=== PATIENT | female | born 1940 | race Two or more races ===

== ENCOUNTER 2019-04-23 08:05 | Emergency (ER) | payer OTHER ==
[~2019-04-23] VITALS: Ht 154.9 cm; Wt 79.4 kg
[2019-04-23 08:35] LABS: Urine WBC None Seen /hpf (0 - 5)
[2019-04-23 08:37] LABS: Basophils # (auto) 0.1 uL; Eosinophils # (auto) 0.1 uL; Hemoglobin 12.7 g/dL (12.2-16.2); Monocytes # (auto) 0.5 uL; Neutrophils # (auto) 4.3 uL; Nucleated Red Blood Cells % 0.1 %
[2019-04-23 08:38] LABS: Basophils % (auto) 1.2 % (0.0-2.0); Eosinophils % (auto) 1.6 % (0.0-7.0); Hematocrit 37.4 % (36.0-46.0); Lymphocytes # (auto) 1.4 uL; Lymphocytes % (auto) 21.6 % (10.0-50.0); Mean Corpuscular Hemoglobin 34.4 pg (28.0-32.0); Mean Corpuscular Hgb Conc. 34.1 g/dL (32.0-36.0); Mean Corpuscular Volume 100.9 fL (80.0-100.0); Monocytes % (auto) 7.9 % (0.0-12.0); Neutrophils % (auto) 67.7 % (37.0-80.0); Platelet Count (auto) 195 10^3/uL (140-450); Red Blood Cells 3.71 10^6/uL (4.0-5.20); Red Cell Distribution Width 14.9 % (11.8-14.3); White Blood Cell 6.3 10^3/uL (4.4-10.8)
[2019-04-23 08:49] LABS: Urine Bacteria NONE SEEN /hpf (None Seen); Urine Blood Negative /uL (Negative); Urine Specific Gravity 1.004 (1.001-1.035)
[2019-04-23 08:52] LABS: Albumin 3.4 g/dL (3.4-5.0); BUN/Creatinine Ratio 16.2; Calcium 8.2 mg/dL (8.5-10.1)
[2019-04-23 08:55] LABS: Bilirubin, Total 0.2 mg/dL (0.2-1.0); Total Protein 7.6 g/dL (6.4-8.2)
[2019-04-23 09:04] LABS: INR < 0.93 (0.9-1.15); Partial Thromboplastin Time 34.8 sec (23.64-32.05)
[2019-04-23 09:55] VITALS: BP 166/84
== END 2019-04-23 09:58 | disposition home or self-care (01) ==
LOC: ER 08:05
DX: R04.0 Epistaxis (principal); Z88.6 Allergy status to analgesic agent
CPT/HCPCS: 36415; 80053; 81001; 85025; 85610; 85730

== ENCOUNTER 2022-06-15 11:59 | Emergency (ER) | payer OTHER ==
[~2022-06-15] VITALS: Ht 152.4 cm; Wt 80.0 kg
[2022-06-15 13:21] VITALS: BP 145/79
[2022-06-15] MEDS ORDERED: PRED10TA PO (14:36)
[2022-06-15] MEDS ORDERED: LORA10CA7 PO (14:36)
== END 2022-06-15 14:53 | disposition home or self-care (01) ==
LOC: ER 11:59
DX: R21 Rash and other nonspecific skin eruption (principal); L29.9 Pruritus, unspecified; Z79.899 Other long term (current) drug therapy; Z88.5 Allergy status to narcotic agent

== ENCOUNTER → 2023-09-17 | Outpatient (CLI) | payer OTHER ==
[~2023-09-17] MED LIST: LORA10CA PO; PRED10TA PO
[2023-09-17 11:45] LABS: Basophils # (auto) 0.1 10 ^3/uL (0-0.2); Eosinophils # (auto) 0.4 10 ^3/uL (0-0.8); Monocytes # (auto) 0.8 10 ^3/uL (0-1.3); Neutrophils # (auto) 3.7 10 ^3/uL (1.6-8.6)
[2023-09-17 11:46] LABS: Basophils % (auto) 0.9 % (0.0-2.0); Eosinophils % (auto) 4.4 % (0.0-7.0); Hematocrit 38.5 % (36.0-46.0); Hemoglobin 12.7 g/dL (12.2-16.2); Lymphocytes # (auto) 3.8 10 ^3/uL (0.4-5.4); Mean Corpuscular Hemoglobin 34.2 pg (28.0-32.0); Mean Corpuscular Volume 103.5 fL (80.0-100.0); Neutrophils % (auto) 42.7 % (37.0-80.0); Red Blood Cells 3.72 10^6/uL (4.0-5.20); Red Cell Distribution Width 15.5 % (11.8-14.3); White Blood Cell 8.7 10^3/uL (4.4-10.8)
[2023-09-17 12:27] LABS: Alanine Aminotransferase 13 U/L (7-40); Albumin 4.1 g/dL (3.2-4.8); Alkaline Phosphatase 98 U/L (46-116); Anion Gap 7 (5-15); Aspartate Aminotransferase 23 U/L (13-40); BUN/Creatinine Ratio 13.3 (10.0-20.0); Blood Urea Nitrogen 10 mg/dL (9-23); Calcium 9.1 mg/dL (8.5-10.1); Carbon Dioxide 25 mmol/L (20-30); Chloride 107 mmol/L (98-107); Glucose 127 mg/dL (74-106); Potassium 4.3 mmol/L (3.5-5.1); Sodium 139 mmol/L (136-145)
[2023-09-17 12:28] LABS: Bilirubin, Total 0.3 mg/dL (0.2-1.0); Total Protein 7.3 g/dL (5.7-8.2)
[2023-09-17 12:32] LABS: Erythrocyte Sedimentation Rate 49 mm/hr (0-20)
[2023-09-17 12:36] LABS: CRP High Sensitivity 1.05 mg/dL (<1.0)
== END | disposition home or self-care (01) ==
LOC: LAB 11:31
PROVIDERS: ATTEND Internal Medicine Rheumatology
DX: M06.9 Rheumatoid arthritis, unspecified (principal)
CPT/HCPCS: 36415; 80053; 85025; 85652; 86141

== ENCOUNTER → 2024-02-29 | Outpatient (CLI) | payer OTHER ==
[2024-02-29 12:23] LABS: Eosinophils # (auto) 0.3 10 ^3/uL (0-0.8); Hemoglobin 12.9 g/dL (12.2-16.2); Lymphocytes # (auto) 2.6 10 ^3/uL (0.4-5.4); Lymphocytes % (auto) 28.7 % (10.0-50.0); Monocytes # (auto) 0.9 10 ^3/uL (0-1.3); Neutrophils # (auto) 5.2 10 ^3/uL (1.6-8.6)
[2024-02-29 12:24] LABS: Basophils # (auto) 0 10 ^3/uL (0-0.2); Basophils % (auto) 0.4 % (0.0-2.0); Hematocrit 37.5 % (36.0-46.0); Mean Corpuscular Hgb Conc. 34.5 g/dL (32.0-36.0); Mean Corpuscular Volume 101.3 fL (80.0-100.0); Monocytes % (auto) 9.9 % (0.0-12.0); Red Cell Distribution Width 15.3 % (11.8-14.3)
[2024-02-29 12:54] LABS: Alanine Aminotransferase 20 U/L (7-40); Albumin 4.1 g/dL (3.2-4.8); Alkaline Phosphatase 90 U/L (46-116); Anion Gap 6 (5-15); Aspartate Aminotransferase 25 U/L (13-40); BUN/Creatinine Ratio 13.2 (10.0-20.0); Blood Urea Nitrogen 9 mg/dL (9-23); Calcium 9.5 mg/dL (8.7-10.4); Carbon Dioxide 25 mmol/L (20-30); Chloride 106 mmol/L (98-107); Glucose 92 mg/dL (74-106); Potassium 4.3 mmol/L (3.5-5.1); Sodium 137 mmol/L (136-145)
[2024-02-29 12:55] LABS: Bilirubin, Total 0.3 mg/dL (0.2-1.0); Total Protein 7.5 g/dL (5.7-8.2)
== END | disposition home or self-care (01) ==
LOC: LAB 12:08
PROVIDERS: ATTEND Internal Medicine Rheumatology
DX: M05.79 Rheumatoid arthritis with rheumatoid factor of multiple sites without organ or systems involvement (principal)
CPT/HCPCS: 36415; 80053; 85025

== ENCOUNTER 2024-06-03 10:16 | Emergency (ER) | payer OTHER ==
[~2024-06-03] VITALS: Ht 152.4 cm; Wt 81.4 kg
[2024-06-03 11:33] VITALS: BP 142/66; PULSE 82; RESP 18; TEMP 97.9; O2SAT 94
[2024-06-03 11:36] LABS: Basophils # (auto) 0.1 10 ^3/uL (0-0.2); Eosinophils # (auto) 0.1 10 ^3/uL (0-0.8); Monocytes # (auto) 0.6 10 ^3/uL (0-1.3); Neutrophils # (auto) 5.3 10 ^3/uL (1.6-8.6)
[2024-06-03 11:37] LABS: Basophils % (auto) 1.1 % (0.0-2.0); Eosinophils % (auto) 1.6 % (0.0-7.0); Hematocrit 37.6 % (36.0-46.0); Hemoglobin 13.2 g/dL (12.2-16.2); Lymphocytes # (auto) 2.2 10 ^3/uL (0.4-5.4); Lymphocytes % (auto) 26.6 % (10.0-50.0); Mean Corpuscular Hemoglobin 34.8 pg (28.0-32.0); Mean Corpuscular Hgb Conc. 35.2 g/dL (32.0-36.0); Mean Corpuscular Volume 99.1 fL (80.0-100.0); Monocytes % (auto) 7.3 % (0.0-12.0); Neutrophils % (auto) 63.4 % (37.0-80.0); Nucleated Red Blood Cells % 0.1 %; Red Blood Cells 3.79 10^6/uL (4.0-5.20); Red Cell Distribution Width 14.6 % (11.8-14.3); White Blood Cell 8.4 10^3/uL (4.4-10.8)
[2024-06-03] MEDS: FAMOTIDINE 20 MG TAB PO ONE (11:43)
[2024-06-03 11:44] LABS: Urine Bacteria None Seen /hpf (None Seen); Urine WBC None Seen /hpf (0 - 5)
[2024-06-03] MEDS: PANTOPRAZOLE 40 MG/10 ML VIAL INJ IV ONE (11:44)
[2024-06-03] MEDS: MAALOX PLUS or MAALOX 30 ML PO ONE (11:44)
[2024-06-03] MEDS: LIDOCAINE VISCOUS 2% 15ML UD PO ONE (11:44)
[2024-06-03 11:47] VITALS: PULSE 81
[2024-06-03 11:51] LABS: INR 1.04 (0.9-1.15); Partial Thromboplastin Time 35.7 SEC (24.5-34.5)
[2024-06-03 11:52] LABS: Urine Blood Negative /uL (Negative); Urine Clarity Clear (Clear); Urine Protein, UAD Negative (Negative); Urine Specific Gravity 1.004 (1.001-1.035); Urine Urobilinogen Normal (Negative); Urine pH 6.5 (5.0-9.0)
[2024-06-03 11:54] LABS: Alanine Aminotransferase 28 U/L (7-40); Albumin 4.1 g/dL (3.2-4.8); Alkaline Phosphatase 93 U/L (46-116); Anion Gap 11 (5-15); Aspartate Aminotransferase 35 U/L (13-40); BUN/Creatinine Ratio 14.7 (10.0-20.0); Blood Urea Nitrogen 10 mg/dL (9-23); Calcium 9.9 mg/dL (8.7-10.4); Carbon Dioxide 23 mmol/L (20-30); Chloride 102 mmol/L (98-107); Glucose 84 mg/dL (74-106); Lipase 43 U/L (12-53); Sodium 136 mmol/L (136-145)
[2024-06-03 11:55] LABS: Bilirubin, Total 0.5 mg/dL (0.2-1.0); Total Protein 7.5 g/dL (5.7-8.2)
[2024-06-03 12:00] LABS: Urine Color Light-Yellow (Yellow)
[2024-06-03] MEDS ORDERED: CLAR1TAB21 PO (12:25)
[2024-06-03] MEDS ORDERED: FAMO20TA10 PO (12:25)
[2024-06-03] MEDS ORDERED: LIDO2SOL26 MT (12:25)
[2024-06-03] MEDS ORDERED: AMOX500T86 PO (12:25)
[2024-06-03] MEDS ORDERED: MAA30LQ GT (12:25)
== END 2024-06-03 13:04 | disposition home or self-care (01) ==
LOC: ER 10:16
DX: K29.70 Gastritis, unspecified, without bleeding (principal); K80.20 Calculus of gallbladder without cholecystitis without obstruction; Z88.5 Allergy status to narcotic agent; Z79.899 Other long term (current) drug therapy; Z79.84 Long term (current) use of oral hypoglycemic drugs
CPT/HCPCS: 36415; 71046; 74176; 80053; 81001; 83605; 83690; 85025; 85610; 85730; 96374; 99285; J2470

== ENCOUNTER → 2024-06-27 | Outpatient (CLI) | payer OTHER ==
[~2024-06-27] MED LIST changes: +AMOX500T86 PO; +CLAR1TAB21 PO; +FAMO20TA10 PO; +LIDO2SOL26 MT; +MAA30LQ GT
[2024-06-27 10:43] LABS: Basophils # (auto) 0.1 10 ^3/uL (0-0.2); Basophils % (auto) 0.8 % (0.0-2.0); Eosinophils # (auto) 0.4 10 ^3/uL (0-0.8); Eosinophils % (auto) 4.4 % (0.0-7.0); Hematocrit 39.6 % (36.0-46.0); Hemoglobin 13.5 g/dL (12.2-16.2); Lymphocytes # (auto) 2.2 10 ^3/uL (0.4-5.4); Lymphocytes % (auto) 25.7 % (10.0-50.0); Mean Corpuscular Hemoglobin 34.6 pg (28.0-32.0); Mean Corpuscular Volume 101.7 fL (80.0-100.0); Monocytes # (auto) 0.9 10 ^3/uL (0-1.3); Monocytes % (auto) 10.4 % (0.0-12.0); Neutrophils % (auto) 58.7 % (37.0-80.0); Nucleated Red Blood Cells % 0.1 %; Platelet Count (auto) 199 10^3/uL (140-450); Red Blood Cells 3.89 10^6/uL (4.0-5.20); Red Cell Distribution Width 14.8 % (11.8-14.3); White Blood Cell 8.5 10^3/uL (4.4-10.8)
[2024-06-27 11:10] LABS: Alanine Aminotransferase 17 U/L (7-40); Albumin 3.9 g/dL (3.2-4.8); Alkaline Phosphatase 102 U/L (46-116); Anion Gap 2 (5-15); Aspartate Aminotransferase 24 U/L (13-40); BUN/Creatinine Ratio 11.3 (10.0-20.0); Bilirubin, Total 0.5 mg/dL (0.2-1.0); Blood Urea Nitrogen 8 mg/dL (9-23); Calcium 9.7 mg/dL (8.7-10.4); Carbon Dioxide 29 mmol/L (20-30); Chloride 106 mmol/L (98-107); Glucose 95 mg/dL (74-106); Potassium 4.3 mmol/L (3.5-5.1); Sodium 137 mmol/L (136-145); Total Protein 7.4 g/dL (5.7-8.2)
[2024-06-27 11:18] LABS: CRP High Sensitivity 1.62 mg/dL (<1.0)
[2024-06-27 12:06] LABS: Erythrocyte Sedimentation Rate 76 mm/hr (0-20)
== END | disposition home or self-care (01) ==
LOC: LAB 10:22
PROVIDERS: ATTEND Internal Medicine Rheumatology
DX: M05.79 Rheumatoid arthritis with rheumatoid factor of multiple sites without organ or systems involvement (principal)
CPT/HCPCS: 36415; 80053; 85025; 85652; 86141

== ENCOUNTER → 2024-08-01 | Outpatient (CLI) | payer OTHER ==
[2024-08-01 11:21] LABS: Basophils # (auto) 0.1 10 ^3/uL (0-0.2); Basophils % (auto) 0.8 % (0.0-2.0); Eosinophils # (auto) 0.4 10 ^3/uL (0-0.8); Eosinophils % (auto) 4.5 % (0.0-7.0); Hematocrit 38.5 % (36.0-46.0); Hemoglobin 13.4 g/dL (12.2-16.2); Lymphocytes # (auto) 2.6 10 ^3/uL (0.4-5.4); Lymphocytes % (auto) 29.4 % (10.0-50.0); Mean Corpuscular Hgb Conc. 34.8 g/dL (32.0-36.0); Mean Corpuscular Volume 100.5 fL (80.0-100.0); Monocytes # (auto) 0.9 10 ^3/uL (0-1.3); Monocytes % (auto) 9.8 % (0.0-12.0); Neutrophils # (auto) 4.9 10 ^3/uL (1.6-8.6); Neutrophils % (auto) 55.5 % (37.0-80.0); Nucleated Red Blood Cells % 0.1 %; Platelet Count (auto) 253 10^3/uL (140-450); Red Blood Cells 3.83 10^6/uL (4.0-5.20); Red Cell Distribution Width 14.4 % (11.8-14.3); White Blood Cell 8.8 10^3/uL (4.4-10.8)
[2024-08-01 11:36] LABS: Alanine Aminotransferase 13 U/L (7-40); Alkaline Phosphatase 101 U/L (46-116); Anion Gap 8 (5-15); Aspartate Aminotransferase 19 U/L (13-40); BUN/Creatinine Ratio 14.7 (10.0-20.0); Blood Urea Nitrogen 10 mg/dL (9-23); Calcium 9.5 mg/dL (8.7-10.4); Carbon Dioxide 23 mmol/L (20-30); Chloride 106 mmol/L (98-107); Glucose 99 mg/dL (74-106); Potassium 4.2 mmol/L (3.5-5.1); Sodium 137 mmol/L (136-145)
[2024-08-01 11:37] LABS: Albumin 4.2 g/dL (3.2-4.8); Bilirubin, Total 0.4 mg/dL (0.2-1.0); Total Protein 7.6 g/dL (5.7-8.2)
[2024-08-01 11:45] LABS: CRP High Sensitivity 1.66 mg/dL (<1.0)
[2024-08-01 11:50] LABS: Erythrocyte Sedimentation Rate 63 mm/hr (0-20)
[2024-08-02 08:06] LABS: Rheumatoid Arthritis Factor 287.5 IU/mL (<14.0)
[2024-08-03 11:07] LABS: CCP IgG/IgA Antibody >250 units (0-19)
== END | disposition home or self-care (01) ==
LOC: LAB 10:37
PROVIDERS: ATTEND Internal Medicine Rheumatology
DX: M05.79 Rheumatoid arthritis with rheumatoid factor of multiple sites without organ or systems involvement (principal)
CPT/HCPCS: 36415; 80053; 85025; 85652; 86141; 86200; 86431

== ENCOUNTER 2024-10-13 15:47 | Inpatient (IN) | payer OTHER ==
[~2024-10-13] VITALS: Ht 152.4 cm; Wt 90.0 kg
--- NOTE | 2024-10-13 16:34 | ED.PDOC ---
History of Present Illness(SKN HPI Comments A 83 YEAR OLD FEMALE PRESENTS TO THE ED WITH COMPLAINT OF RASH. PATIENT STATES SHE HAS BEEN EXPERIENCING A GENERALIZED BODY RASH WITH THE WORST PART BEING HER BILATERAL THIGHS. PT C/O BILATERAL THIGHS RASH PAIN WITH BURNING SENSATION. PATIENT IS CONCERNED SHE MAY BE HAVING AN ALLERGIC REACTION OR SKIN INFECTION BUT IS NOT SURE. PATIENT NOTES SHE GOT A CORTISONE INJECTION FRO HER RA 3 DAYS AGO, BUT IS NOT SURE IF THIS HAD ANYTHING TO DO WITH HER CURRENT SYMPTOMS. PATIENT DENIES FEVER, CHILLS, SHORTNESS OF BREATH, CHEST PAIN, ABDOMINAL PAIN, NAUSEA, VOMITING, HEADACHE, OR OTHER COMPLAINTS. NO OTHER SYMPTOMS OR MODIFYING FACTORS AT THIS TIME. PATIENT IS ALERT, ORIENTED X 4, AND HAS STEADY GAIT. Chief Complaint: Rash Time Seen by MD: 15:53 Primary Care Provider: BECKA History of Present Illness: Nurses Notes, Medications, Allergies Allergies: Coded Allergies: Codeine (Verified Allergy, Unknown, 04/23/19) Home Meds Reported Medications Methotrexate (Methotrexate) 2.5 Mg Tab, 1.5 MG PO, MG 10/14/24 Information Source: Patient Mode of Arrival: Ambulatory Severity: Moderate Timing: Days Duration: Since onset, Days Prehospital treatment: None Location: Generalized Mechanism: Spontaneous Onset Developed: Pruritus, Rash Occurence: Indoors Object: None Condition of Object: None Retained Foreign Body: No Wound Type: None Immunization Status of Animal: NA Tetanus: Unknown History of: None Associated Signs and Symptoms: Redness, Pain Past Medical History PAST MEDICAL HISTORY: Arthritis Past Medical History (Other): RA Surgical History: Denies all surgeries [employer] 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: 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 [employer] 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 Hx Family History Family History: Reviewed,noncontributory to illness Social History Smoker: Non-Smoker Alcohol: Denies ETOH Use Drugs: Denies Drug Use Lives In: Home Constitutional: denies: chills, diaphoresis, fatigue, fever, malaise, sweats, weakness, others EENTM: denies: blurred vision, double vision, ear bleeding, ear discharge, ear drainage, ear pain, ear ringing, eye pain, eye redness, hearing loss, mouth pain, mouth swelling, nasal discharge, nose bleeding, nose congestion, nose pain, photophobia, tearing, throat pain, throat swelling, voice changes, others Respiratory: denies: cough, hemoptysis, orthopnea, SOB at rest, shortness of breath, SOB with excertion, stridor, wheezing, others Cardiovascular: denies: chest pain, dizzy spells, diaphoresis, Dyspnea on exertion, edema, irregular heart beat, left arm pain, lightheadedness, palpitations, PND, syncope, others Gastrointestinal: denies: abdomen distended, abdominal pain, blood streaked bowels, constipated, diarrhea, dysphagia, difficulty swallowing, hematemesis, melena, nausea, poor appetite, poor fluid intake, rectal bleeding, rectal pain, vomiting, others Genitourinary: denies: abnormal vagina bleeding, burning, dyspareunia, dysuria, flank pain, frequency, hematuria, incontinence, pain, , vagina discharge, urgency, others Neurological: denies: dizziness, fainting, headache, left sided numbness, left sided weakness, numbness, paresthesia, pre-existing deficit, right sided numbness, right sided weakness, seizure, speech problems, tingling, tremors, weakness, others Musculoskeletal: denies: back pain, gout, joint pain, joint swelling, muscle pain, muscle stiffness, neck pain, others Integumetry: reports: rash; denies: bruises, change in color, change in hair/nails, dryness, laceration, lesions, lumps, wounds, others Allergic/Immunocompromised: denies: Difficulty Healing, Frequent Infections, Hives, Itching, others Hematologic/Lymphatic: denies: anemia, blood clots, easy bleeding, easy bruising, swollen glands, others Endocrine: denies: excessive hunger, excessive sweating, excessive thirst, excessive urination, flushing, intolerance to cold, intolerance to heat, unexplained weight gain, unexplained weight loss, others Psychiatric: denies: anxiety, bipolar disorder, depression, hopeless, panic disorder, schizophrenia, sleepless, suicidal, others All Other Systems: Reviewed and Negative Physical Exam General Appearance: No Apparent Distress, Normal HEENT: Normal ENT Inspection, PERRL/EOMI, Pharynx Normal, TMs Normal Neck: Full Range of Motion, Non-Tender, Normal, Normal Inspection Respiratory: Chest Non-Tender, Lungs Clear, No Accessory Muscle Use, No Respiratory Distress, Normal Breath Sounds Cardiovascular: No Edema, No JVD, No Murmur, No Gallop, Normal Peripheral Pulses, Regular Rate/Rhythm Breast Exam: Deferred Gastrointestinal: No Organomegaly, Non Tender, No Pulsatile Mass, Normal Bowel Sounds, Soft Genitalia: Deferred Pelvic: Deferred Rectal: Deferred Extremities: No calf tenderness, Normal capillary refill, Normal range of motion, No pedal edema, Tender (WITH LARGE PATCH SKIN RASH ON BILATERAL THIGHS, NO OPEN WOUND SEEN, NO DVT SIGNS. ) Musculoskeletal : Apperance: Normal Neurologic: Alert, diamond mounter II-XII nml as Tested, No Motor Deficits, Normal Affect, Normal Mood, No Sensory Deficits Cerebellar Function: Normal Reflexes: Normal Skin: Dry, Rash (ERYTHEMA SKIN RASH WITH HIVES, PAPULAR AND MACULAR SKIN RASH ON BACK, BUTTOCKS AND ARMS, NO OPEN WOUND SEEN. ), Warm, Other (LARGE ERYTH EMATOUS PATCHY SKIN RASH WITH MILD SWELLING OF BILATERAL ANTERIOR AND INNER THIGHS, MILD POSTERIOR THIGHS. ) Peripheral Pulses: 2+ carotid (R), 2+ carotid (L), 2+ dorsalis pedis (R), 2+ dorsalis pedis (L) Lymphatic: No Adenopathy Was a procedure done? Was a procedure done?: No Differential Diagnosis (INTG) Differential Diagnosis: N/A Differential Diagnosis: Atopic dermatitis, Cellulitis, Contact Dermatitis, Erysipelas, Impetigo, Pityriasis rosea, Scabies, Tinea, Urticaria Differential Diagnosis: N/A Abscess: N/A Differential Diagnosis: N/A X-Ray, Labs, Meds, VS Vital Signs Date Time Temp Pulse Resp B/P (MAP) Pulse Ox O2 Delivery O2 Flow Rate FiO2 10/13/24 16:20 98.1 111 16 150/80 (103) 96 98.1 10/13/24 16:20 111 16 96 Room Air 10/13/24 16:01 98.1 11 16 150/80 (103) 96 Lab Test 10/13/24 16:54 Range/Units White Blood Count 13.2 H 4.4-10.8 10^3/uL Red Blood Count 4.06 4.0-5.20 10^6/uL Hemoglobin 13.6 12.2-16.2 g/dL Hematocrit 40.8 36.0-46.0 % Mean Corpuscular Volume 100.6 H 80.0-100.0 fL Mean Corpuscular Hemoglobin 33.6 H 28.0-32.0 pg Mean Corpuscular Hemoglobin Concent 33.4 32.0-36.0 g/dL Red Cell Distribution Width 15.4 H 11.8-14.3 % Platelet Count 278 140-450 10^3/uL Mean Platelet Volume 8.8 6.9-10.8 fL Neutrophils (%) (Auto) 67.9 37.0-80.0 % Lymphocytes (%) (Auto) 19.1 10.0-50.0 % Monocytes (%) (Auto) 12.0 0.0-12.0 % Eosinophils (%) (Auto) 0.6 0.0-7.0 % Basophils (%) (Auto) 0.4 0.0-2.0 % Neutrophils # (Auto) 9.0 H 1.6-8.6 10 ^3/uL Lymphocytes # (Auto) 2.5 0.4-5.4 10 ^3/uL Monocytes # (Auto) 1.6 H 0-1.3 10 ^3/uL Eosinophils # (Auto) 0.1 0-0.8 10 ^3/uL Basophils # (Auto) 0.1 0-0.2 10 ^3/uL Nucleated Red Blood Cells 0.1 % Sodium Level 133 L 136-145 mmol/L Potassium Level 4.3 3.5-5.1 mmol/L Chloride Level 102 98-107 mmol/L Carbon Dioxide Level 21 20-31 mmol/L Anion Gap 10 5-15 Blood Urea Nitrogen 24 H 9-23 mg/dL Creatinine 1.07 H 0.550-1.02 mg/dL Glomerular Filtration Rate Calc 52 >90 mL/min BUN/Creatinine Ratio 22.4 H 10.0-20.0 Serum Glucose 121 H 74-106 mg/dL Lactic Acid Level 2.0 0.4-2.0 mmol/L Calcium Level 9.4 8.7-10.4 mg/dL Current Medications Medications (Trade) Dose Ordered Sig/Teresa Route Start Time Stop Time Status Last Admin Sodium Chloride 500 ml @ 500 mls/hr Q1H ONCE IV 10/13/24 18:00 10/13/24 18:59 DC 10/13/24 18:05 Sodium Chloride 1,000 ml @ 125 mls/hr Q8H ONCE IV 10/13/24 18:00 10/14/24 01:59 DC 10/13/24 18:50 X-Ray, Labs, Meds, VS Comment EXTERNAL NOTES: NONE LABS ORDERED: CBC, BMP, LACTIC ACID W/ REFLEX, AND BLOOD CULTURE REVIEWED AND INTERPRETED RESULTS: IMAGING ORDERED: NONE INDEPENDENT HISTORIANS: NONE TREATMENTS ORDERED: BENADRYL 25MG IV, ROCEPHIN 1G IV, PEPCID 20MG IV PATIENT'S CASE AND RESULTS HAVE BEEN DISCUSSED WITH THE ED ATTENDING PHYSICIAN AND THEY AGREE WITH MY PLAN OF CARE. UPON MY PHYSICAL EXAMINATION, THE PATIENT HAD A PAPULAR AND MACULAR SKIN RASH NOTED TO HER LOWER BACK, BUTTOCKS, AND ANTERIOR BILATERAL THIGHS CONSISTENT WITH AN ALLERGIC REACTION AND POSSIBLE SOFT TISSUE INFECTION. MY DIFFERENTIALS INCLUDE, ALLERGIC REACTION, ERYSIPELAS, CELLULITIS, CONTACT DERMATITIS, ATOPIC DERMATITIS. DUE TO THE PATIENT'S SEVERITY OF HER ALLERGIC REACTION AND SUSPECTED SOFT TISSUE INFECTION, I HAVE DETERMINED THE PATIENT SHOULD BE ADMITTED FOR FURTHER TREATMENT AND EVALUATION. THE ON-CALL HOSPITALIST WILL BE CONTACTED FOR ADMISSION OF THIS PATIENT. Time of 1ST Reevaluation: 17:54 Reevaluation 1ST: Improved Patient Education/Counseling: Diagnosis, Treatment Family Education/Counseling: Diagnosis, Treatment Departure 1 Departure Time of Disposition: 18:00 Impression: Primary Impression: Severe allergic reaction Qualified Codes: T78.40XA - Allergy, unspecified, initial encounter Additional Impression: Suspected soft tissue infection Disposition: ADMITTED INPATIENT Admit to: Med Surg Condition: Serious Critical Care Note Critical Care Time?: No Stability Stability form required: No Unstable for transfer: Requires medication, ED Physician Assesment, Possible rapid decline I personally scribed for OLVIN GARIBAY ([email or web address]) on 10/13/24 at 16:34. Electronically submitted by Silver Quiroz ([email or web address]). I personally scribed for OLVIN GARIBAY ([email or web address]) on 10/13/24 at 17:18. Electronically submitted by Silver Quiroz ([email or web address]). OLVIN GARIBAY Oct 13, 2024 16:34
[2024-10-13] MEDS ORDERED: methylPREDNISolone SOD SUCC 125 MG/2 ML VL IV ONE (16:45)
[2024-10-13] MEDS: cefTRIAXone 1GM/50ML D5W 50 ML IV ONE (16:45)
[2024-10-13] MEDS: FAMOTIDINE (10MG/ML) 2ML VL IV ONE (16:45)
[2024-10-13] MEDS: diphenhdrAMINE HCL 50 MG/1 ML VL IV ONE (16:45)
[2024-10-13 17:41] LABS: Basophils # (auto) 0.1 10 ^3/uL (0-0.2); Basophils % (auto) 0.4 % (0.0-2.0); Eosinophils # (auto) 0.1 10 ^3/uL (0-0.8); Eosinophils % (auto) 0.6 % (0.0-7.0); Hematocrit 40.8 % (36.0-46.0); Hemoglobin 13.6 g/dL (12.2-16.2); Lymphocytes # (auto) 2.5 10 ^3/uL (0.4-5.4); Lymphocytes % (auto) 19.1 % (10.0-50.0); Mean Corpuscular Hemoglobin 33.6 pg (28.0-32.0); Mean Corpuscular Hgb Conc. 33.4 g/dL (32.0-36.0); Mean Corpuscular Volume 100.6 fL (80.0-100.0); Monocytes # (auto) 1.6 10 ^3/uL (0-1.3); Neutrophils % (auto) 67.9 % (37.0-80.0); Nucleated Red Blood Cells % 0.1 %; Platelet Count (auto) 278 10^3/uL (140-450); Red Blood Cells 4.06 10^6/uL (4.0-5.20); Red Cell Distribution Width 15.4 % (11.8-14.3); White Blood Cell 13.2 10^3/uL (4.4-10.8)
[2024-10-13 17:46] LABS: Chloride 102 mmol/L (98-107); Potassium 4.3 mmol/L (3.5-5.1)
[2024-10-13 17:47] LABS: Anion Gap 10 (5-15); Carbon Dioxide 21 mmol/L (20-31)
[2024-10-13 17:48] LABS: Calcium 9.4 mg/dL (8.7-10.4)
[2024-10-13 17:52] LABS: BUN/Creatinine Ratio 22.4 (10.0-20.0)
[2024-10-13 17:53] LABS: Blood Urea Nitrogen 24 mg/dL (9-23); Glucose 121 mg/dL (74-106); Sodium 133 mmol/L (136-145)
[2024-10-13] MEDS: SODIUM CHLORIDE 0.9% 500 ML IV ONE (18:05)
[2024-10-13] MEDS: SODIUM CHLORIDE 0.9% 1,000 ML IV ONE (18:50)
[2024-10-13] MEDS ORDERED: MORPHINE SULFATE INJ 2 MG/ml SYRG IV PRN ×2 (22:00)
[2024-10-13] MEDS ORDERED: ONDANSETRON HCL 4 MG/2 ML VIAL IV PRN (22:00)
[2024-10-13] MEDS ORDERED: ACETAMINOPHEN 325 MG TAB PO PRN (22:00)
[2024-10-13] MEDS ORDERED: NITROGLYCERIN 0.4 MG SL TAB SL PRN (22:00)
[2024-10-13] MEDS: SODIUM CHLOR 0.9% PF (SALINE LOCK) 10ML VIAL/SYR IV SCH (22:00)
[2024-10-13] MEDS ORDERED: DOCUSATE SOD 100 MG CAP PO PRN (22:00)
[2024-10-13 22:53] LABS: Albumin 3.7 g/dL (3.2-4.8); Alkaline Phosphatase 96 U/L (46-116); Anion Gap 9 (5-15); Aspartate Aminotransferase 36 U/L (13-40); BUN/Creatinine Ratio 24.4 (10.0-20.0); Blood Urea Nitrogen 21 mg/dL (9-23); Carbon Dioxide 22 mmol/L (20-31); Chloride 106 mmol/L (98-107); Magnesium 2.3 mg/dL (1.6-2.6); Potassium 4.2 mmol/L (3.5-5.1); Sodium 137 mmol/L (136-145)
[2024-10-13 22:54] LABS: Bilirubin, Total 0.6 mg/dL (0.2-1.0); Total Protein 6.8 g/dL (5.7-8.2)
[2024-10-13 22:55] LABS: Alanine Aminotransferase 62 U/L (7-40); Glucose 108 mg/dL (74-106)
--- NOTE | 2024-10-13 23:01 | DVHHPRES ---
History of Present Illness Resident Creating Document: MARISOL JARAMILLO RESIDENT History of Present Illness Patient is 83 years old female with past medical history of rheumatoid arthritis on methotrexate and Humira not taking regularly because with the insurance issue came with a complaint of rash from trunk to the bilateral legs. Patient reported that she started noting rash 3 days before on her lower trunk and in the thigh especially at the beginning. As per patient rashes were scattered initially then the almost together. Patient described rash as itchy, painful. Have rashes on the high anterior aspect and also on the medial aspect, on the leg especially on the back of the leg in the calf muscles, on the lower buttock, and partly in the trunk and left upper arm and some scattered lesion all over the body. Patient with history of rheumatoid arthritis on methotrexate and Humira. As per patient as her insurance was not covering while she did not take her medication lately. She denied taking any new medications or new food or any exposure to allergens, denied hiking or sick contact. Initial lab workup revealed leukocytosis with WBC 13.2, MCV 100.6, lactic acid 1.2, C-reactive protein 7.5, TSH 1.87, ALT elevated 62, serum creatinine/serum magnesium/albumin/bilirubin/ALT/alkaline phosphatase with a normal limit. CXR - no acute cardiopulmonary disease noted. Past Medical History Rheumatoid arthritis Past Surgical History Bilateral knee surgery, Family History Noncontributory Past Social History Denies smoking/alcoholism/drug abuse, lives alone in her home Review of Systems Review of Systems Allergy- codeine Patient was seen today at the bedside. Cardiovascular- deny acute chest pain or shortness of breath or cough or palpitation Respiratory- denies cough or short of breath or wheezing Gastrointestinal- denies any rectal bleeding, nausea or vomiting Musculoskeletal-denies acute joint swelling or tenderness or redness Neurological- denies acute dysarthria, dysphagia, change in vision Psychiatry- denies depression or SI or HI Allergies: Coded Allergies: Codeine (Verified Allergy, Unknown, 04/23/19) Medications Current Medications Medications Dose Ordered Sig/Teresa Route Start Time Stop Time Status Last Admin Dose Admin Sodium Chloride 10 ml Q8HR IV 10/13/24 22:00 Ondansetron HCl 4 mg Q4HP PRN IV 10/13/24 22:00 Docusate Sodium 100 mg BIDPRN PRN PO 10/13/24 22:00 Acetaminophen 650 mg Q6HP PRN PO 10/13/24 22:00 Morphine Sulfate 2 mg Q4HPRN PRN IV 10/13/24 22:00 UNV Nitroglycerin 0.4 mg Q5MINP PRN SL 10/13/24 22:00 Morphine Sulfate 2 mg Q30M PRN IV 10/13/24 22:00 UNV Exam Vital Signs Vital Signs Date Time Temp Pulse Resp B/P (MAP) Pulse Ox O2 Delivery O2 Flow Rate FiO2 10/13/24 16:20 98.1 111 16 150/80 (103) 96 98.1 10/13/24 16:20 Room Air Exam General examination- awake, alert, oriented, HEENT- PEERLA, no acute nasal discharge Cardiovascular- S1-S2 audible, rate and rhythm regular, no murmur Respiratory- CTAB, no wheeze or rhonchi Gastrointestinal-nontender, bowel sound+. Nondistended Musculoskeletal-no acute joint swelling or tenderness or redness# Lower extremity- maculopapular rash on the anterior and medial thigh, in the leg especially back of the leg, on the left upper arm, scattered on the lower buttock on the back, scattered lesion in the trunk of the body. Neurological- cranial nerves intact, no acute dysarthria or dysphagia Psychiatry- denies depression or SI or HI Skin- maculopapular rash on the anterior and medial thigh, in the leg especially back of the leg, on the left upper arm, scattered on the lower buttock on the back, scattered lesion in the trunk of the body. Labs/Xrays Labs Test 10/13/24 22:20 10/13/24 16:54 Range/Units Sodium Level 137 136-145 mmol/L Potassium Level 4.2 3.5-5.1 mmol/L Chloride Level 106 98-107 mmol/L Carbon Dioxide Level 22 20-31 mmol/L Anion Gap 9 5-15 Blood Urea Nitrogen 21 9-23 mg/dL Creatinine 0.86 0.550-1.02 mg/dL Glomerular Filtration Rate Calc 67 >90 mL/min BUN/Creatinine Ratio 24.4 H 10.0-20.0 Serum Glucose 108 H 74-106 mg/dL Lactic Acid Level 1.2 0.4-2.0 mmol/L Calcium Level 9.0 8.7-10.4 mg/dL Magnesium Level 2.3 1.6-2.6 mg/dL Total Bilirubin 0.6 0.2-1.0 mg/dL Aspartate Amino Transferase (AST) 36 13-40 U/L Alanine Aminotransferase (ALT) 62 H 7-40 U/L Alkaline Phosphatase 96 46-116 U/L Total Protein 6.8 5.7-8.2 g/dL Albumin 3.7 3.2-4.8 g/dL White Blood Count 13.2 H 4.4-10.8 10^3/uL Red Blood Count 4.06 4.0-5.20 10^6/uL Hemoglobin 13.6 12.2-16.2 g/dL Hematocrit 40.8 36.0-46.0 % Mean Corpuscular Volume 100.6 H 80.0-100.0 fL Mean Corpuscular Hemoglobin 33.6 H 28.0-32.0 pg Mean Corpuscular Hemoglobin Concent 33.4 32.0-36.0 g/dL Red Cell Distribution Width 15.4 H 11.8-14.3 % Platelet Count 278 140-450 10^3/uL Mean Platelet Volume 8.8 6.9-10.8 fL Neutrophils (%) (Auto) 67.9 37.0-80.0 % Lymphocytes (%) (Auto) 19.1 10.0-50.0 % Monocytes (%) (Auto) 12.0 0.0-12.0 % Eosinophils (%) (Auto) 0.6 0.0-7.0 % Basophils (%) (Auto) 0.4 0.0-2.0 % Neutrophils # (Auto) 9.0 H 1.6-8.6 10 ^3/uL Lymphocytes # (Auto) 2.5 0.4-5.4 10 ^3/uL Monocytes # (Auto) 1.6 H 0-1.3 10 ^3/uL Eosinophils # (Auto) 0.1 0-0.8 10 ^3/uL Basophils # (Auto) 0.1 0-0.2 10 ^3/uL Nucleated Red Blood Cells 0.1 % Assessment/Plan Assessment/Plan # maculopapular rash under evaluation -continue methylprednisolone 40 mg IV b.i.d. -continue Benadryl as prescribed -continue IV fluid as prescribed # leukocytosis maybe reactive to the rash -monitor CBC # rheumatoid arthritis -continue monitoring Goals of care/advance care planning; FULL CODE; discussed with the patient >15 minutes PUD prophylaxis: Famotidine DVT prophylaxis: Lovenox Plan discussed with Dr. Kennedy, nursing staff, patient Total time spent on patient evaluation, chart review, assessment and plan, discussion discussion >30 minutes Plan discussed with: Patient Plan discussed with: Patient, Other (RN) My Orders Orders - MARISOL JARAMILLO Procedure Category Date Status Time Admit ADMIT 10/13/24 Transmitted 21:53 Code Status CODE 10/13/24 Transmitted 21:53 Sodium Chloride Lock PHA 10/13/24 In Process (Saline Lock Ns) 22:00 Ondansetron Hcl PHA 10/13/24 In Process (Zofran) 22:00 Docusate Sodium PHA 10/13/24 In Process Capsule (Colace 22:00 Complete Blood Count LAB 10/14/24 Verified 04:00 Comprehensive LAB 10/14/24 Verified Metabolic Panel 04:00 Acetaminophen Tablet PHA 10/13/24 In Process (Tylenol Tablet) 22:00 Morphine Sulfate PHA 10/13/24 Pending Injection 22:00 Nitroglycerin PHA 10/13/24 In Process Sublingual (Ntrostat 22:00 Morphine Sulfate PHA 10/13/24 Pending Injection 22:00 Oxygen By Nasal RT 10/13/24 Transmitted Cannula 21:53 Stat Ekg For Chest ANDREW 10/13/24 In Process Pain 21:53 Notify Md Of Changes ANDREW 10/13/24 In Process From Base 21:53 Population Health Manager For ANDREW 10/13/24 In Process 24 Hours 21:53 Emergency Dysrhythmia ANDREW 10/13/24 In Process Protocol 21:53 Rhythm Strips Once ANDREW 10/13/24 In Process Every Shift 21:53 Ashlee; Direct LAB 10/13/24 In Process 21:58 Thyroid Stimulating LAB 10/13/24 In Process Hormone 22:00 Chest Xray 1 View XY 10/13/24 Logged 22:01 C-Reactive Protein LAB 10/13/24 In Process 22:23 Erythrocyte LAB 10/13/24 Logged Sedimentation Rate 22:23 Date of Service: Oct 13, 2024 Billing Provider: NEO KENNEDY MD Common Visit Codes: [id number] INP/OBS CARE (HIGH) Secondary Visit Codes: [id number] CARE PLAN 30 MINUTES MARISOL JARAMILLO Oct 13, 2024 23:01 NEO KENNEDY MD Oct 14, 2024 19:48
[2024-10-13] MEDS ORDERED: diphenhdrAMINE HCL 12.5 MG/5 ML UD GT PRN (23:15)
--- NOTE | 2024-10-13 23:31 | DVH ---
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 No pneumonia. Pleura: No effusion. No pneumothorax. Cardiomediastinal contours: Unremarkable Bones: Unremarkable IMPRESSION: 1. No acute disease.
[2024-10-14] VITALS (9 sets, daily range): BP systolic 112–156; BP diastolic 55–66; PULSE 60–102; RESP 16–20; TEMP 97.6–99.1; O2SAT 92–96
[2024-10-14] MEDS: SODIUM CHLORIDE 0.9% 1,000 ML IV SCH (01:15)
[2024-10-14] MEDS ORDERED: METH2.5T PO (02:19)
[2024-10-14] MEDS: diphenhdrAMINE HCL 12.5 MG/5 ML UD GT SCH (05:16)
[2024-10-14 08:19] LABS: Basophils # (auto) 0 10 ^3/uL (0-0.2); Basophils % (auto) 0.4 % (0.0-2.0); Eosinophils # (auto) 0.2 10 ^3/uL (0-0.8); Hematocrit 32.8 % (36.0-46.0); Hemoglobin 11.2 g/dL (12.2-16.2); Lymphocytes # (auto) 1.7 10 ^3/uL (0.4-5.4); Lymphocytes % (auto) 21.3 % (10.0-50.0); Mean Corpuscular Hemoglobin 34.5 pg (28.0-32.0); Mean Corpuscular Hgb Conc. 34.3 g/dL (32.0-36.0); Mean Corpuscular Volume 100.7 fL (80.0-100.0); Monocytes # (auto) 1.1 10 ^3/uL (0-1.3); Monocytes % (auto) 13.9 % (0.0-12.0); Neutrophils % (auto) 61.4 % (37.0-80.0); Nucleated Red Blood Cells % 0.1 %; Platelet Count (auto) 227 10^3/uL (140-450); Red Blood Cells 3.26 10^6/uL (4.0-5.20); Red Cell Distribution Width 15.3 % (11.8-14.3); White Blood Cell 8.1 10^3/uL (4.4-10.8)
[2024-10-14 08:31] LABS: Alkaline Phosphatase 85 U/L (46-116); Anion Gap 8 (5-15); Aspartate Aminotransferase 31 U/L (13-40); BUN/Creatinine Ratio 23.9 (10.0-20.0); Blood Urea Nitrogen 16 mg/dL (9-23); Carbon Dioxide 23 mmol/L (20-31); Glucose 87 mg/dL (74-106); Potassium 4.3 mmol/L (3.5-5.1); Sodium 138 mmol/L (136-145)
[2024-10-14 08:32] LABS: Alanine Aminotransferase 51 U/L (7-40); Albumin 3.3 g/dL (3.2-4.8); Bilirubin, Direct 0.2 mg/dL (<0.3); Bilirubin, Total 0.5 mg/dL (0.2-1.0); Calcium 8.5 mg/dL (8.7-10.4); Chloride 107 mmol/L (98-107); Total Protein 6.1 g/dL (5.7-8.2)
[2024-10-14 09:49] LABS: Erythrocyte Sedimentation Rate 53 mm/hr (0-20)
[2024-10-14] MEDS ORDERED: methylPREDNISolone SOD SUCC 40 MG/ML VL IV SCH (10:00)
[2024-10-14] MEDS ORDERED: diphenhdrAMINE-ZINC ACETATE 1 APPLIC APPL TOP PRN (13:00)
--- NOTE | 2024-10-14 15:24 | DVHPNRES ---
Progress Note Date Seen: Oct 14, 2024 Resident Creating Document: ARYPALOMOJAVIERFLAVIA RESIDENT Medical Necessity Reason Pt with a Central, PICC or Fol: No Subjective Review of Systems Patient is a 83-year-old female with a past medical history are described below came to the ED with a chief complaint of rash on bilateral lower extremity since the past 4 days. Patient reported that she developed maculopapular rash about 4 days ago which exaggerated in 24 hours to develop into large reddish purple patches on the anterp-medial thighs, lateral calves, lower back and the buttocks. Patient reports that the lesions were intensely itchy and initially was slightly swollen with the right leg feeling tired at the knee with difficulty bending. Patient went to the urgent care where she was reportedly given a short of cortisone and was prescribed triamcinolone ointment which did not help the patient much. Five patient denied fever, chills, new joint pain, shortness of breath. Patient denied use of new linen or clothes. Patient denied recent travel, bug bites, any new medications. At Admission Patient's blood pressure was stable and she was slightly tachycardic. Chest x-ray showed no acute cardiopulmonary disease. Patient was stable on room air Past medical history: Rheumatoid arthritis Past surgical history: Bilateral knee replacement surgery 15 and 5 years ago Social history: Denies smoking, alcohol, drug use lives at home Home medication: Methotrexate 2.5 mg 6 tablets weekly Review of systems Seen and examined at bedside. A/O x4. Patient reports itching on the bilateral thighs anteriorly and lateral calves. Denies pain, fever, chills. The rash is nonblanching, reddish purple large patches over the anterior medial thighs and lateral calves. Small patch seen on the left forearm in the cubital fossa. The lesions are warm to touch, nontender but sore, peripheral pulses felt. Objective vital signs Vital Sign Date Time Temp Pulse Resp B/P (MAP) Pulse Ox O2 Delivery O2 Flow Rate FiO2 10/14/24 13:00 97.7 80 17 136/57 (83) 96 97.7 10/14/24 00:22 Room Air* 0 21 Total Intake and Output 10/13/24 10/13/24 10/14/24 15:00 23:00 07:00 Intake Total 125 ml Balance 125 ml medications Current Medications Medications Dose Ordered Sig/Teresa Route Start Time Stop Time Status Last Admin Dose Admin Sodium Chloride 10 ml Q8HR IV 10/13/24 22:00 10/14/24 05:16 10 ML Ondansetron HCl 4 mg Q4HP PRN IV 10/13/24 22:00 Docusate Sodium 100 mg BIDPRN PRN PO 10/13/24 22:00 Acetaminophen 650 mg Q6HP PRN PO 10/13/24 22:00 Morphine Sulfate 2 mg Q4HPRN PRN IV 10/13/24 22:00 Nitroglycerin 0.4 mg Q5MINP PRN SL 10/13/24 22:00 Morphine Sulfate 2 mg Q30M PRN IV 10/13/24 22:00 Methylprednisolone Sodium Succinate 40 mg BID IV 10/14/24 10:00 Sodium Chloride 1,000 ml @ 100 mls/hr Q10H IV 10/14/24 01:15 10/14/24 10:33 100 MLS/HR Diphenhydramine HCl 25 mg Q6HP PRN IV 10/14/24 10:30 Zinc Acetate/ Diphenhydramine 1 applic Q6HP PRN TOP 10/14/24 13:00 Examination Physical Examination Gen - no pallor, no icterus, no cyanosis, no clubbing, no LAD, no edema . Skin - Patients skin is warm and dry. The rash is nonblanching, reddish purple large patches over the anterior medial thighs and lateral calves. Small patch seen on the left forearm in the cubital fossa. The lesions are warm to touch, nontender but sore, peripheral pulses felt. HEENT - normocephalic, atraumatic, moist mucous membranes. Neck - full ROM, no LAD, no JVD Pulmonary - B/L vesicular breath sounds. no crackles , no wheezing, no stridor. cardiovascular - normal S1,S2 heard. no murmurs heard. peripheral pulses normal radial 2+, pedal 2+. capillary refill normal <2 secs. GI - soft abdomen without tenderness to palpation . no hepatospleenomegaly. Bowel sounds normoactive Neurological - Patient is A/O X 3 . Bilateral upper extremity strength 5/5, bilateral lower extremity strength 5/5, no facial droop, normal speech, no tremor, no sensory deficiets. laboratory and microbiology Laboratory Tests 10/14/24 07:34 Test 10/14/24 07:34 Range/Units Serum Glucose 87 74-106 mg/dL Problem List/Assessment/Plan Problem List/Assessment/Plan Assessment and plan # ?Medication induced Rash # ?Vascultitis # SIRS positive on admission - patient had elevated - prelinary blood culture at 24 hrs negative - elevated ESR, CRP - ROSALIE ordered - ANCA panel ordered - urinalysis pending - patient given Solu-Medrol 40 mg IV b.i.d. - Benadryl cream for itching - Benadryl 25 mg q.6 p.r.n. IV for severe itching # H/o rheumatoid arthritis at [facility] methotrexate 2.5mg 6 tab weekly on mondays # Macrocytic hyperchromic anemia - Vitmain B12 - folate pending Goals of care discussed with the patient for over 27 minutes. Full code Plan discussed with Dr. Lopez Plan discussed with: Patient My Orders My Orders Orders - SIERRA HUDDLESTON RESIDENT Procedure Category Date Status Time Urinalysis LAB 10/14/24 Logged 12:52 Complement C3 & C4 LAB 10/14/24 In Process 12:54 Anca Panel LAB 10/14/24 In Process 12:54 Diphenhdramine-Zinc PHA 10/14/24 In Process Cream (Benadryl Crea 13:00 Date of Service: Oct 14, 2024 Billing Provider: EASTON CHACKO MD Common Visit Codes: [id number] INP/OBS CARE(HIGH) SIERRA HUDDLESTON RESIDENT Oct 14, 2024 15:24 EASTON CHACKO MD Oct 16, 2024 23:11
[2024-10-14] MEDS: methylPREDNISolone SOD SUCC 40 MG/ML VL IV SCH (18:29)
[2024-10-14] MEDS: diphenhdrAMINE HCL 50 MG/1 ML VL IV PRN (18:30)
[2024-10-15] VITALS (7 sets, daily range): BP systolic 113–143; BP diastolic 48–68; PULSE 18–91; RESP 14–97; TEMP 97.8–98.9; O2SAT 95–97
[2024-10-15 08:30] LABS: Basophils # (auto) 0 10 ^3/uL (0-0.2); Basophils % (auto) 0.2 % (0.0-2.0); Eosinophils # (auto) 0 10 ^3/uL (0-0.8); Monocytes # (auto) 0.2 10 ^3/uL (0-1.3); Neutrophils # (auto) 7.7 10 ^3/uL (1.6-8.6)
[2024-10-15 08:32] LABS: Eosinophils % (auto) 0.1 % (0.0-7.0); Hematocrit 36.1 % (36.0-46.0); Hemoglobin 12.6 g/dL (12.2-16.2); Lymphocytes # (auto) 1.3 10 ^3/uL (0.4-5.4); Lymphocytes % (auto) 14.2 % (10.0-50.0); Mean Corpuscular Hemoglobin 34.8 pg (28.0-32.0); Mean Corpuscular Hgb Conc. 34.8 g/dL (32.0-36.0); Monocytes % (auto) 2.2 % (0.0-12.0); Neutrophils % (auto) 83.3 % (37.0-80.0); Nucleated Red Blood Cells % 0.1 %; Platelet Count (auto) 224 10^3/uL (140-450); Red Blood Cells 3.61 10^6/uL (4.0-5.20); Red Cell Distribution Width 15.3 % (11.8-14.3); White Blood Cell 9.3 10^3/uL (4.4-10.8)
[2024-10-15 08:43] LABS: Anion Gap 9 (5-15); Carbon Dioxide 22 mmol/L (20-31); Chloride 107 mmol/L (98-107); Sodium 138 mmol/L (136-145)
[2024-10-15 08:44] LABS: Calcium 9.2 mg/dL (8.7-10.4)
[2024-10-15 08:49] LABS: BUN/Creatinine Ratio 14.3 (10.0-20.0); Blood Urea Nitrogen 11 mg/dL (9-23)
[2024-10-15 08:55] LABS: Glucose 212 mg/dL (74-106)
--- NOTE | 2024-10-15 23:07 | DVHPNRES ---
Progress Note Date Seen: Oct 15, 2024 Resident Creating Document: SIERRA HUDDLESTON RESIDENT Medical Necessity Reason Pt with a Central, PICC or Fol: No Subjective Review of Systems Patient is a 83-year-old female with a past medical history are described below came to the ED with a chief complaint of rash on bilateral lower extremity since the past 4 days. Patient reported that she developed maculopapular rash about 4 days ago which exaggerated in 24 hours to develop into large reddish purple patches on the anterp-medial thighs, lateral calves, lower back and the buttocks. Patient reports that the lesions were intensely itchy and initially was slightly swollen with the right leg feeling tired at the knee with difficulty bending. Patient went to the urgent care where she was reportedly given a short of cortisone and was prescribed triamcinolone ointment which did not help the patient much. Five patient denied fever, chills, new joint pain, shortness of breath. Patient denied use of new linen or clothes. Patient denied recent travel, bug bites, any new medications. At Admission Patient's blood pressure was stable and she was slightly tachycardic. Chest x-ray showed no acute cardiopulmonary disease. Patient was stable on room air Past medical history: Rheumatoid arthritis Past surgical history: Bilateral knee replacement surgery 15 and 5 years ago Social history: Denies smoking, alcohol, drug use lives at home Home medication: Methotrexate 2.5 mg 6 tablets weekly Review of systems Seen and examined at bedside. A/O x4. Patient reports itching on the bilateral thighs has improved. Denies pain, fever, chills. rash is nonblanching, reddish purple large patches over the anterior medial thighs and lateral calves- has improved since yesterday and the patient has less itching. Objective vital signs Vital Sign Date Time Temp Pulse Resp B/P (MAP) Pulse Ox O2 Delivery O2 Flow Rate FiO2 10/15/24 20:00 Room Air* 0 21 10/15/24 16:52 98.1 91 22 130/57 (81) 95 98.1 Total Intake and Output 10/14/24 10/14/24 10/15/24 15:00 23:00 07:00 Intake Total 1400 ml 850 ml Output Total 800 ml Balance 1400 ml 50 ml medications Current Medications Medications Dose Ordered Sig/Teresa Route Start Time Stop Time Status Last Admin Dose Admin Sodium Chloride 10 ml Q8HR IV 10/13/24 22:00 10/15/24 22:16 10 ML Ondansetron HCl 4 mg Q4HP PRN IV 10/13/24 22:00 Docusate Sodium 100 mg BIDPRN PRN PO 10/13/24 22:00 Acetaminophen 650 mg Q6HP PRN PO 10/13/24 22:00 Morphine Sulfate 2 mg Q4HPRN PRN IV 10/13/24 22:00 Nitroglycerin 0.4 mg Q5MINP PRN SL 10/13/24 22:00 Morphine Sulfate 2 mg Q30M PRN IV 10/13/24 22:00 Methylprednisolone Sodium Succinate 40 mg BID IV 10/14/24 10:00 10/15/24 22:15 40 MG Diphenhydramine HCl 25 mg Q6HP PRN IV 10/14/24 10:30 10/15/24 22:15 25 MG Zinc Acetate/ Diphenhydramine 1 applic Q6HP PRN TOP 10/14/24 13:00 Examination Physical Examination Gen - no pallor, no icterus, no cyanosis, no clubbing, no LAD, no edema . Skin - Patients skin is warm and dry. The rash is nonblanching, reddish purple large patches over the anterior medial thighs and lateral calves. Small patch seen on the left forearm in the cubital fossa. The lesions are warm to touch, nontender but sore, peripheral pulses felt. HEENT - normocephalic, atraumatic, moist mucous membranes. Neck - full ROM, no LAD, no JVD Pulmonary - B/L vesicular breath sounds. no crackles , no wheezing, no stridor. cardiovascular - normal S1,S2 heard. no murmurs heard. peripheral pulses normal radial 2+, pedal 2+. capillary refill normal <2 secs. GI - soft abdomen without tenderness to palpation . no hepatospleenomegaly. Bowel sounds normoactive Neurological - Patient is A/O X 3 . Bilateral upper extremity strength 5/5, bilateral lower extremity strength 5/5, no facial droop, normal speech, no tremor, no sensory deficiets. laboratory and microbiology Laboratory Tests 10/15/24 08:02 Test 10/15/24 08:02 Range/Units Serum Glucose 212 H 74-106 mg/dL Microbiology Date/Time Source Procedure Growth Status 10/13/24 16:54 Blood Blood Culture - Preliminary NO GROWTH AFTER 48 HOURS OF INCUBATION. Resulted Labs and/or images reviewed: Labs reviewed by me, Image(s) reviewed by me Problem List/Assessment/Plan Problem List/Assessment/Plan Assessment and plan # ?Medication induced Rash # ?Vascultitis # SIRS positive on admission - patient had elevated - prelinary blood culture at 24 hrs negative - elevated ESR, CRP - ROSALIE negative - ANCA panel ordered - urinalysis pending - patient given Solu-Medrol 40 mg IV b.i.d. - Benadryl cream for itching - Benadryl 25 mg q.6 p.r.n. IV for severe itching # H/o rheumatoid arthritis at home takes methotrexate 2.5mg 6 tab weekly on mondays # Macrocytic hyperchromic anemia - Vitmain B12 - folate pending Goals of care discussed with the patient for 20 minutes. Full code Plan discussed with Dr. Pugh Plan discussed with: Patient, Other (friend) My Orders My Orders Orders - SIER[facility] HUDDLEST[facility] RESIDENT Procedure Category Date Status Time Communication Order ORDERS 10/15/24 Transmitted 12:36 Addendum Addendum Addendum I was physically present for the penn portions of the service provided to patient by THE RESIDENT. I have reviewed the documentation, discussed the case with resident and agree with the resident's documentation except as noted. Also the patient's clinical case was discussed with the patient's nurse. This medical document was created using an electronic medical record system with computerized dictation system. Although this document has been carefully reviewed, there might still be some phonetic and typographical errors. These areas are purely typographical due to imperfections of the software programs, and do not reflect any compromise in the patient's medical care. Late signature. Date of Service: Oct 15, 2024 Billing Provider: ROGELIO PUGH MD Common Visit Codes: [id number] INP/OBS CARE(HIGH) Secondary Visit Codes: [id number] CARE PLAN 30 MINUTES (20 minutes) SIER[facility] HUDDLEST[facility] RESIDENT Oct 15, 2024 23:07 ROGELIO PUGH MD Oct 17, 2024 08:00
[2024-10-16 01:00] VITALS: BP 102/48; PULSE 61; RESP 18; TEMP 97.8; O2SAT 95
[2024-10-16 05:00] VITALS: BP 104/47; PULSE 57; RESP 17; TEMP 98.5; O2SAT 95
[2024-10-16 07:36] LABS: Chloride 106 mmol/L (98-107); Potassium 4.1 mmol/L (3.5-5.1); Sodium 137 mmol/L (136-145)
[2024-10-16 07:37] LABS: Anion Gap 8 (5-15); Carbon Dioxide 23 mmol/L (20-31)
[2024-10-16 07:38] LABS: Basophils # (auto) 0 10 ^3/uL (0-0.2); Basophils % (auto) 0.1 % (0.0-2.0); Eosinophils # (auto) 0 10 ^3/uL (0-0.8); Eosinophils % (auto) 0.1 % (0.0-7.0); Hematocrit 32.7 % (36.0-46.0); Lymphocytes # (auto) 1.5 10 ^3/uL (0.4-5.4); Lymphocytes % (auto) 8.5 % (10.0-50.0); Mean Corpuscular Hemoglobin 34.2 pg (28.0-32.0); Mean Corpuscular Hgb Conc. 33.6 g/dL (32.0-36.0); Mean Corpuscular Volume 101.6 fL (80.0-100.0); Monocytes # (auto) 1.1 10 ^3/uL (0-1.3); Monocytes % (auto) 6.1 % (0.0-12.0); Neutrophils # (auto) 15.4 10 ^3/uL (1.6-8.6); Neutrophils % (auto) 85.2 % (37.0-80.0); Platelet Count (auto) 220 10^3/uL (140-450); Red Blood Cells 3.22 10^6/uL (4.0-5.20); Red Cell Distribution Width 15.1 % (11.8-14.3); White Blood Cell 18.1 10^3/uL (4.4-10.8)
[2024-10-16 07:42] LABS: BUN/Creatinine Ratio 17.4 (10.0-20.0); Blood Urea Nitrogen 12 mg/dL (9-23)
[2024-10-16 07:44] LABS: Glucose 167 mg/dL (74-106)
[2024-10-16] MEDS ORDERED: DIPH2CRE EX (11:30)
[2024-10-16] MEDS ORDERED: CETI10CA PO (11:30)
[2024-10-16] MEDS ORDERED: METH4PAK PO (11:30)
[2024-10-16 14:31] VITALS: TEMP 36.9
--- NOTE | 2024-10-16 16:49 | DVHDSRES ---
Discharge Summary Date of Admission Resident Creating Document: RICHELLE JIN RESIDENT Oct 13, 2024 at 21:53 Date of Discharge: Oct 16, 2024 Admitting Diagnosis Rash Labs/Diagnostic Data: Laboratory Results Test 10/16/24 06:55 10/14/24 18:59 10/14/24 07:34 10/13/24 22:20 White Blood Count 18.1 10^3/uL (4.4-10.8) Red Blood Count 3.22 10^6/uL (4.0-5.20) Hemoglobin 11.0 g/dL (12.2-16.2) Hematocrit 32.7 % (36.0-46.0) Mean Corpuscular Volume 101.6 fL (80.0-100.0) Mean Corpuscular Hemoglobin 34.2 pg (28.0-32.0) Mean Corpuscular Hemoglobin Concent 33.6 g/dL (32.0-36.0) Red Cell Distribution Width 15.1 % (11.8-14.3) Platelet Count 220 10^3/uL (140-450) Mean Platelet Volume 8.8 fL (6.9-10.8) Neutrophils (%) (Auto) 85.2 % (37.0-80.0) Lymphocytes (%) (Auto) 8.5 % (10.0-50.0) Monocytes (%) (Auto) 6.1 % (0.0-12.0) Eosinophils (%) (Auto) 0.1 % (0.0-7.0) Basophils (%) (Auto) 0.1 % (0.0-2.0) Neutrophils # (Auto) 15.4 10 ^3/uL (1.6-8.6) Lymphocytes # (Auto) 1.5 10 ^3/uL (0.4-5.4) Monocytes # (Auto) 1.1 10 ^3/uL (0-1.3) Eosinophils # (Auto) 0 10 ^3/uL (0-0.8) Basophils # (Auto) 0 10 ^3/uL (0-0.2) Nucleated Red Blood Cells 0.0 % Sodium Level 137 mmol/L (136-145) Potassium Level 4.1 mmol/L (3.5-5.1) Chloride Level 106 mmol/L (98-107) Carbon Dioxide Level 23 mmol/L (20-31) Anion Gap 8 (5-15) Blood Urea Nitrogen 12 mg/dL (9-23) Creatinine 0.69 mg/dL (0.550-1.02) Glomerular Filtration Rate Calc 87 mL/min (>90) BUN/Creatinine Ratio 17.4 (10.0-20.0) Serum Glucose 167 mg/dL (74-106) Calcium Level 9.0 mg/dL (8.7-10.4) Erythrocyte Sedimentation Rate 53 mm/hr (0-20) Total Bilirubin 0.5 mg/dL (0.2-1.0) Direct Bilirubin 0.2 mg/dL (<0.3) Aspartate Amino Transferase (AST) 31 U/L (13-40) Alanine Aminotransferase (ALT) 51 U/L (7-40) Alkaline Phosphatase 85 U/L (46-116) Total Protein 6.1 g/dL (5.7-8.2) Albumin 3.3 g/dL (3.2-4.8) Lactic Acid Level 1.2 mmol/L (0.4-2.0) Magnesium Level 2.3 mg/dL (1.6-2.6) C-Reactive Protein High Sensitivity 7.50 mg/dL (<1.0) Thyroid Stimulating Hormone (TSH) 1.87 uIU/mL (0.55-4.78) Anti-Nuclear Antibody Screen Negative (Negative) Other Laboratory Tests 10/16/24 06:55 Brief Hx & Hospital Course: Patient is an 83-year-old female with a past medical history are described below came to the ED with a chief complaint of rash on bilateral lower extremity since the past 4 days. Past medical history: Rheumatoid arthritis Past surgical history: Bilateral knee replacement surgery 15 and 5 years ago Social history: Denies smoking, alcohol, drug use lives at home Home medication: Methotrexate 2.5 mg 6 tablets weekly Patient reported that she developed maculopapular rash about 4 days ago which exaggerated in 24 hours to develop into large reddish purple patches on the anterp-medial thighs, lateral calves, lower back and the buttocks. Patient reports that the lesions were intensely itchy and initially was slightly swollen with the right leg feeling tired at the knee with difficulty bending. Patient went to the urgent care where she was reportedly given a short of cortisone and was prescribed triamcinolone ointment which did not help the patient much. Five patient denied fever, chills, new joint pain, shortness of breath. Patient denied use of new linen or clothes. Patient denied recent travel, bug bites, any new medications. At Admission Patient's blood pressure was stable and she was slightly tachycardic. Chest x-ray showed no acute cardiopulmonary disease. Patient was stable on room air Seen and examined at bedside. A/O x4. Patient reports itching on the bilateral thighs anteriorly and lateral calves. Denies pain, fever, chills. The rash is nonblanching, reddish purple large patches over the anterior medial thighs and lateral calves. Small patch seen on the left forearm in the cubital fossa. The lesions are warm to touch, nontender but sore, peripheral pulses felt. Throughout the patient's hospitalization, her rash improved significantly, we gave glucocorticoids, antihistaminics movement on IV. She stated feeling better than on admission. We will order workup to rule out vasculitis, or other autoimmune diseases. Patient currently denies any chest pain, shortness of breath, lightheadedness, dizziness, vomiting, abdominal pain. She is currently tolerating diet, ambulatory. Physical examination on the day of discharge as below: Gen - no pallor, no icterus, no cyanosis, no clubbing, no LAD, no edema . Skin - Patients skin is warm and dry. The rash is nonblanching, reddish purple large patches over the anterior medial thighs and lateral calves. Small patch seen on the left forearm in the cubital fossa. The lesions are warm to touch, nontender but sore, peripheral pulses felt. HEENT - normocephalic, atraumatic, moist mucous membranes. Neck - full ROM, no LAD, no JVD Pulmonary - B/L vesicular breath sounds. no crackles , no wheezing, no stridor. cardiovascular - normal S1,S2 heard. no murmurs heard. peripheral pulses normal radial 2+, pedal 2+. capillary refill normal <2 secs. GI - soft abdomen without tenderness to palpation . no hepatosplenomegaly. Bowel sounds normoactive Neurological - Patient is A/O X 3 . Bilateral upper extremity strength 5/5, bilateral lower extremity strength 5/5, no facial droop, normal speech, no tremor, no sensory deficits. Discharge plan: Continue home medications as prescribed. Follow with PCP within one week, follow up in this clinic Continue Medrol Shar Continue Benadryl ointment Continue Zyrtec 10 mg p.o. q.d. Patient verbalized understanding agree with this plan, we spent over 35 minutes explaining the plan. Plan discussed with Dr. Pugh Operations or Procedures [place] [id number] Ph: [phone] DIAGNOSTIC IMAGING Diagnostic Imaging Report : [id number] Signed PATIENT: BREANA REESE ACCT: [id number] UNIT: [id number] : 1940 LOC: OVERFLOW ROOM / BED: 1020-ER / A AGE / SEX: 83 / F ADM STATUS: ADM IN SERVICE 00 ORDERING PHYSICIAN: MARISOL JARAMILLO PROCEDURE(s): CXR1 - CHEST XRAY 1 VIEW REASON: pna>? 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 No pneumonia. Pleura: No effusion. No pneumothorax. Cardiomediastinal contours: Unremarkable Bones: Unremarkable IMPRESSION: 1. No acute disease. ATED BY: NATALIA AUGUSTE MD DICTATED DATE/TIME: 10/13/242328 SIGNED BY: NATALIA AUGUSTE MD SIGNED DATE/TIME: 10/13/242328 CC: Condition at Discharge: Stable Final Diagnosis/Problems List # ?Medication induced Rash in thighs; mostly medial aspect, possible allergic reaction # possible Vascultitis # SIRS; can not rule out sepsis # H/o rheumatoid arthritis # Macrocytic hyperchromic anemia Discharge Disposition: Home Discharge Instruct/Medications Diet: Regular Activity: No Restrictions, As Tolerated Follow Up/Referral: [facility] with Dr. frye Medications: continue home meds as prescribed Discharge Statement: "Patient was advised to return to the ER or call 911 if any headaches, dizziness, shortness of breath, chest pain, abdominal pain, bleeding, fevers, or worsening of medical condition. Patient was counseled about treatment plan, medications, possible side effects, patientverbalized understanding. All questions were answered to the best of my ability. This discharge took greater then 30 minutes in planning, reviewing documentation, counseling the patient, and discussing with other team members." ASSESSMENT ASSESSMENT Assessment drug reaction Addendum Addendum Addendum I was physically present for the penn portions of the service provided to patient by THE RESIDENT. I have reviewed the documentation, discussed the case with resident and agree with the resident's documentation except as noted. Also the patient's clinical case was discussed with the patient's nurse. This medical document was created using an electronic medical record system with computerized dictation system. Although this document has been carefully reviewed, there might still be some phonetic and typographical errors. These areas are purely typographical due to imperfections of the software programs, and do not reflect any compromise in the patient's medical care. Late signature. Date of Service: Oct 16, 2024 Billing Provider: ROGELIO PUGH MD Common Visit Codes: 06597-JPB/OBS DISCH DAY >30min RICHELLE JIN RESIDENT Oct 16, 2024 16:49 ROGELIO PUGH MD Oct 17, 2024 08:16
[2024-10-17 08:06] LABS: Complement C3 134 mg/dL (82-167)
[2024-10-17 12:19] LABS: Folate (Folic Acid) 4.82 ng/mL (>5.38)
[2024-10-18 19:06] LABS: Antimyeloperoxidase (MPO) Ab <0.2 units (0.0-0.9); Antiproteinase 3 (PR-3) Ab <0.2 units (0.0-0.9)
[2024-10-18 22:07] LABS: Cytoplasmic (C-ANCA) <1:20 titer (Neg:<1:20); Perinuclear (P-ANCA) <1:20 titer (Neg:<1:20)
== END 2024-10-16 15:05 | disposition home or self-care (01) | DRG 813 ==
LOC: ER 15:47 → OVERFLOW 21:53 → WEST WING 23:51
PROVIDERS: ADMIT Student in an Organized Health Care Education/Training Program; ATTEND Emergency Medicine
DX: D69.0 Allergic purpura (principal); R65.10 Systemic inflammatory response syndrome (SIRS) of non-infectious origin without acute organ dysfunction; I77.6 Arteritis, unspecified; M06.9 Rheumatoid arthritis, unspecified; T78.49XA Other allergy, initial encounter; X58.XXXA Exposure to other specified factors, initial encounter; D64.9 Anemia, unspecified; Z88.5 Allergy status to narcotic agent; Z79.899 Other long term (current) drug therapy; Y92.89 Other specified places as the place of occurrence of the external cause
CPT/HCPCS: 36415; 71045; 80048; 80053; 82248; 82607; 82746; 82785; 83520; 83605; 83735; 84443; 85025; 85652; 86038; 86141; 86160; 86256; 87040; G0378; J3490

== ENCOUNTER 2025-02-02 06:33 | Emergency (ER) | payer OTHER ==
[~2025-02-02] VITALS: Ht 152.4 cm; Wt 78.3 kg
[~2025-02-02 06:33] MED LIST changes: -AMOX500T86 PO; +CETI10CA PO; -CLAR1TAB21 PO; +DIPH2CRE EX; -FAMO20TA10 PO; -LIDO2SOL26 MT; -LORA10CA PO; -MAA30LQ GT; +METH2.5T PO; +METH4PAK PO; -PRED10TA PO
--- NOTE | 2025-02-02 07:39 | ED.PDOC ---
History of Present Illness HPI Comments 84 y/o F, with PMHX of rheumatoid arthritis presents to the ED for CC of shortness of breath. Patient states, she has been experiencing symptoms of weakness, fatigue, decreased strength with associated shortness of breath and body-aches since 0100 today (02/02/25). Patient reports, she has experienced similar symptoms in the past with R.A flare-ups; endorses this episode to be worse. Patient comments, on recently being diagnosed with diabetes by her PCP and not being prescribed any medications. Patient relays, new onset symptoms of frequency and excessive thirst x1week. Patient currently takes Methotrexate for her R.A, denies any other medications. Patient denies fever, chills, nasal congestion, nausea, vomiting, or diarrhea. No other symptoms or modifying factors present at this time. Chief Complaint: Shortness of Breath Time Seen by MD: 07:20 Primary Care Provider: BECKA Atkins Notes: Nurses Notes, Medications, Allergies Allergies: Coded Allergies: Codeine (Verified Allergy, Unknown, 04/23/19) Home Meds Active Scripts Diphenhydramine-Zinc Acetate (DIPHENHYDRAMINE HCL/ZINC) 1 Cre Cre, 1 CRE EX Q6HP PRN for 7 Days, #1 CRE Prov:RICHELLE JIN RESIDENT 10/16/24 Cetirizine Hcl (Zyrtec Allergy) 10 Mg Cap, 10 MG PO DAILY for 7 Days, #7 CAP Prov:RICHELLE JIN RESIDENT 10/16/24 Methylprednisolone (Medrol Dosepak) 4 Mg Shar, 4 MG PO UD, #21 TAB UAD Prov:RICHELLE JIN RESIDENT 10/16/24 Reported Medications Methotrexate (Methotrexate) 2.5 Mg Tab, 1.5 MG PO, MG 10/14/24 Information Source: Patient Mode of Arrival: Ambulatory Severity: Moderate Timing: Hours Duration: Since onset Prehospital treatment: None Past Medical History PAST MEDICAL HISTORY: Arthritis Surgical History: Denies all surgeries 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 Family History Family History: Reviewed,noncontributory to illness Social History Smoker: Non-Smoker Alcohol: Denies ETOH Use Drugs: Denies Drug Use Lives In: Home Constitutional: reports: fatigue, weakness; denies: chills, diaphoresis, fever, malaise, sweats, others EENTM: denies: blurred vision, double vision, ear bleeding, ear discharge, ear drainage, ear pain, ear ringing, eye pain, eye redness, hearing loss, mouth pain, mouth swelling, nasal discharge, nose bleeding, nose congestion, nose pain, photophobia, tearing, throat pain, throat swelling, voice changes, others Respiratory: denies: cough, hemoptysis, orthopnea, SOB at rest, shortness of breath, SOB with excertion, stridor, wheezing, others Cardiovascular: reports: others (chest tightness); denies: chest pain, dizzy spells, diaphoresis, Dyspnea on exertion, edema, irregular heart beat, left arm pain, lightheadedness, palpitations, PND, syncope Gastrointestinal: denies: abdomen distended, abdominal pain, blood streaked bowels, constipated, diarrhea, dysphagia, difficulty swallowing, hematemesis, melena, nausea, poor appetite, poor fluid intake, rectal bleeding, rectal pain, vomiting, others Genitourinary: reports: frequency; denies: abnormal vagina bleeding, burning, dyspareunia, dysuria, flank pain, hematuria, incontinence, pain, , vagina discharge, urgency, others Neurological: denies: dizziness, fainting, headache, left sided numbness, left sided weakness, numbness, paresthesia, pre-existing deficit, right sided numbness, right sided weakness, seizure, speech problems, tingling, tremors, weakness, others Musculoskeletal: denies: back pain, gout, joint pain, joint swelling, muscle pain, muscle stiffness, neck pain, others Integumetry: denies: bruises, change in color, change in hair/nails, dryness, laceration, lesions, lumps, rash, wounds, others Hematologic/Lymphatic: denies: anemia, blood clots, easy bleeding, easy bruising, swollen glands, others Endocrine: reports: excessive thirst; denies: excessive hunger, excessive sweating, excessive urination, flushing, intolerance to cold, intolerance to heat, unexplained weight gain, unexplained weight loss, others Psychiatric: denies: anxiety, bipolar disorder, depression, hopeless, panic disorder, schizophrenia, sleepless, suicidal, others All Other Systems: Reviewed and Negative Physical Exam General Appearance: No Apparent Distress, Normal HEENT: Normal ENT Inspection, Pharynx Normal Neck: Full Range of Motion, Non-Tender, Normal, Normal Inspection Respiratory: Chest Non-Tender, Lungs Clear, No Accessory Muscle Use, No Respiratory Distress, Normal Breath Sounds Cardiovascular: No Edema, No Murmur, No Gallop, Normal Peripheral Pulses, Regular Rate/Rhythm Breast Exam: Deferred Gastrointestinal: No Organomegaly, Non Tender, No Pulsatile Mass, Normal Bowel Sounds, Soft Genitalia: Deferred Pelvic: Deferred Rectal: Deferred Extremities: Normal capillary refill, Normal inspection, Non-tender, No pedal edema Musculoskeletal : Apperance: Normal Neurologic: Alert, No Motor Deficits, Normal Affect, Normal Mood, No Sensory Deficits Cerebellar Function: Normal Reflexes: NOT DONE Skin: Dry, Normal Color, Warm Lymphatic: No Adenopathy Was a procedure done? Was a procedure done?: No EKG EKG : Pulse Rate (adult): 113 [place]: Normal Cardiac Rhythm: ST Block: None Hypertrophy: None ST: Normal Differential Dx Considerations may include: Uncontrolled diabetes, Hyperglycemia, Rheumatoid Arthritis Flare-up, COVID, INFLUENZA X-Ray, Labs, Meds, VS Vital Signs Date Time Temp Pulse Resp B/P (MAP) Pulse Ox O2 Delivery O2 Flow Rate FiO2 02/02/25 10:15 98.2 101 17 125/66 (85) 95 98.2 02/02/25 08:33 97.6 105 16 141/75 (97) 96 97.6 02/02/25 08:22 84 20 95 Room Air* 0 21 02/02/25 07:50 94 02/02/25 07:39 113 02/02/25 06:45 113 02/02/25 06:40 97.8 113 13 126/64 (84) 96 97.8 Lab Test 02/02/25 10:21 02/02/25 08:30 02/02/25 08:24 02/02/25 07:46 Range/Units Troponin I High Sensitivity 7 15 </=34 ng/L Influenza Type A Antigen Negative Negative Influenza Type B Antigen Negative Negative SARS-CoV-2 Antigen (Rapid) Negative NEGATIVE Urine Color Light-yellow Yellow Urine Clarity Clear Clear Urine pH 6.5 5.0-9.0 Urine Specific [place] 1.007 1.001-1.035 Urine Protein Negative Negative Urine Ketones Negative Negative Urine Blood Negative Negative /uL Urine Nitrite Negative Negative Urine Bilirubin Negative Negative Urine Urobilinogen Normal Negative mg/dL Urine Leukocyte Esterase Negative Negative /uL Urine RBC <1 0 - 4 /hpf Urine Microscopic WBC < 1 0-5 /HPF Urine Squamous Epithelial Cells Few <5 /hpf Urine Bacteria None seen None Seen /hpf Urine Glucose Normal Normal mg/dL Test 02/02/25 07:22 Range/Units White Blood Count 9.3 4.4-10.8 10^3/uL Red Blood Count 3.93 L 4.0-5.20 10^6/uL Hemoglobin 13.6 12.2-16.2 g/dL Hematocrit 39.0 36.0-46.0 % Mean Corpuscular Volume 99.3 80.0-100.0 fL Mean Corpuscular Hemoglobin 34.6 H 28.0-32.0 pg Mean Corpuscular Hemoglobin Concent 34.8 32.0-36.0 g/dL Red Cell Distribution Width 16.4 H 11.8-14.3 % Platelet Count 253 140-450 10^3/uL Mean Platelet Volume 8.0 6.9-10.8 fL Neutrophils (%) (Auto) 74.9 37.0-80.0 % Lymphocytes (%) (Auto) 15.6 10.0-50.0 % Monocytes (%) (Auto) 6.0 0.0-12.0 % Eosinophils (%) (Auto) 2.8 0.0-7.0 % Basophils (%) (Auto) 0.7 0.0-2.0 % Neutrophils # (Auto) 7.0 1.6-8.6 10 ^3/uL Lymphocytes # (Auto) 1.5 0.4-5.4 10 ^3/uL Monocytes # (Auto) 0.6 0-1.3 10 ^3/uL Eosinophils # (Auto) 0.3 0-0.8 10 ^3/uL Basophils # (Auto) 0.1 0-0.2 10 ^3/uL Nucleated Red Blood Cells 0.1 % Erythrocyte Sedimentation Rate 68 H 0-20 mm/hr Prothrombin Time 11.5 9.3-11.8 sec Prothrombin Time INR 1.09 0.9-1.15 Activated Partial Thromboplast Time 31.2 24.5-34.5 SEC D-Dimer, Quantitative 4.15 H 0.0-0.49 mg/L FEU Sodium Level 133 L 136-145 mmol/L Potassium Level 4.2 3.5-5.1 mmol/L Chloride Level 101 98-107 mmol/L Carbon Dioxide Level 21 20-31 mmol/L Anion Gap 11 5-15 Blood Urea Nitrogen 7 L 9-23 mg/dL Creatinine 0.59 0.550-1.02 mg/dL Glomerular Filtration Rate Calc 89 >90 mL/min BUN/Creatinine Ratio 11.9 10.0-20.0 Serum Glucose 121 H 74-106 mg/dL Calcium Level 9.4 8.7-10.4 mg/dL Magnesium Level 1.9 1.6-2.6 mg/dL Total Bilirubin 0.6 0.2-1.0 mg/dL Aspartate Amino Transferase (AST) 123 H 13-40 U/L Alanine Aminotransferase (ALT) 102 H 7-40 U/L Alkaline Phosphatase 90 46-116 U/L Troponin I High Sensitivity 6 </=34 ng/L B-Type Natriuretic Peptide 9.57 0-100 pg/mL Total Protein 7.2 5.7-8.2 g/dL Albumin 4.0 3.2-4.8 g/dL [place] [id number] Ph: [phone] DIAGNOSTIC IMAGING Diagnostic Imaging Report : [id number] Signed PATIENT: BREANA REESE ACCT: [id number] UNIT: [id number] : 1940 LOC: ER ROOM / BED: / AGE / SEX: 84 / F ADM STATUS: REG ER SERVICE [id number] ORDERING PHYSICIAN: ANITA FARLEY MD PROCEDURE(s): CXRP - CHEST PORTABLE REASON: sob ORDER NUMBER(s): [id number], ACCESSION NUMBER(s): [id number] EXAM: XY CHEST PORTABLE Indication: sob Technique: Single frontal view of the chest was obtained Comparison: XY CHEST XRAY 1 VIEW on DOS: 10/13/24, XY CHEST PORTABLE on DOS: 01/30/24 FINDINGS: Lines and Tubes: None Lungs: No focal consolidation. Pleura: No effusion. No pneumothorax. Cardiomediastinal contours: Unremarkable Bones: No acute osseous abnormality. IMPRESSION: No acute cardiopulmonary disease. ATED BY: ABBIE SAMUEL MD DICTATED DATE/TIME: 02/02/25809 SIGNED BY: ABBIE SAMUEL MD SIGNED DATE/TIME: 02/02/25809 CC: X-Ray, Labs, Meds, VS Comment This 54-year-old female presents to the emergency room secondary to generalized body aches. She was history of rheumatoid arthritis and was recently taken off her Humira. She was no focal complaints such as headache, vision changes, chest pain, shortness breath, nausea, vomiting or diarrhea. Denies any palliative or provocative factor. Denies modifying factors. She was pain is moderate and generalized. Workup here has benign. She was given Solu-Medrol 125 mg IM x1 prior to discharge. She was given a 5 day course of prednisone 20 mg p.o.. Follow up with Rheumatology next 1 2 days return to the ER for any new/worse/worsening symptoms. Time of 1ST Reevaluation: 07:50 Reevaluation 1ST: Unchanged Time of 2ND Reevaluation: 12:17 Patient Education/Counseling: Diagnosis, Treatment Family Education/Counseling: No Family Present Departure 1 Departure Time of Disposition: 12:18 Impression: Primary Impression: Generalized body aches Additional Impression: Rheumatoid arthritis flare Disposition: 01 HOME / SELF CARE / HOMELESS Condition: Stable Critical Care Note Critical Care Time?: No Stability Stability form required: No Heart Score Heart Score: Heart Score Response (Comments) Value History N/A 0 EKG N/A 0 Age N/A 0 Risk Factors N/A 0 Troponin N/A 0 Total 0 I personally scribed for ANITA FARLEY MD ([email or web address]) on 02/02/25 at 07:39. Electronically submitted by Ruby Garzon ([email or web address]). I personally scribed for ANITA FARLEY MD ([email or web address]) on 02/02/25 at 07:46. Electronically submitted by Ruby Garzon ([email or web address]). I personally scribed for ANITA FARLEY MD ([email or web address]) on 02/02/25 at 08:37. Electronically submitted by Ruby Garzon ([email or web address]). ANITA FARLEY MD Feb 02, 2025 07:39
[2025-02-02 07:47] LABS: Basophils # (auto) 0.1 10 ^3/uL (0-0.2); Basophils % (auto) 0.7 % (0.0-2.0); Eosinophils # (auto) 0.3 10 ^3/uL (0-0.8); Eosinophils % (auto) 2.8 % (0.0-7.0); Hemoglobin 13.6 g/dL (12.2-16.2); Lymphocytes # (auto) 1.5 10 ^3/uL (0.4-5.4); Lymphocytes % (auto) 15.6 % (10.0-50.0); Mean Corpuscular Hemoglobin 34.6 pg (28.0-32.0); Mean Corpuscular Hgb Conc. 34.8 g/dL (32.0-36.0); Mean Corpuscular Volume 99.3 fL (80.0-100.0); Monocytes # (auto) 0.6 10 ^3/uL (0-1.3); Neutrophils % (auto) 74.9 % (37.0-80.0); Nucleated Red Blood Cells % 0.1 %; Platelet Count (auto) 253 10^3/uL (140-450); Red Blood Cells 3.93 10^6/uL (4.0-5.20); Red Cell Distribution Width 16.4 % (11.8-14.3); White Blood Cell 9.3 10^3/uL (4.4-10.8)
[2025-02-02 07:58] LABS: INR 1.09 (0.9-1.15); Partial Thromboplastin Time 31.2 SEC (24.5-34.5); Prothrombin Time 11.5 sec (9.3-11.8)
[2025-02-02 08:00] LABS: Alkaline Phosphatase 90 U/L (46-116); Anion Gap 11 (5-15); BUN/Creatinine Ratio 11.9 (10.0-20.0); Calcium 9.4 mg/dL (8.7-10.4); Carbon Dioxide 21 mmol/L (20-31); Chloride 101 mmol/L (98-107); Magnesium 1.9 mg/dL (1.6-2.6); Potassium 4.2 mmol/L (3.5-5.1); Total Protein 7.2 g/dL (5.7-8.2)
[2025-02-02 08:01] LABS: Bilirubin, Total 0.6 mg/dL (0.2-1.0)
[2025-02-02 08:05] LABS: Alanine Aminotransferase 102 U/L (7-40); Aspartate Aminotransferase 123 U/L (13-40); Blood Urea Nitrogen 7 mg/dL (9-23); Glucose 121 mg/dL (74-106); Sodium 133 mmol/L (136-145)
--- NOTE | 2025-02-02 08:12 | DVH ---
EXAM: XY CHEST PORTABLE Indication: sob Technique: Single frontal view of the chest was obtained Comparison: XY CHEST XRAY 1 VIEW on DOS: 10/13/24, XY CHEST PORTABLE on DOS: 01/30/24 FINDINGS: Lines and Tubes: None Lungs: No focal consolidation. Pleura: No effusion. No pneumothorax. Cardiomediastinal contours: Unremarkable Bones: No acute osseous abnormality. IMPRESSION: No acute cardiopulmonary disease.
[2025-02-02 08:22] VITALS: PULSE 84; RESP 20; O2SAT 95
[2025-02-02 08:36] LABS: Urine Bacteria None Seen /hpf (None Seen)
[2025-02-02 08:51] LABS: Erythrocyte Sedimentation Rate 68 mm/hr (0-20)
[2025-02-02 09:15] LABS: Urine Blood Negative /uL (Negative); Urine Clarity Clear (Clear); Urine Color Light-Yellow (Yellow); Urine Protein, UAD Negative (Negative); Urine Specific Gravity 1.007 (1.001-1.035); Urine Squamous Epithelial Cell FEW /hpf (<5); Urine Urobilinogen Normal (Negative); Urine WBC < 1 /HPF (0-5); Urine pH 6.5 (5.0-9.0)
[2025-02-02 11:25] LABS: Rapid Influenza A Negative (Negative); Rapid Influenza B Negative (Negative)
[2025-02-02 11:26] LABS: COVID19 ANTIGEN SOFIA FIA NEGATIVE (NEGATIVE)
[2025-02-02] MEDS ORDERED: PRED1PAK9 PO (12:23)
[2025-02-02 12:45] VITALS: BP 141/88; PULSE 100; RESP 16; TEMP 97.7; O2SAT 95
[2025-02-02] MEDS: methylPREDNISolone SOD SUCC 125 MG/2 ML VL IM ONE (12:55)
--- NOTE | 2025-02-03 07:09 | ECG ---
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
--- NOTE | 2025-02-06 12:05 | ECG ---
[facility] Test Date: 2025-02-02 Test Time: 06:45:51 Pat Name: BREANA REESE Department: ER Room: Gender: F On Call Pharmacy Technician: BEAR : 1940 Requested By: ANITA FARLEY Order Number: [id number] Reading MD: Measurements Intervals [place] Rate: 113 P: -4 [place]: 129 QRS: -6 QRSD: 82 T: -8 QT: 332 QTc: 456 Interpretive Statements Sinus tachycardia Low voltage, precordial leads Left ventricular hypertrophy Anterior Q waves, possibly due to LVH Borderline T abnormalities, inferior leads Please click the below link to view image of tracing.
== END 2025-02-02 13:04 | disposition home or self-care (01) ==
LOC: ER 06:44
DX: M06.9 Rheumatoid arthritis, unspecified (principal); M79.10 Myalgia, unspecified site; R06.02 Shortness of breath; Z20.822 Contact with and (suspected) exposure to COVID-19; Z79.899 Other long term (current) drug therapy; Z88.5 Allergy status to narcotic agent
CPT/HCPCS: 36415; 71045; 80053; 81001; 83735; 83880; 84484; 85025; 85379; 85610; 85652; 85730; 87426; 87804; 93005; 96372; 99285; J2919

== ENCOUNTER 2025-06-03 07:28 | Inpatient (IN) | payer OTHER ==
[~2025-06-03] VITALS: Ht 152.4 cm; Wt 87.9 kg
[~2025-06-03 07:28] MED LIST changes: +PRED1PAK9 PO
--- NOTE | 2025-06-03 07:40 | ED.PDOC ---
HPI Comments This is a 84 year old female presenting to the ED with chief complaint of chest pain. Patient reports that she has been experiencing chest pain across her chest along with associated dizziness and rashes to her bilateral arms and chest since yesterday evening. Patient relays that she had an FL about 2 months ago. Patient denies any SOB, N/V, abdominal pain, numbness, weakness, or tingling. Chief Complaint: Chest Pain Time Seen by MD: 07:31 Primary Care Provider: BECKA Atkins Notes: Nurses Notes, Medications, Allergies Allergies: Coded Allergies: Codeine (Verified Allergy, Unknown, 04/23/19) Home Meds Active Scripts Prednisone (Prednisone) 10 Mg Shar, 20 MG PO BID for 5 Days, #20 TAB Prov:ANITA FARLEY MD 02/02/25 Diphenhydramine-Zinc Acetate (DIPHENHYDRAMINE HCL/ZINC) 1 Cre Cre, 1 CRE EX Q6HP PRN for 7 Days, #1 CRE Prov:RICHELLE JIN 10/16/24 Cetirizine Hcl (Zyrtec Allergy) 10 Mg Cap, 10 MG PO DAILY for 7 Days, #7 CAP Prov:RICHELLE JIN 10/16/24 Methylprednisolone (Medrol Dosepak) 4 Mg Shar, 4 MG PO UD, #21 TAB UAD Prov:RICHELLE JIN 10/16/24 Reported Medications Methotrexate (Methotrexate) 2.5 Mg Tab, 1.5 MG PO, MG 10/14/24 Information Source: Patient Mode of Arrival: Ambulatory Severity: Moderate Timing: Hours Duration: Since onset Prehospital treatment: None Location: Substernal Radiation: No Radiation Quality: Sharp Onset: At Rest Cardiac Risk Factors: HTN, Diabetes PE Risk Factors: None History of: FL Associated Signs and Symptoms: Chest Rash Past Medical History PAST MEDICAL HISTORY: Arthritis, DM, HTN, FL Past Medical History (Other): RA Surgical History: Denies all surgeries 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 Family History Family History: Reviewed,noncontributory to illness Social History Smoker: Non-Smoker Alcohol: Denies ETOH Use Drugs: Denies Drug Use Lives In: Home Constitutional: denies: chills, diaphoresis, fatigue, fever, malaise, sweats, weakness, others EENTM: denies: blurred vision, double vision, ear bleeding, ear discharge, ear drainage, ear pain, ear ringing, eye pain, eye redness, hearing loss, mouth pain, mouth swelling, nasal discharge, nose bleeding, nose congestion, nose pain, photophobia, tearing, throat pain, throat swelling, voice changes, others Respiratory: denies: cough, hemoptysis, orthopnea, SOB at rest, shortness of breath, SOB with excertion, stridor, wheezing, others Cardiovascular: reports: chest pain; denies: dizzy spells, diaphoresis, Dyspnea on exertion, edema, irregular heart beat, left arm pain, lightheadedness, palp itations, PND, syncope, others Gastrointestinal: denies: abdomen distended, abdominal pain, blood streaked bowels, constipated, diarrhea, dysphagia, difficulty swallowing, hematemesis, melena, nausea, poor appetite, poor fluid intake, rectal bleeding, rectal pain, vomiting, others Genitourinary: denies: abnormal vagina bleeding, burning, dyspareunia, dysuria, flank pain, frequency, hematuria, incontinence, pain, , vagina discharge, urgency, others Neurological: reports: dizziness; denies: fainting, headache, left sided numbness, left sided weakness, numbness, paresthesia, pre-existing deficit, right sided numbness, right sided weakness, seizure, speech problems, tingling, tremors, weakness, others Musculoskeletal: denies: back pain, gout, joint pain, joint swelling, muscle pain, muscle stiffness, neck pain, others Integumetry: reports: rash; denies: bruises, change in color, change in hair/nails, dryness, laceration, lesions, lumps, wounds, others Allergic/Immunocompromised: denies: Difficulty Healing, Frequent Infections, Hives, Itching, others Hematologic/Lymphatic: denies: anemia, blood clots, easy bleeding, easy bruising, swollen glands, others Endocrine: denies: excessive hunger, excessive sweating, excessive thirst, excessive urination, flushing, intolerance to cold, intolerance to heat, unexplained weight gain, unexplained weight loss, others Psychiatric: denies: anxiety, bipolar disorder, depression, hopeless, panic disorder, schizophrenia, sleepless, suicidal, others All Other Systems: Reviewed and Negative Physical Exam General Appearance: Moderate Distress, Normal HEENT: Normal ENT Inspection, Pharynx Normal, TMs Normal Neck: Full Range of Motion, Non-Tender, Normal, Normal Inspection Respiratory: Chest Non-Tender, Lungs Clear, No Accessory Muscle Use, No Respiratory Distress, Normal Breath Sounds Cardiovascular: No Edema, No JVD, No Murmur, No Gallop, Normal Peripheral Pulses, Regular Rate/Rhythm Breast Exam: Deferred Gastrointestinal: No Organomegaly, Non Tender, No Pulsatile Mass, Normal Bowel Sounds, Soft Genitalia: Deferred Pelvic: Deferred Rectal: Deferred Extremities: No calf tenderness, Normal capillary refill, Normal inspection, Normal range of motion, Non-tender, No pedal edema Musculoskeletal : Apperance: Normal Neurologic: Alert, professional services specialist II-XII nml as Tested, No Motor Deficits, Normal Affect, Normal Mood, No Sensory Deficits Cerebellar Function: NOT DONE Reflexes: NOT DONE Skin: Dry, Normal Color, Warm Peripheral Pulses: 3+ Radial (R), 3+ Radial (L) Lymphatic: No Adenopathy EKG EKG : Pulse Rate (adult): 95 [place]: Normal Cardiac Rhythm: NSR Block: None Hypertrophy: None ST: Normal Was a procedure done? Was a procedure done?: No CP Differential Dx Differential Diagnosis: A-fib, A-Flutter, Angina, Anxiety / Panic Attack, Atrial Dysrhythmia, Electrolyte Disorder X-Ray, Labs, Meds, VS Vital Signs Date Time Temp Pulse Resp B/P (MAP) Pulse Ox O2 Delivery O2 Flow Rate FiO2 06/03/25 07:44 98.7 102 18 138/76 (96) 97 98.7 06/03/25 07:40 95 06/03/25 07:33 95 Lab Test 06/03/25 07:40 Range/Units White Blood Count Pending Red Blood Count Pending Hemoglobin Pending Hematocrit Pending Mean Corpuscular Volume Pending Mean Corpuscular Hemoglobin Pending Mean Corpuscular Hemoglobin Concent Pending Red Cell Distribution Width Pending Platelet Count Pending Mean Platelet Volume Pending Neutrophils (%) (Auto) Pending Lymphocytes (%) (Auto) Pending Monocytes (%) (Auto) Pending Basophils (%) (Auto) Pending Neutrophils # (Auto) Pending Lymphocytes # (Auto) Pending Monocytes # (Auto) Pending Sodium Level Pending Potassium Level Pending Chloride Level Pending Carbon Dioxide Level Pending Anion Gap Pending Blood Urea Nitrogen Pending Creatinine Pending Glomerular Filtration Rate Calc Pending BUN/Creatinine Ratio Pending Serum Glucose Pending Calcium Level Pending Troponin I High Sensitivity Pending Current Medications Medications (Trade) Dose Ordered Sig/Teresa Route Start Time Stop Time Status Last Admin Sodium Chloride 1,000 ml @ 1,000 mls/hr Q1H ONCE IV 06/03/25 07:45 06/03/25 08:44 06/03/25 08:20 Methylprednisolone Sodium Succinate (Solu Medrol) 125 mg ONCE ONCE IV 06/03/25 07:45 06/03/25 07:46 DC 06/03/25 08:20 Famotidine (Pepcid Injection) 20 mg ONCE ONCE IV 06/03/25 07:45 06/03/25 07:46 DC 06/03/25 08:20 Chest XR: FINDINGS: Lines and tubes: None Cardiomediastinal silhouette: normal Pulmonary vasculature: normal Lung expansion: normal Lung airspace: normal Lung interstitium: normal Pleura: Similar left subpleural nodularity/reticulation as seen on prior CT chest. Pneumothorax: no Bones: Unremarkable Other: no IMPRESSION: No acute intrathoracic abnormality. Similar left subpleural nodularity/reticulation as seen on prior CT chest. Patient alert. Came in because of chest pain. Vitals stable. Answering questions. EKG reviewed does not show any acute changes. Saturation pristine on room air. Chest x-ray reviewed does not show any acute changes. Has rash on bilateral arms. Establish intravenous access. Was given steroid. Was given Pepcid. Reviewed her history. Explained to the patient. Continue monitoring. Images Reviewed?: Images reviewed and evaluated by me Time of 1ST Reevaluation: 08:31 Reevaluation 1ST: Unchanged Patient Education/Counseling: Diagnosis, Treatment Family Education/Counseling: No Family Present SEPSIS Sepsis Screen Physician Orders Troponin-I Hs (06/03/25 07:30) Troponin-I Hs (06/03/25 08:30) Troponin-I Hs (06/03/25 10:30) Electrocardigram (06/03/25 07:30) Electrocardigram (06/03/25 08:30) Electrocardigram (06/03/25 10:30) Complete Blood Count (06/03/25 07:40) Chest Portable (06/03/25 07:40) Urinalysis (06/03/25 07:40) Basic Metabolic Panel (06/03/25 07:40) Sodium Chloride 0.9% (06/03/25 07:45) Vital Signs Date Time Temp Pulse Resp B/P (MAP) Pulse Ox O2 Delivery O2 Flow Rate FiO2 06/03/25 07:44 98.7 102 18 138/76 (96) 97 98.7 06/03/25 07:40 95 06/03/25 07:33 95 Laboratory Tests Test 06/03/25 07:40 White Blood Count Pending Medications Medications Dose Ordered Sig/Teresa Route Start Time Stop Time Status Last Admin Dose Admin Famotidine 20 mg ONCE ONCE IV 06/03/25 07:45 06/03/25 07:46 DC 06/03/25 08:20 Methylprednisolone Sodium Succinate 125 mg ONCE ONCE IV 06/03/25 07:45 06/03/25 07:46 DC 06/03/25 08:20 Sodium Chloride 1,000 ml @ 1,000 mls/hr Q1H ONCE IV 06/03/25 07:45 06/03/25 08:44 06/03/25 08:20 Departure 1 Departure Time of Disposition: 08:22 Impression: Primary Impression: Chest pain of unknown etiology Additional Impression: Cellulitis Qualified Codes: L03.119 - Cellulitis of unspecified part of limb Disposition: ADMITTED INPATIENT Admit to: Med Surg Condition: Guarded Critical Care Note Critical Care Time?: No Stability Stability form required: No Heart Score Heart Score: Heart Score Response (Comments) Value History Highly Suspicious 2 EKG Normal 0 Age >65 2 Risk Factors >3 or Hx ASHD 2 Troponin Normal limit 0 Total 6 I personally scribed for JENNIFER MACDONALD MD ([email or web address]) on 06/03/25 at 07:40. Electronically submitted by Brian Draper ([email or web address]). I personally scribed for JENNIFER MACDONALD MD ([email or web address]) on 06/03/25 at 08:08. Electronically submitted by Brian Draper ([email or web address]). JENNIFER MACDONALD MD Jun 03, 2025 07:40
--- NOTE | 2025-06-03 08:07 | DVH ---
XY CHEST PORTABLE, HISTORY: sob COMPARISON: XY CHEST PORTABLE on DOS: 02/02/25, XY CHEST XRAY 1 VIEW on DOS: 10/13/24, XY CHEST PORTABL E on DOS: 01/30/24 XY CHEST PORTABLE on DOS: 02/02/25, XY CHEST XRAY 1 VIEW on DOS: 10/13/24, XY CHEST PORTABLE on DOS: TECHNICAL DATA: 1 view of the chest was obtained. FINDINGS: Lines and tubes: None Cardiomediastinal silhouette: normal Pulmonary vasculature: normal Lung expansion: normal Lung airspace: normal Lung interstitium: normal Pleura: Similar left subpleural nodularity/reticulation as seen on prior CT chest. Pneumothorax: no Bones: Unremarkable Other: no IMPRESSION: No acute intrathoracic abnormality. Similar left subpleural nodularity/reticulation as seen on prior CT chest.
[2025-06-03] MEDS: methylPREDNISolone SOD SUCC 125 MG/2 ML VL IV ONE (08:20)
[2025-06-03] MEDS: SODIUM CHLORIDE 0.9% 1,000 ML IV ONE (08:20)
[2025-06-03] MEDS: FAMOTIDINE (10MG/ML) 2ML VL IV ONE (08:20)
[2025-06-03 08:26] VITALS: RESP 16; O2SAT 98
[2025-06-03 08:35] LABS: Nucleated Red Blood Cells % 0.0 %
[2025-06-03 08:37] LABS: Hematocrit 40.7 % (36.0-46.0); Hemoglobin 14.1 g/dL (12.2-16.2); Mean Corpuscular Hemoglobin 35.6 pg (28.0-32.0); Mean Corpuscular Volume 103.1 fL (80.0-100.0)
[2025-06-03] MEDS: cefTRIAXone 1GM/50ML D5W 50 ML IV ONE (08:37)
[2025-06-03 08:45] LABS: Chloride 103 mmol/L (98-107); Potassium 4.1 mmol/L (3.5-5.1); Sodium 137 mmol/L (136-145)
[2025-06-03 08:46] LABS: Anion Gap 13 (5-15); Carbon Dioxide 21 mmol/L (20-31)
[2025-06-03 08:47] LABS: Calcium 9.5 mg/dL (8.7-10.4)
[2025-06-03 08:52] LABS: BUN/Creatinine Ratio 14.5 (10.0-20.0); Blood Urea Nitrogen 11 mg/dL (9-23)
[2025-06-03 09:03] LABS: Glucose 132 mg/dL (74-106)
[2025-06-03] MEDS: CLINDAMYCIN 300MG IV 50 ML IV ONE (09:13)
[2025-06-03] MEDS ORDERED: ONDANSETRON HCL 4 MG/2 ML VIAL IV PRN (10:45)
[2025-06-03] MEDS ORDERED: NITROGLYCERIN 0.4 MG SL TAB SL PRN ×2 (10:45)
[2025-06-03] MEDS ORDERED: DEXTROSE (50%) 50ML SYRG IV PRN (10:45)
--- NOTE | 2025-06-03 11:08 | DVHHP2 ---
History of Present Illness Reason for Visit: chest pain History of Present Illness 84-year-old female with past medical history of diabetes mellitus, hypertension, osteoarthritis, and rheumatoid arthritis, and surgical history of appendectomy, presents with acute chest pain that began last night. The pain is described as stabbing and sharp, located across the midline and radiating to the epigastric area, and is worsened when sitting. She denies similar symptoms to her prior myocardial infarction. She reports mild shortness of breath but denies cough, fever, or leg swelling. 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 Quezada, about a month ago and underwent a Lexiscan stress test on April 25, which was unremarkable, as well as a carotid ultrasound on April 17, 2025, also reportedly unremarkable. In addition to the chest pain, she reports a rash or swelling of her upper arms, abdomen, and inner thighs, raising concern for an allergic reaction, for which she received solumedrol in the ED with some symptomatic relief. Given her cardiac history and atypical presentation, she will be admitted for further workup of chest pain and possible allergic reaction. Past Medical History See HPI above Past Surgical History See HPI above Family History Reviewed, non-contributory to the management of this case. Past Social History The patient lives at home, denies smoking, alcohol or illicit drugs abuse. Review of Systems Constitutional: No: Fever, Chills, Sweats, Weakness, Malaise, Other Eyes: No: Pain, Vision change, Conjunctivae inflammation, Eyelid inflammation, Other, Redness ENT: No: Ear pain, Ear discharge, Nose pain, Nose discharge, Nose congestion, Mouth pain, Mouth swelling, Throat pain, Throat swelling, Other Respiratory: No: Cough, Dry, Shortness of breath, SOB with excertion, Wheezing, Hemoptysis, Pleuritic Pain, Sputum, Wheezing, Other Cardiovascular: Chest Pain; No: Palpitations, Orthopnea, Paroxysmal Noc. Dyspnea, Edema, Lt Headedness, Other Gastrointestinal: No: Nausea, Vomiting, Abdominal Pain, Diarrhea, Constipation, Melena, Hematochezia, Other Genitourinary: No Dysuria, No Frequency, No Incontinence, No Hematuria, No Retention, No Other Musculoskeletal: No: other, neck pain, shoulder pain, arm pain, back pain, hand pain, leg pain, foot pain Skin: No: Rash, Lesions, Jaundice, Bruising, Other Neurological: No: Weakness, Numbness, Incoordination, Change in speech, Confusion, Seizures, Other Allergies: Coded Allergies: Codeine (Verified Allergy, Unknown, 04/23/19) Medications Current Medications Medications Dose Ordered Sig/Teresa Route Start Time Stop Time Status Last Admin Dose Admin Methotrexate 1.5 mg DAILY PO 06/04/25 10:00 UNV Aspirin 81 mg DAILY PO 06/04/25 10:00 UNV Docusate Sodium 100 mg DAILY PO 06/04/25 10:00 UNV Nitroglycerin 0.4 mg Q5MINP PRN SL 06/03/25 10:45 UNV Ondansetron HCl 4 mg Q4HP PRN IV 06/03/25 10:45 UNV Nitroglycerin 0.4 mg Q5MINP PRN SL 06/03/25 10:45 UNV Diagnostic Test (Pha) 1 strip ACHS 06/03/25 11:30 UNV Insulin Human Regular ACHS SC 06/03/25 11:30 UNV Dextrose 50 ml UD PRN IV 06/03/25 10:45 UNV Diphenhydramine HCl 25 mg Q6HP PRN IV 06/03/25 10:45 UNV Prednisone 60 mg DAILY PO 06/04/25 10:00 UNV Pantoprazole Sodium 40 mg DAILY IV 06/04/25 10:00 UNV Exam Vital Signs Vital Signs Date Time Temp Pulse Resp B/P (MAP) Pulse Ox O2 Delivery O2 Flow Rate FiO2 06/03/25 08:26 16 98 Room Air* 0 21 06/03/25 08:25 98.7 100 139/89 (106) 98.7 General Appearance: Alert, Oriented X3, Cooperative, No acute distress HEENT: Atraumatic, PERRLA, EOMI, Mucous membr. moist/pink Respiratory: Clear to auscultation, Normal air movement Cardiovascular: Regular rate, Normal S1, Normal S2, No murmurs Abdominal: Normal bowel sounds, Soft, No tenderness, No hepatospenomegaly, No masses Extremities: No clubbing, No cyanosis, No edema, Normal pulses, No tenderness/swelling Skin: No rashes, No breakdown, No significant lesion Neuro: Normal gait, Normal speech, Strength at 5/5 X4 ext, Normal tone, Sensation intact Psych/Mental Status: Mental status NL, Mood NL Labs/Xrays Chest x-ray unremarkable I reviewed labs, imaging CT scan abdomen pelvis, EKG and all diagnostic studies on this patient from ED records and the medical chart Labs Test 06/03/25 11:03 06/03/25 07:40 Range/Units White Blood Count 8.1 4.4-10.8 10^3/uL Red Blood Count 3.95 L 4.0-5.20 10^6/uL Hemoglobin 14.1 12.2-16.2 g/dL Hematocrit 40.7 36.0-46.0 % Mean Corpuscular Volume 103.1 H 80.0-100.0 fL Mean Corpuscular Hemoglobin 35.6 H 28.0-32.0 pg Mean Corpuscular Hemoglobin Concent 34.6 32.0-36.0 g/dL Red Cell Distribution Width 17.9 H 11.8-14.3 % Platelet Count 228 140-450 10^3/uL Mean Platelet Volume 9.2 6.9-10.8 fL Neutrophils (%) (Auto) 71.1 37.0-80.0 % Lymphocytes (%) (Auto) 21.4 10.0-50.0 % Monocytes (%) (Auto) 7.0 0.0-12.0 % Eosinophils (%) (Auto) 0.4 0.0-7.0 % Basophils (%) (Auto) 0.1 0.0-2.0 % Neutrophils # (Auto) 5.8 1.6-8.6 10 ^3/uL Lymphocytes # (Auto) 1.7 0.4-5.4 10 ^3/uL Monocytes # (Auto) 0.6 0-1.3 10 ^3/uL Eosinophils # (Auto) 0 0-0.8 10 ^3/uL Basophils # (Auto) 0 0-0.2 10 ^3/uL Nucleated Red Blood Cells 0.0 % Sodium Level 137 136-145 mmol/L Potassium Level 4.1 3.5-5.1 mmol/L Chloride Level 103 98-107 mmol/L Carbon Dioxide Level 21 20-31 mmol/L Anion Gap 13 5-15 Blood Urea Nitrogen 11 9-23 mg/dL Creatinine 0.76 0.550-1.02 mg/dL Glomerular Filtration Rate Calc 78 >90 mL/min BUN/Creatinine Ratio 14.5 10.0-20.0 Serum Glucose 132 H 74-106 mg/dL Calcium Level 9.5 8.7-10.4 mg/dL Magnesium Level 1.8 1.6-2.6 mg/dL SEPSIS Sepsis Screen Date sepsis recognized/suspect: Jun 03, 2025 Time Sepsis recognized/suspect: 729 Recent Procedure: No On Antibiotic Therapy: No Respiratory Rate >20: No Heart Rate >90: Yes Temp<36 C (96.8 F) or >38.3 C: No SBP <90 or MAP <65 mmHG: No New Acute Mental Status Change: No Is the patient on CPAP, BIPAP,: No Physician Orders Troponin-I Hs (06/03/25 10:30) Electrocardigram (06/03/25 07:30) Electrocardigram (06/03/25 08:30) Electrocardigram (06/03/25 10:30) Chest Portable (06/03/25 07:40) Urinalysis (06/03/25 07:40) Methotrexate (Methotrexate) (06/04/25 10:00) Admit (06/03/25 10:43) Code Status (06/03/25 10:43) Vital Signs .PER UNIT PROTOCOL (06/03/25 10:43) Recreation Teacher (06/03/25 10:43) May Elevate Hob ____ Degrees (06/03/25 10:43) Cardiac Diet-2gna,Lofat,Lochol (06/03/25 Lunch) Aspirin Tablet (06/04/25 10:00) Docusate Sodium Capsule (Colace Capsule) (06/04/25 10:00) Pulse Oximeter Check (06/03/25 10:43) Echo 2d Mode Cardiac Dop (06/03/25 10:43) Nitroglycerin Sublingual (Ntrostat Subli (06/03/25 10:45) Ondansetron Hcl (Zofran) (06/03/25 10:45) Atorvastatin (Lipitor) (06/03/25 10:45) Cardiac Rehabilitation - Outpa (06/03/25 ) Nitroglycerin Sublingual (Ntrostat Subli (06/03/25 10:45) Stat Ekg For Chest Pain (06/03/25 10:43) Notify Md Of Changes From Base (06/03/25 10:43) Senior Radiation Therapist For 24 Hours (06/03/25 10:43) Emergency Dysrhythmia Protocol (06/03/25 10:43) Rhythm Strips Once Every Shift (06/03/25 10:43) Oxygen By Nasal Cannula (06/03/25 10:43) Troponin-I Hs (06/03/25 13:43) Glucose Blood (Accu-Chek Comfort Curve T (06/03/25 11:30) Insulin R (Human) (Insulin R) (06/03/25 11:30) Dextrose 50% Syringe (06/03/25 10:45) Diphenhdramine Injection (Benadryl Injec (06/03/25 10:45) Prednisone Tablet (06/04/25 10:00) Pantoprazole (Protonix) (06/03/25 10:45) Pantoprazole (Protonix) (06/04/25 10:00) * Cardiology Consult (06/03/25 10:43) Vital Signs Date Time Temp Pulse Resp B/P (MAP) Pulse Ox O2 Delivery O2 Flow Rate FiO2 06/03/25 08:26 16 98 Room Air* 0 21 06/03/25 08:25 98.7 100 20 139/89 (106) 96 98.7 06/03/25 08:25 100 20 96 Room Air 06/03/25 07:44 98.7 102 18 138/76 (96) 97 98.7 06/03/25 07:40 95 06/03/25 07:33 95 Laboratory Tests Test 06/03/25 07:40 White Blood Count 8.1 10^3/uL (4.4-10.8) Medications Medications Dose Ordered Sig/Teresa Route Start Time Stop Time Status Last Admin Dose Admin Ceftriaxone Sodium 50 ml @ 100 mls/hr ONCE ONCE IV 06/03/25 08:30 06/03/25 08:59 DC 06/03/25 08:37 100 MLS/HR Clindamycin Phosphate 50 ml @ 50 mls/hr ONCE ONCE IV 06/03/25 08:30 06/03/25 09:29 DC 06/03/25 09:13 50 MLS/HR Famotidine 20 mg ONCE ONCE IV 06/03/25 07:45 06/03/25 07:46 DC 06/03/25 08:20 20 MG Methylprednisolone Sodium Succinate 125 mg ONCE ONCE IV 06/03/25 07:45 06/03/25 07:46 DC 06/03/25 08:20 125 MG Sodium Chloride 1,000 ml @ 1,000 mls/hr Q1H ONCE IV 06/03/25 07:45 06/03/25 08:44 DC 06/03/25 08:20 1,000 MLS/HR Assessment/Plan Assessment/Plan 84 yr old female with Chest pain with history of MN admit for cardiac workup and evaluation of possible allergic reaction. acute Chest pain r/o acs History of myocardial infarction Atypical, stabbing, midline radiating to epigastric region Not consistent with prior MN per patient Troponins 3, EKG serial monitoring, chest X-ray Continue telemetry monitoring Cardiology consult (Dr. butler) due to history of MN and recent stress testing Consider echocardiogram if new findings Lexiscan stress test on 04/25/2025 reportedly normal Continue to monitor for ischemic changes Resume home cardiac medications as appropriate acute allergic reaction Patient reports rash in arms, stomach, inner thighs Received Solu-Medrol in ED with improvement Monitor for progression of rash/swelling ordered prednisone and bendaryl prn for now can consider topical treatment if rash develops Evaluate for any new medications, exposures, or recent food intake chronic problems Diabetes mellitus type 2 Monitor blood glucose during admission/sliding scale insulin Hypertension Monitor vitals and manage as needed Continue home antihypertensives Rheumatoid arthritis Osteoarthritis History of myocardial infarction FEN / PPx Fluids: IV hl; otherwise PO encouraged Electrolytes: Monitor BMP daily Nutrition: Diabetic diet DVT Prophylaxis: SCDs or lovenox GI Prophylaxis: PPI if using steroids Disposition Admit to medicine for evaluation of chest pain and possible allergic reaction. Cardiology consult for monitoring given history of MN. Continue telemetry, cardiac enzymes, supportive care, and monitor for recurrence or progression of allergic symptoms. Plan discussed with: Patient My Orders Orders - ARNAV ERWIN DNP Procedure Category Date Status Time Methotrexate PHA 06/04/25 Logged (Methotrexate) 10:00 Admit ADMIT 06/03/25 Transmitted 10:43 Code Status CODE 06/03/25 Transmitted 10:43 Vital Signs ANDREW 06/03/25 In Process 10:43 Recreation Teacher ANDREW 06/03/25 In Process 10:43 May Elevate Hob ____ ANDREW 06/03/25 In Process Degrees 10:43 Cardiac DIET 06/03/25 Transmitted Diet-2gna,Lofat,Lochol Lunch Aspirin Tablet PHA 06/04/25 Logged 10:00 Docusate Sodium PHA 06/04/25 Logged Capsule (Colace 10:00 Pulse Oximeter Check RT 06/03/25 Logged 10:43 Echo 2d Mode Cardiac US 06/03/25 Logged DOP 10:43 Nitroglycerin PHA 06/03/25 Logged Sublingual (Ntrostat 10:45 Ondansetron Hcl PHA 06/03/25 Logged (Zofran) 10:45 Atorvastatin (Lipitor) PHA 06/03/25 Logged 10:45 Cardiac ANDREW 06/03/25 In Process Rehabilitation - Outpa Nitroglycerin PHA 06/03/25 Logged Sublingual (Ntrostat 10:45 Stat Ekg For Chest ANDREW 06/03/25 In Process Pain 10:43 Notify Md Of Changes ANDREW 06/03/25 In Process From Base 10:43 Senior Radiation Therapist For [facility] 06/03/25 In Process 24 Hours 10:43 Emergency Dysrhythmia ANDREW 06/03/25 In Process Protocol 10:43 Rhythm Strips Once [facility] 06/03/25 In Process Every Shift 10:43 Oxygen By Nasal RT 06/03/25 Transmitted Cannula 10:43 Troponin-I Hs LAB 06/03/25 Logged 13:43 Glucose Blood PHA 06/03/25 Logged (Accu-Chek Comfort 11:30 Insulin R (Human) PHA 06/03/25 Logged (Insulin R) 11:30 Dextrose 50% Syringe PHA 06/03/25 Logged 10:45 Diphenhdramine PHA 06/03/25 Logged Injection (Benadryl 10:45 Prednisone Tablet PHA 06/04/25 Logged 10:00 Pantoprazole PHA 06/03/25 Logged (Protonix) 10:45 Pantoprazole PHA 06/04/25 Logged (Protonix) 10:00 * Cardiology Consult CONS 06/03/25 Transmitted 10:43 Date of Service: Jun 03, 2025 Billing Provider: ARNAV ERWIN DNP Common Visit Codes: 92752-[id number] INP/OBS CARE (HIGH) ARNAV ERWIN DNP Jun 03, 2025 11:08
[2025-06-03] MEDS: METHOTREXATE 2.5 MG TAB PO SCH (11:19)
[2025-06-03] MEDS: PANTOPRAZOLE 40 MG/10 ML VIAL INJ IV ONE (11:38)
[2025-06-03] MEDS: ATORVASTATIN 20 MG TAB PO ONE (11:38)
[2025-06-03] MEDS: ACCU-CHEK COMFORT CURVE STRIP VI SCH (11:51)
[2025-06-03] MEDS: InsuLIN REG 1unit/0.01ml Soln (100units/ml) SC SCH (11:51)
[2025-06-03 13:07] VITALS: BP 127/67; PULSE 78; RESP 17; TEMP 97.1; O2SAT 98
[2025-06-03] MEDS ORDERED: FAMO20TA10 PO (16:15)
[2025-06-03] MEDS ORDERED: ATOR10TA52 PO (16:15)
[2025-06-03] MEDS ORDERED: METH2.5T PO (16:15)
[2025-06-03] MEDS ORDERED: FOLITAB22 PO (16:15)
[2025-06-03] MEDS ORDERED: CHOL20007 OR (16:15)
[2025-06-03 17:00] VITALS: BP 110/58; PULSE 76; RESP 17; TEMP 97.8; O2SAT 95
[2025-06-03 20:00] VITALS: PULSE 96
[2025-06-03 21:00] VITALS: BP 110/59; PULSE 79; RESP 16; TEMP 97.3; O2SAT 95
[2025-06-04] VITALS (8 sets, daily range): BP systolic 96–119; BP diastolic 51–76; PULSE 54–71; RESP 12–18; TEMP 97.3–97.8; O2SAT 94–97
[2025-06-04] MEDS: diphenhdrAMINE HCL 50 MG/1 ML VL IV PRN (01:20)
[2025-06-04 01:37] LABS: Urine Protein, UAD Negative (Negative)
--- NOTE | 2025-06-04 08:47 | DVHSR ---
APPROVED REPORT EXAM: Two-dimensional and M-mode echocardiogram with Doppler and color Doppler. Blood Pressure: 139/89 mmHg INDICATION Chest Pain RISK FACTORS Height: 5'0", Weight: 161 DIMENSIONS LVDd4.2 (3.8-5.7cm)LA (2D)3.0 (1.9-4.0cm)Aortic Root2.6 (2.0-3.7cm) LVDs3.0 (2.5-4.0cm)LA (MM) (1.9-4.0cm)Aortic Cusp Exc1.6 (1.5-2.0cm) EF (%) 60.0 (55-70%)Rt. Atrium2.9 (1.9-4.0cm)Asc. Aorta cm IVSd1.0 (0.7-1.1cm)RV (D) (1.8-2.4cm) PWd0.9 (0.7-1.1cm) Mitral Valve MitralMitral Stenosis E wave0.83m/sMV Mean GR.mmHg A wave1.15m/sMV Peak GR.mmHg E/A ratio0.72D MVAcm2 DECEL [id number] 1/2 Timems Aortic Valve Aortic ValveAortic Stenosis V11.33m/Kemi Mean GR.6mmHg V21.65m/Kemi Peak GR.11mmHg LVOT Diameter1.8 (1.8-2.4cm)Doppler AVA2.05cm2 Pulmonic Valve V20.92m/s Tricuspid Valve TR Velocity2.64m/s [id number] Conclusion Left ventricle: Left ventricle is normal sized with normal systolic function. LVEF was around 65%. Diastolic function was considered normal for age. There was no wall motion abnormality. Right ventricle was normal sized with normal systolic function. Both atria were normal sized. Aortic valve was trileaflet. There was no aortic insufficiency/stenosis. There was trace mitral/tri cuspid regurgitation. There was no pulmonary valve insufficiency. Right ventricular systolic pressure was assessed at 31 mm Hg which is considered normal. There was n o pericardial effusion.
[2025-06-04] MEDS: DOCUSATE SOD 100 MG CAP PO SCH (09:19)
[2025-06-04] MEDS: PANTOPRAZOLE 40 MG/10 ML VIAL INJ IV SCH (09:19)
[2025-06-04] MEDS: predniSONE 20 MG TAB PO SCH (09:19)
--- NOTE | 2025-06-04 09:32 | DVHINCON2 ---
Date of service: Jun 04, 2025 History of Present Illness HPI Patient is a 84-year-old female who presented to the hospital with dizziness/generalized weakness rash to bilateral arms and atypical chest pains. Cardiology was involved for cardiac aspects of care. Patient has recently started to come to our office as outpatient. She actually had nuclear stress test in April 18, 2025 which revealed normal perfusion. The echocardiogram of April 2025 also revealed preserved left ventricular systolic function and no specific valvular disease. She is known to have rheumatoid arthritis and is on methotrexate. Follows with energy systems engineer as outside. She also has a history of abdominal tumor/cancer around 40 years ago for which received surgery and also chemotherapy for a while. Denies loss of consciousness. Denies palpitations. Home Meds Active Scripts Prednisone (Prednisone) 10 Mg Shar, 20 MG PO BID for 5 Days, #20 TAB Prov:ANITA FARLEY MD 02/02/25 Diphenhydramine-Zinc Acetate (DIPHENHYDRAMINE HCL/ZINC) 1 Cre Cre, 1 CRE EX Q6HP PRN for 7 Days, #1 CRE Prov:RICHELLE JIN RESIDENT 10/16/24 Cetirizine Hcl (Zyrtec Allergy) 10 Mg Cap, 10 MG PO DAILY for 7 Days, #7 CAP Prov:RICHELLE JIN RESIDENT 10/16/24 Methylprednisolone (Medrol Dosepak) 4 Mg Shar, 4 MG PO UD, #21 TAB UAD Prov:RICHELLE JIN RESIDENT 10/16/24 Reported Medications Folic Wdqr-Eklsdibfeu-Tqrsgosi (Folbic) Tab, 1 TAB PO DAILY, #90 TAB 1 Refill 06/03/25 Famotidine (PEPCID TABLET) 20 Mg Tb, 1 TAB PO BID, #60 TAB 5 Refills 06/03/25 Atorvastatin Calcium (ATORVASTATIN CALCIUM) 10 Mg Tab, 1 TAB PO DAILY, #30 TAB 5 Refills 06/03/25 Methotrexate (Methotrexate) 2.5 Mg Tab, 6 TAB PO QWEEKLY, #24 TAB 1 Refill 06/03/25 Cholecalciferol (VITAMIN D3) 2,000 Unit Tab, 5000 UNIT OR DAILY, TAB 06/03/25 Methotrexate (Methotrexate) 2.5 Mg Tab, 1.5 MG PO, MG 10/14/24 Past Medical History Others Past medical history includes prediabetes, rheumatoid arthritis (previously on Humira and now days on methotrexate), hyperlipidemia, old history of abdominal tumor/malignancy for which had cancer and chemotherapy over 40 years ago, hypertension, DJD, old history of knee replacement/hysterectomy/oophorectomy/appendectomy. Patient Family History: Diabetes mellitus G8 MOTHER G8 BROTHER G8 BROTHER FH: glaucoma G8 MOTHER FH: stomach cancer G8 SISTER Smoker: No Hx (Negative) Alocohol: None Drugs: None Review of Systems Constitutional: Weakness Ears, Nose, & Throat: No symptom reported Pulmonary/Respiratory: Dyspnea Cardiovascular: Chest Pain All Other Systems Fourteen point review of system was performed. Relevant findings as per above and as per HPI. Otherwise negative. H&P Exam Vital Signs Vital Signs Date Time Temp Pulse Resp B/P (MAP) Pulse Ox O2 Delivery O2 Flow Rate FiO2 06/04/25 05:00 97.3 65 12 96/51 (66) 97 97.3 06/03/25 20:00 Room Air* 0 21 General Appeara: Well developed Head Exam: Normal inspection Eye Exam: bilateral eye PERRL Mouth: Normal Inspection Pulmonary/Respiratory: Lungs clear Cardiovascular/Chest: Regular rate Peripheral Pulses: 2+ carotid (R), 2+ carotid (L), 2+ femoral (R), 2+ femoral (L), 2+ dorsalis pedis (R), 2+ dorsalis pedis (L), 2+ Radial (R), 2+ Radial (L) Abdominal Exam: Normal bowel sounds, Soft, No hepatospenomegaly Neuro/Mental St: Alert, Oriented Appearance: Appropriate appearance Eye contact/ Speech: Cooperative Labs/Xrays Labs Test 06/04/25 06:06 06/04/25 01:27 06/03/25 14:00 06/03/25 07:40 Range/Units POC Glucose 154 H 70-106 mg/dl Urine Color Light-yellow Yellow Urine Clarity Clear Clear Urine pH 6.5 5.0-9.0 Urine Specific [place] 1.012 1.001-1.035 Urine Protein Negative Negative Urine Ketones Negative Negative Urine Blood Negative Negative /uL Urine Nitrite Negative Negative Urine Bilirubin Negative Negative Urine Urobilinogen 2 H Negative mg/dL Urine Leukocyte Esterase Negative Negative /uL Urine RBC 1 0 - 4 /hpf Urine Microscopic WBC 1 0-5 /HPF Urine Squamous Epithelial Cells Few <5 /hpf Urine Bacteria None seen None Seen /hpf Urine Glucose Normal Normal mg/dL Troponin I High Sensitivity 5 </=34 ng/L White Blood Count 8.1 4.4-10.8 10^3/uL Red Blood Count 3.95 L 4.0-5.20 10^6/uL Hemoglobin 14.1 12.2-16.2 g/dL Hematocrit 40.7 36.0-46.0 % Mean Corpuscular Volume 103.1 H 80.0-100.0 fL Mean Corpuscular Hemoglobin 35.6 H 28.0-32.0 pg Mean Corpuscular Hemoglobin Concent 34.6 32.0-36.0 g/dL Red Cell Distribution Width 17.9 H 11.8-14.3 % Platelet Count 228 140-450 10^3/uL Mean Platelet Volume 9.2 6.9-10.8 fL Neutrophils (%) (Auto) 71.1 37.0-80.0 % Lymphocytes (%) (Auto) 21.4 10.0-50.0 % Monocytes (%) (Auto) 7.0 0.0-12.0 % Eosinophils (%) (Auto) 0.4 0.0-7.0 % Basophils (%) (Auto) 0.1 0.0-2.0 % Neutrophils # (Auto) 5.8 1.6-8.6 10 ^3/uL Lymphocytes # (Auto) 1.7 0.4-5.4 10 ^3/uL Monocytes # (Auto) 0.6 0-1.3 10 ^3/uL Eosinophils # (Auto) 0 0-0.8 10 ^3/uL Basophils # (Auto) 0 0-0.2 10 ^3/uL Nucleated Red Blood Cells 0.0 % Sodium Level 137 136-145 mmol/L Potassium Level 4.1 3.5-5.1 mmol/L Chloride Level 103 98-107 mmol/L Carbon Dioxide Level 21 20-31 mmol/L Anion Gap 13 5-15 Blood Urea Nitrogen 11 9-23 mg/dL Creatinine 0.76 0.550-1.02 mg/dL Glomerular Filtration Rate Calc 78 >90 mL/min BUN/Creatinine Ratio 14.5 10.0-20.0 Serum Glucose 132 H 74-106 mg/dL Calcium Level 9.5 8.7-10.4 mg/dL Magnesium Level 1.8 1.6-2.6 mg/dL Assessment/Plan Plan Patient is a 84-year-old female who presented to the hospital with dizziness/generalized weakness rash to bilateral arms and atypical chest pains. Cardiology was involved for cardiac aspects of care. Patient has recently started to come to our office as outpatient. She actually had nuclear stress test in April 18, 2025 which revealed normal perfusion. The echocardiogram of April 2025 also revealed preserved left ventricular systolic function and no specific valvular disease. She is known to have rheumatoid arthritis and is on methotrexate. Follows with energy systems engineer as outside. She also has a history of abdominal tumor/cancer around 40 years ago for which received surgery and also chemotherapy for a while. Denies loss of consciousness. Denies palpitations. Not in acute distress. No JVD. Mucosa is pink and wet. No goiter. No carotid bruit. Lungs are clear to auscultation. Not using accessory muscles of breathing. Cardiac: Regular, no thrill/gallop. Abdomen is soft. Bowel sound is positive. There is no hepatomegaly. There is no abdominal mass. Extremities do not reveal edema. Dorsalis pedis is 2+ bilateral. There was no gross lateralized neurologic deficit. Past medical history includes prediabetes, rheumatoid arthritis (previously on Humira and now days on methotrexate), hyperlipidemia, old history of abdominal tumor/malignancy for which had cancer and chemotherapy over 40 years ago, hypertension, DJD, old history of knee replacement/hysterectomy/oophorectomy/appendectomy. Nuclear stress test of April 18, 2025 revealed normal perfusion and ejection fraction of 76% Echocardiogram of April 20, 2025 (performed in the office) revealed preserved left ventricular systolic function and no specific valvular disease. Creatinine: 0.76 Potassium: 4.1 Troponin (high sensitive): 5 - 6 - 5 - 5 Chest x-ray revealed: IMPRESSION: No acute intrathoracic abnormality. EKG revealed sinus rhythm with no ST-T changes Tele reveals sinus rhythm Echocardiogram revealed: Left ventricle: Left ventricle is normal sized with normal systolic function. LVEF was around 65%. Diastolic function was considered normal for age. There was no wall motion abnormality. Right ventricle was normal sized with normal systolic function. Both atria were normal sized. Aortic valve was trileaflet. There was no aortic insufficiency/stenosis. There was trace mitral/tricuspid regurgitation. There was no pulmonary valve insufficiency. Right ventricular systolic pressure was assessed at 31 mm Hg which is considered normal. There was no pericardial effusion. Patient is a 84-year-old female who presented with dizziness/generalized weakness and atypical chest pains. She feels that she had some rash to bilateral arms also. Serial high sensitive troponin has been negative. EKG has been nonrevealing. Echocardiogram reveals good systolic function. Diastolic function was normal and there was no wall motion abnormalities. Recent nuclear stress test (May 03) was also normal. Acute coronary syndrome is less likely I am not considered at this point. Patient does have history of rheumatoid arthritis. Usually follows with energy systems engineer Atypical chest discomfort Dizziness Prediabetes Rheumatoid arthritis History of abdominal malignancy, status post surgery/chemotherapy Hypertension Hyperlipidemia Cardiac suggestion for management: Managed on telemetry Follow-up electrolytes and kidney function tests and correct abnormalities. Keep potassium above 4 and magnesium above 2 Consider carotid sono Consider brain imaging Consider Neurology evaluation Consider checking for thyroid function tests and also liver function tests Long-term monitor can be arranged as outpatient Further evaluation and management depends on the above and clinical course Thank you for consultation A total of 75 minutes was spent reviewing the patient record, examining the patient, making a diagnostic and therapeutic plan, discussing this plan with medical personnel, following up on diagnostic studies and following the patient for clinical stability excluding any and all procedures. At least 50% of this time was spent in direct, [id number] contact. Thank you for allowing me to participate in this patient's care. Further recommendations will depend on patient's clinical course. Please do not hesitate to contact me if you have any questions or concerns. This medical document was created using electronic medical record system with [employer] computerized dictation system. Although this document has been carefully reviewed, there may still be some phonetic and typographical errors. These areas are purely typographical due to the imperfection of the software programs, and do not reflect any compromise in the patient's medical care. Plan discussed with: Patient, Other (nurse) GINNA CASTRO MD Jun 04, 2025 09:32
[2025-06-04 12:24] LABS: Alanine Aminotransferase 26 U/L (7-40); Albumin 3.4 g/dL (3.2-4.8); Alkaline Phosphatase 85 U/L (46-116); Anion Gap 10 (5-15); BUN/Creatinine Ratio 20.9 (10.0-20.0); Blood Urea Nitrogen 14 mg/dL (9-23); Calcium 9.2 mg/dL (8.7-10.4); Carbon Dioxide 22 mmol/L (20-31); Chloride 105 mmol/L (98-107); Potassium 4.1 mmol/L (3.5-5.1); Sodium 137 mmol/L (136-145); Total Protein 6.2 g/dL (5.7-8.2)
[2025-06-04 12:25] LABS: Bilirubin, Total 0.3 mg/dL (0.2-1.0)
[2025-06-04 12:26] LABS: Glucose 107 mg/dL (74-106)
--- NOTE | 2025-06-04 23:41 | DVHPN2 ---
Subjective The patient is seen and examined at bedside. Still complain of chest pain. Reviewed: Care Plan, H&P, Labs, Medications, Previous Orders, Radiology Changes from previous H/P or p: No Changes Eyes: No Pain, No Vision change, No Conjunctivae inflammation, No Eyelid inflammation, No Other, No Redness ENT: No Ear pain, No Ear discharge, No Nose pain, No Nose discharge, No Nose congestion, No Mouth pain, No Mouth swelling, No Throat pain, No Throat swelling, No Other Cardiovascular: Chest Pain; No Palpitations, No Orthopnea, No Paroxysmal Noc. Dyspnea, No Edema, No Lt Headedness, No Other Respiratory: No Cough, No Dry, No Shortness of breath, No SOB with excertion, No Wheezing, No Hemoptysis, No Pleuritic Pain, No Sputum, No Other Gastrointestinal: No Nausea, No Vomiting, No Abdominal Pain, No Diarrhea, No Constipation, No Melena, No Hematochezia, No Other Genitourinary: No Dysuria, No Frequency, No Incontinence, No Hematuria, No Retention, No Other Musculoskeletal: No other, No neck pain, No shoulder pain, No arm pain, No back pain, No hand pain, No leg pain, No foot pain Skin: No Rash, No Lesions, No Jaundice, No Bruising, No Other Objective Vitals Vital Signs Date Time Temp Pulse Resp B/P (MAP) Pulse Ox O2 Delivery O2 Flow Rate FiO2 06/04/25 21:00 97.6 71 17 118/75 (89) 95 97.6 06/04/25 20:00 Room Air* 0 21 Intake/Output Intake and Output 06/04/25 07:00 Intake Total 1350 ml Balance 1350 ml Intake Oral 1350 ml # Voids 3 # Bowel Movements 1 General Appearance: Alert, Cooperative HEENT: Atraumatic, PERRLA, EOMI, Mucous membr. moist/pink Neck: Supple Lungs: Clear to auscultation, Normal air movement Cardiovascular: Regular rate, Normal S1, Normal S2, No murmurs, Gallops, Rubs Abdomen: Normal bowel sounds, Soft, No tenderness Neuro: Cranial nerves 3-12 NL Medications Current Medications Medications Dose Ordered Sig/Teresa Route Start Time Stop Time Status Last Admin Dose Admin Methotrexate 1.5 mg DAILY PO 06/03/25 11:19 Hold Aspirin 81 mg DAILY PO 06/03/25 11:12 06/04/25 09:19 81 MG Docusate Sodium 100 mg DAILY PO 06/04/25 10:00 Nitroglycerin 0.4 mg Q5MINP PRN SL 06/03/25 10:45 Ondansetron HCl 4 mg Q4HP PRN IV 06/03/25 10:45 Diagnostic Test (Pha) 1 strip ACHS 06/03/25 11:30 06/04/25 21:45 1 STRIP Insulin Human Regular ACHS SC 06/03/25 11:30 06/04/25 21:51 4 UNITS Dextrose 50 ml UD PRN IV 06/03/25 10:45 Diphenhydramine HCl 25 mg Q6HP PRN IV 06/03/25 10:45 06/04/25 01:20 25 MG Prednisone 60 mg DAILY PO 06/04/25 10:00 06/04/25 09:19 60 MG Pantoprazole Sodium 40 mg DAILY IV 06/04/25 10:00 06/04/25 09:19 40 MG Laboratory Results Laboratory Tests 06/03/25 07:40 06/04/25 11:50 Chemistry Test 06/04/25 11:50 Albumin 3.4 g/dL (3.2-4.8) Calcium Level 9.2 mg/dL (8.7-10.4) Total Protein 6.2 g/dL (5.7-8.2) LFT Test 06/04/25 11:50 Alanine Aminotransferase (ALT) 26 U/L (7-40) Alkaline Phosphatase 85 U/L (46-116) Aspartate Amino Transferase (AST) 27 U/L (13-40) Total Bilirubin 0.3 mg/dL (0.2-1.0) HgA1c, TSH Test 06/04/25 11:50 Thyroid Stimulating Hormone (TSH) 0.80 uIU/mL (0.55-4.78) Urinalysis Test 06/04/25 01:27 Urine Color Light-yellow (Yellow) Urine Clarity Clear (Clear) Urine pH 6.5 (5.0-9.0) Urine Specific [place] 1.012 (1.001-1.035) Urine Protein Negative (Negative) Urine Ketones Negative (Negative) Urine Blood Negative /uL (Negative) Urine Nitrite Negative (Negative) Urine Bilirubin Negative (Negative) Urine Urobilinogen 2 mg/dL (Negative) H Urine Leukocyte Esterase Negative /uL (Negative) Urine RBC 1 /hpf (0 - 4) Urine Microscopic WBC 1 /HPF (0-5) Urine Squamous Epithelial Cells Few /hpf (<5) Urine Bacteria None seen /hpf (None Seen) Urine Glucose Normal mg/dL (Normal) Labs and/or images reviewed: Labs reviewed by me Assessment/Plan Assessment/Plan acute Chest pain r/o acs History of myocardial infarction Atypical, stabbing, midline radiating to epigastric region Not consistent with prior OR per patient Troponins 3, EKG serial monitoring, chest X-ray Continue telemetry monitoring Cardiology consult (Dr. butler) due to history of OR and recent stress testing Consider echocardiogram if new findings Lexiscan stress test on 04/25/2025 reportedly normal Continue to monitor for ischemic changes Resume home cardiac medications as appropriate acute allergic reaction Patient reports rash in arms, stomach, inner thighs Received Solu-Medrol in ED with improvement Monitor for progression of rash/swelling ordered prednisone and bendaryl prn for now can consider topical treatment if rash develops Evaluate for any new medications, exposures, or recent food intake chronic problems Diabetes mellitus type 2 Monitor blood glucose during admission/sliding scale insulin Hypertension Monitor vitals and manage as needed Continue home antihypertensives Rheumatoid arthritis Osteoarthritis History of myocardial infarction Continuing current management. Waiting for Cardiology to see the patient. This medical document was created using an electronic medical record system with [employer] computerized dictation system. Although this document has been carefully reviewed, there may still be some phonetic and typographical errors. These areas are purely typographical due to imperfections of the software programs, and do not reflect any compromise in the patient's medical care. Plan discussed with: Patient Date of Service: Jun 04, 2025 Billing Provider: MICHAEL DILLARD MD Common Visit Codes: [id number] INP/OBS CARE(HIGH) MICHAEL DILLARD MD Jun 04, 2025 23:41
[2025-06-05] VITALS (9 sets, daily range): BP systolic 106–135; BP diastolic 59–81; PULSE 47–66; RESP 12–18; TEMP 97.4–98.7; O2SAT 95–98
--- NOTE | 2025-06-05 08:31 | DVHPN2 ---
Progress Note - Dictate Date Seen: Jun 05, 2025 Medical Necessity Reason Pt with a Central, PICC or Fol: No vital signs Vital Sign Date Time Temp Pulse Resp B/P (MAP) Pulse Ox O2 Delivery O2 Flow Rate FiO2 06/05/25 05:00 97.4 55 12 135/81 (99) 98 97.4 06/04/25 20:00 Room Air* 0 21 Total Intake and Output 06/04/25 06/04/25 06/05/25 15:00 23:00 07:00 Intake Total 800 ml 1300 ml Balance 800 ml 1300 ml medications Current Medications Medications Dose Ordered Sig/Teresa Route Start Time Stop Time Status Last Admin Dose Admin Methotrexate 1.5 mg DAILY PO 06/03/25 11:19 Hold Aspirin 81 mg DAILY PO 06/03/25 11:12 06/04/25 09:19 81 MG Docusate Sodium 100 mg DAILY PO 06/04/25 10:00 Nitroglycerin 0.4 mg Q5MINP PRN SL 06/03/25 10:45 Ondansetron HCl 4 mg Q4HP PRN IV 06/03/25 10:45 Diagnostic Test (Pha) 1 strip ACHS 06/03/25 11:30 06/05/25 05:12 1 STRIP Insulin Human Regular ACHS SC 06/03/25 11:30 06/05/25 05:20 2 UNITS Dextrose 50 ml UD PRN IV 06/03/25 10:45 Diphenhydramine HCl 25 mg Q6HP PRN IV 06/03/25 10:45 06/04/25 01:20 25 MG Prednisone 60 mg DAILY PO 06/04/25 10:00 06/04/25 09:19 60 MG Pantoprazole Sodium 40 mg DAILY IV 06/04/25 10:00 06/04/25 09:19 40 MG laboratory and microbiology Laboratory Tests 06/04/25 11:50 06/03/25 07:40 Test 06/04/25 11:50 Range/Units Serum Glucose 107 H 74-106 mg/dL Assessment/Plan Patient is a 84-year-old female who presented to the hospital with dizziness/generalized weakness rash to bilateral arms and atypical chest pains. Cardiology was involved for cardiac aspects of care. Patient has recently started to come to our office as outpatient. She actually had nuclear stress test in April 18, 2025 which revealed normal perfusion. The echocardiogram of April 2025 also revealed preserved left ventricular systolic function and no specific valvular disease. She is known to have rheumatoid arthritis and is on methotrexate. Follows with echocardiographer as outside. She also has a history of abdominal tumor/cancer around 40 years ago for which received surgery and also chemotherapy for a while. Denies loss of consciousness. Denies palpitations. Not in acute distress. No JVD. Mucosa is pink and wet. No goiter. No carotid bruit. Lungs are clear to auscultation. Not using accessory muscles of breathing. Cardiac: Regular, no thrill/gallop. Abdomen is soft. Bowel sound is positive. There is no hepatomegaly. There is no abdominal mass. Extremities do not reveal edema. Dorsalis pedis is 2+ bilateral. There was no gross lateralized neurologic deficit. Past medical history includes prediabetes, rheumatoid arthritis (previously on Humira and now days on methotrexate), hyperlipidemia, old history of abdominal tumor/malignancy for which had cancer and chemotherapy over 40 years ago, hypertension, DJD, old history of knee replacement/hysterectomy/oophorectomy/appendectomy. Nuclear stress test of April 18, 2025 revealed normal perfusion and ejection fraction of 76% Echocardiogram of April 20, 2025 (performed in the office) revealed preserved left ventricular systolic function and no specific valvular disease. Creatinine: 0.76 - 0.67 Potassium: 4.1 - 4.1 M.8 AST/ALT: 27/26 TSH: 0.80 Troponin (high sensitive): 5 - 6 - 5 - 5 Chest x-ray revealed: IMPRESSION: No acute intrathoracic abnormality. EKG revealed sinus rhythm with no ST-T changes Tele reveals sinus rhythm Echocardiogram revealed: Left ventricle: Left ventricle is normal sized with normal systolic function. LVEF was around 65%. Diastolic function was considered normal for age. There was no wall motion abnormality. Right ventricle was normal sized with normal systolic function. Both atria were normal sized. Aortic valve was trileaflet. There was no aortic insufficiency/stenosis. There was trace mitral/tricuspid regurgitation. There was no pulmonary valve insufficiency. Right ventricular systolic pressure was assessed at 31 mm Hg which is considered normal. There was no pericardial effusion. Patient is a 84-year-old female who presented with dizziness/generalized weakness and atypical chest pains. She feels that she had some rash to bilateral arms also. Serial high sensitive troponin has been negative. EKG has been nonrevealing. Echocardiogram reveals good systolic function. Diastolic function was normal and there was no wall motion abnormalities. Recent nuclear stress test (May 03) was also normal. Acute coronary syndrome is less likely I am not considered at this point. Patient does have history of rheumatoid arthritis. Usually follows with echocardiographer Atypical chest discomfort Dizziness Prediabetes Rheumatoid arthritis History of abdominal malignancy, status post surgery/chemotherapy Hypertension Hyperlipidemia Cardiac suggestion for management: Managed on telemetry Follow-up electrolytes and kidney function tests and correct abnormalities. Keep potassium above 4 and magnesium above 2 Consider carotid sono Consider brain imaging Consider Neurology evaluation Long-term monitor can be arranged as outpatient Further evaluation and management depends on the above and clinical course A total of 75 minutes was spent reviewing the patient record, examining the patient, making a diagnostic and therapeutic plan, discussing this plan with medical personnel, following up on diagnostic studies and following the patient for clinical stability excluding any and all procedures. At least 50% of this time was spent in direct, [id number] contact. Thank you for allowing me to participate in this patient's care. Further recommendations will depend on patient's clinical course. Please do not hesitate to contact me if you have any questions or concerns. This medical document was created using electronic medical record system with [employer] computerized dictation system. Although this document has been carefully reviewed, there may still be some phonetic and typographical errors. These areas are purely typographical due to the imperfection of the software programs, and do not reflect any compromise in the patient's medical care. Plan discussed with: Patient, Other (nurse) GINNA CASTRO MD Jun 05, 2025 08:31
--- NOTE | 2025-06-05 09:49 | DVHINCON2 ---
Date of service: Jun 05, [address] CASTRO Reason for Consultation Dizziness History of Present Illness Ms. Smith is a 84 years old right-handed female with a history of hypertension, diabetes, coronary artery disease, rheumatoid arthritis, abdominal cancer, she was brought to the [facility] on 06/03/2025 with a chief complaint of chest pain, but she also has other medical complaints On 06/03/2025, along with her chest pressure, she also had intermittent lightheadedness and dizziness (inside, but not visible shaking). She had similar problems on 06/04 25 The lightheadedness is when she is standing up, but the dizziness (inside, but not visible shaking) occurred even when she was resting in the bed. She also developed skin rashes She denies similar problem before, she and her sister denies a history of anxiety, depression Urinalysis, 06/04/2025: Unremarkable WBC/HB/PLT/MCV, 06/03/2025: 8.1/41/228/103.1 MCV, 04/23/29: 100.9, 09/17/2023: 103.5, 10/14/2024: 100.7, 10/15/24: 100, 06/03/25: 103.1 CMP, 06/04/25: unremarkable Vitamin B12, 10/16/2025: 909 Folic acid, 10/16/2024: Telephone eight two TSH, sudden 5:0.8 CT HEAD, : 1. No acute intracranial abnormality. 2. Chronic small vessel ischemic disease. 3. If there is high clinical suspicion or concern for an acute infarct consider MRI for further evaluatio Past Medical History Hypertension, diabetes, coronary artery disease, rheumatoid arthritis, abdomen cancer status post surgery in the chemotherapy Past Surgical History Appendectomy, abdominal cancer resection Family History: Diabetes mellitus G8 MOTHER G8 BROTHER G8 BROTHER FH: glaucoma G8 MOTHER FH: stomach cancer G8 SISTER Family History Diabetes, glaucoma, cancer, longevity Social History She is a not a tobacco smoker, she denies a history of drug or alcohol abuse Allergies: Coded Allergies: Codeine (Verified Allergy, Unknown, 04/23/19) Home Meds Active Scripts Prednisone (Prednisone) 10 Mg Shar, 20 MG PO BID for 5 Days, #20 TAB Prov:ANITA FARLEY MD 02/02/25 Diphenhydramine-Zinc Acetate (DIPHENHYDRAMINE HCL/ZINC) 1 Cre Cre, 1 CRE EX Q6HP PRN for 7 Days, #1 CRE Prov:RICHELLE JIN RESIDENT 10/16/24 Cetirizine Hcl (Zyrtec Allergy) 10 Mg Cap, 10 MG PO DAILY for 7 Days, #7 CAP Prov:RICHELLE JIN RESIDENT 10/16/24 Methylprednisolone (Medrol Dosepak) 4 Mg Shar, 4 MG PO UD, #21 TAB UAD Prov:RICHELLE JIN RESIDENT 10/16/24 Reported Medications Folic Nkrb-Vsraqailcl-Locoqbcz (Folbic) Tab, 1 TAB PO DAILY, #90 TAB 1 Refill 06/03/25 Famotidine (PEPCID TABLET) 20 Mg Tb, 1 TAB PO BID, #60 TAB 5 Refills 06/03/25 Atorvastatin Calcium (ATORVASTATIN CALCIUM) 10 Mg Tab, 1 TAB PO DAILY, #30 TAB 5 Refills 06/03/25 Methotrexate (Methotrexate) 2.5 Mg Tab, 6 TAB PO QWEEKLY, #24 TAB 1 Refill 06/03/25 Cholecalciferol (VITAMIN D3) 2,000 Unit Tab, 5000 UNIT OR DAILY, TAB 06/03/25 Methotrexate (Methotrexate) 2.5 Mg Tab, 1.5 MG PO, MG 10/14/24 Current Medications Current Medications Medications (Trade) Dose Ordered Sig/Teresa Route PRN Reason Start Time Stop Time Status Last Admin Docusate Sodium (Colace Capsule) 100 mg DAILY PO 06/04/25 10:00 Prednisone 60 mg DAILY PO 06/04/25 10:00 06/05/25 08:51 Pantoprazole Sodium (Protonix) 40 mg DAILY IV 06/04/25 10:00 06/05/25 08:50 Review of Systems As above, the other systems are negative Vital Signs Vital Signs Date Time Temp Pulse Resp B/P (MAP) Pulse Ox O2 Delivery O2 Flow Rate FiO2 06/05/25 05:00 97.4 55 12 135/81 (99) 98 97.4 06/04/25 20:00 Room Air* 0 21 Physical Exam GENERAL EXAM: General: the patient is well developed and nourished. No acute distress. HEENT: Normocephalic, neck is supple, no carotid bruits. No mass. RESPIRATORY: Normal respiratory effort with symmetrical lung expansion. Lungs clear to auscultation. CARDIOVASCULAR: Regular rate and rhythm with no murmurs. S1, S2. ABDOMEN: Soft, nontender, normal bowel sound NEUROLOGICAL: MENTAL STATUS: Awake and alert. Oriented to person, place, time and general circumstances. Able to give personal history SPEECH, LANGUAGE, HIGHER CORTICAL FUNCTION: no aphasia or dysathria. CRANIAL NERVES: #2: Intact visual krueger to confrontation. The optic discs were sharp. #3,4,6: Pupils are equal, round and reactive. EOMs full and conjugate. No nystagmus. #5: Facial sensation intact in all three divisions bilaterally. Mandibular strength intact. #7: Facial muscles symmetrical and strength intact. #8: Hearing grossly normal to voice. #9,10: Uvula and soft palate rise in the midline. Swallow and voice are normal. #11: Trapezius and sternomastoid strength intact bilaterally. #12: Tongue midline. No fasciculations or atrophy. SENSATION: Sensation to touch and pinprick is normal. MOTOR: Normal tone in the upper and lower extremity. Normal muscle bulk. No fasciculations. No abnormal movements or posturing. Muscle strength of the major groups in the upper extremities is 5/5. Muscle strength of the major groups in the lower extremities is 5/5. REFLEXES: Deep tendon reflexes normal and symmetrical. No pathological reflexes. CEREBELLAR/COORDINATION: Finger to nose is normal bilaterally. GAIT/STATION: deferred. Labs/Diagnostic Data Labs Test 06/05/25 05:13 06/04/25 11:50 06/04/25 01:27 06/03/25 14:00 Range/Units POC Glucose 138 H 70-106 mg/dl Sodium Level 137 136-145 mmol/L Potassium Level 4.1 3.5-5.1 mmol/L Chloride Level 105 98-107 mmol/L Carbon Dioxide Level 22 20-31 mmol/L Anion Gap 10 5-15 Blood Urea Nitrogen 14 9-23 mg/dL Creatinine 0.67 0.550-1.02 mg/dL Glomerular Filtration Rate Calc 87 >90 mL/min BUN/Creatinine Ratio 20.9 H 10.0-20.0 Serum Glucose 107 H 74-106 mg/dL Calcium Level 9.2 8.7-10.4 mg/dL Total Bilirubin 0.3 0.2-1.0 mg/dL Aspartate Amino Transferase (AST) 27 13-40 U/L Alanine Aminotransferase (ALT) 26 7-40 U/L Alkaline Phosphatase 85 46-116 U/L Total Protein 6.2 5.7-8.2 g/dL Albumin 3.4 3.2-4.8 g/dL Thyroid Stimulating Hormone (TSH) 0.80 0.55-4.78 uIU/mL Urine Color Light-yellow Yellow Urine Clarity Clear Clear Urine pH 6.5 5.0-9.0 Urine Specific [place] 1.012 1.001-1.035 Urine Protein Negative Negative Urine Ketones Negative Negative Urine Blood Negative Negative /uL Urine Nitrite Negative Negative Urine Bilirubin Negative Negative Urine Urobilinogen 2 H Negative mg/dL Urine Leukocyte Esterase Negative Negative /uL Urine RBC 1 0 - 4 /hpf Urine Microscopic WBC 1 0-5 /HPF Urine Squamous Epithelial Cells Few <5 /hpf Urine Bacteria None seen None Seen /hpf Urine Glucose Normal Normal mg/dL Troponin I High Sensitivity 5 </=34 ng/L Test 06/03/25 07:40 Range/Units White Blood Count 8.1 4.4-10.8 10^3/uL Red Blood Count 3.95 L 4.0-5.20 10^6/uL Hemoglobin 14.1 12.2-16.2 g/dL Hematocrit 40.7 36.0-46.0 % Mean Corpuscular Volume 103.1 H 80.0-100.0 fL Mean Corpuscular Hemoglobin 35.6 H 28.0-32.0 pg Mean Corpuscular Hemoglobin Concent 34.6 32.0-36.0 g/dL Red Cell Distribution Width 17.9 H 11.8-14.3 % Platelet Count 228 140-450 10^3/uL Mean Platelet Volume 9.2 6.9-10.8 fL Neutrophils (%) (Auto) 71.1 37.0-80.0 % Lymphocytes (%) (Auto) 21.4 10.0-50.0 % Monocytes (%) (Auto) 7.0 0.0-12.0 % Eosinophils (%) (Auto) 0.4 0.0-7.0 % Basophils (%) (Auto) 0.1 0.0-2.0 % Neutrophils # (Auto) 5.8 1.6-8.6 10 ^3/uL Lymphocytes # (Auto) 1.7 0.4-5.4 10 ^3/uL Monocytes # (Auto) 0.6 0-1.3 10 ^3/uL Eosinophils # (Auto) 0 0-0.8 10 ^3/uL Basophils # (Auto) 0 0-0.2 10 ^3/uL Nucleated Red Blood Cells 0.0 % Magnesium Level 1.8 1.6-2.6 mg/dL Assessment Lightheadedness Orthostatic palpitation Presyncope Invisible/inside shaking ? Stress/anxiety ? Seizure, less likely Macrocytosis Plan/Recommendation Monitoring Supportive treatment Telemetry Follow-up vitamin B12, folic acid EEG MR brain scan Syncope precautions Cardiology workup More recommendation per clinical course Progress: Poor This medical document was created using an electronic medical record system with [employer] dictation system. Although this document has been carefully reviewed, there may still be some phonetic and typographical errors. These areas are purely typographical due to imperfections of the software programs, and do not reflect any compromise in the patient's medical care. Plan discussed with: Patient, Other MARIE POOL MD Jun 05, 2025 09:49
[2025-06-05] MEDS ORDERED: LORazepam 2MG/ML-1ML VIAL IV PRN (10:30)
--- NOTE | 2025-06-05 11:20 | DVH ---
EXAM: CT HEAD WITHOUT CONTRAST INDICATION: dizziness TECHNIQUE: CT of the head without intravenous contrast. Radiation Dose Information: CT Dose: CTDI volume is 51.28 mGy. Dose-length product is 908.09 mGy*cm The dose indicators for CT are the volume Computed Tomography (CT) Dose Index (CTDIvol) and the Dose Length Product (DLP), and are measured in units of mGy and mGy-cm, respectively. These indicators are not patient dose, but values generated from the CT scanner acquisition factors. The report includes radiation exposure data for exposures received during this examination. COMPARISON: CT HEAD WITHOUT CONTRAST on DOS: 01/30/24 FINDINGS: There is no evidence of acute intracranial hemorrhage, extra-axial collection, mass effect, midline s hift, herniation or hydrocephalus. The ventricles, sulci and cisterns are age appropriate. The hernandez-white differentiation is intact. Patchy periventricular and subcortical white matter hypoattenuation is nonspecific but may be related to small vessel ischemic disease. The visualized paranasal sinuses and mastoid air cells are clear. The surrounding soft tissues and osseous structures are unremarkable. IMPRESSION: No acute intracranial abnormality.
--- NOTE | 2025-06-05 11:31 | DVHPN2 ---
Subjective The patient is seen and examined at bedside. Still complain of chest pain and dizziness. Reviewed: Care Plan, H&P, Labs, Medications, Previous Orders, Radiology Changes from previous H/P or p: No Changes Eyes: No Pain, No Vision change, No Conjunctivae inflammation, No Eyelid inflammation, No Other, No Redness ENT: No Ear pain, No Ear discharge, No Nose pain, No Nose discharge, No Nose congestion, No Mouth pain, No Mouth swelling, No Throat pain, No Throat swelling, No Other Cardiovascular: Chest Pain; No Palpitations, No Orthopnea, No Paroxysmal Noc. Dyspnea, No Edema, No Lt Headedness, No Other Respiratory: No Cough, No Dry, No Shortness of breath, No SOB with excertion, No Wheezing, No Hemoptysis, No Pleuritic Pain, No Sputum, No Other Gastrointestinal: No Nausea, No Vomiting, No Abdominal Pain, No Diarrhea, No Constipation, No Melena, No Hematochezia, No Other Genitourinary: No Dysuria, No Frequency, No Incontinence, No Hematuria, No Retention, No Other Musculoskeletal: No other, No neck pain, No shoulder pain, No arm pain, No back pain, No hand pain, No leg pain, No foot pain Skin: No Rash, No Lesions, No Jaundice, No Bruising, No Other Objective Vitals Vital Signs Date Time Temp Pulse Resp B/P (MAP) Pulse Ox O2 Delivery O2 Flow Rate FiO2 06/05/25 09:00 97.6 52 18 135/73 (93) 96 97.6 06/05/25 08:00 Room Air* 0 21 Intake/Output Intake and Output 06/05/25 07:00 Intake Total 2100 ml Balance 2100 ml Intake Oral 2100 ml # Voids 6 # Bowel Movements 1 General Appearance: Alert, Cooperative HEENT: Atraumatic, PERRLA, EOMI, Mucous membr. moist/pink Neck: Supple Lungs: Clear to auscultation, Normal air movement Cardiovascular: Regular rate, Normal S1, Normal S2, No murmurs, Gallops, Rubs Abdomen: Normal bowel sounds, Soft, No tenderness Neuro: Cranial nerves 3-12 NL Medications Current Medications Medications Dose Ordered Sig/Teresa Route Start Time Stop Time Status Last Admin Dose Admin Methotrexate 1.5 mg DAILY PO 06/03/25 11:19 Hold Aspirin 81 mg DAILY PO 06/03/25 11:12 06/05/25 08:51 81 MG Docusate Sodium 100 mg DAILY PO 06/04/25 10:00 Nitroglycerin 0.4 mg Q5MINP PRN SL 06/03/25 10:45 Ondansetron HCl 4 mg Q4HP PRN IV 06/03/25 10:45 Diagnostic Test (Pha) 1 strip ACHS 06/03/25 11:30 06/05/25 05:12 1 STRIP Insulin Human Regular ACHS SC 06/03/25 11:30 06/05/25 05:20 2 UNITS Dextrose 50 ml UD PRN IV 06/03/25 10:45 Diphenhydramine HCl 25 mg Q6HP PRN IV 06/03/25 10:45 06/04/25 01:20 25 MG Prednisone 60 mg DAILY PO 06/04/25 10:00 06/05/25 08:51 60 MG Pantoprazole Sodium 40 mg DAILY IV 06/04/25 10:00 06/05/25 08:50 40 MG Lorazepam 1 mg ONCE PRN IV 06/05/25 10:30 Laboratory Results Laboratory Tests 06/03/25 07:40 06/04/25 11:50 Chemistry Test 06/04/25 11:50 Albumin 3.4 g/dL (3.2-4.8) Calcium Level 9.2 mg/dL (8.7-10.4) Total Protein 6.2 g/dL (5.7-8.2) LFT Test 06/04/25 11:50 Alanine Aminotransferase (ALT) 26 U/L (7-40) Alkaline Phosphatase 85 U/L (46-116) Aspartate Amino Transferase (AST) 27 U/L (13-40) Total Bilirubin 0.3 mg/dL (0.2-1.0) HgA1c, TSH Test 06/04/25 11:50 Thyroid Stimulating Hormone (TSH) 0.80 uIU/mL (0.55-4.78) Urinalysis Test 06/04/25 01:27 Urine Color Light-yellow (Yellow) Urine Clarity Clear (Clear) Urine pH 6.5 (5.0-9.0) Urine Specific [place] 1.012 (1.001-1.035) Urine Protein Negative (Negative) Urine Ketones Negative (Negative) Urine Blood Negative /uL (Negative) Urine Nitrite Negative (Negative) Urine Bilirubin Negative (Negative) Urine Urobilinogen 2 mg/dL (Negative) H Urine Leukocyte Esterase Negative /uL (Negative) Urine RBC 1 /hpf (0 - 4) Urine Microscopic WBC 1 /HPF (0-5) Urine Squamous Epithelial Cells Few /hpf (<5) Urine Bacteria None seen /hpf (None Seen) Urine Glucose Normal mg/dL (Normal) Labs and/or images reviewed: Labs reviewed by me Assessment/Plan Assessment/Plan acute Chest pain r/o acs History of myocardial infarction Atypical, stabbing, midline radiating to epigastric region Not consistent with prior VT per patient Troponins 3, EKG serial monitoring, chest X-ray Continue telemetry monitoring Cardiology consult (Dr. butler) due to history of VT and recent stress testing Consider echocardiogram if new findings Lexiscan stress test on 04/25/2025 reportedly normal Continue to monitor for ischemic changes Resume home cardiac medications as appropriate acute allergic reaction Patient reports rash in arms, stomach, inner thighs Received Solu-Medrol in ED with improvement Monitor for progression of rash/swelling ordered prednisone and bendaryl prn for now can consider topical treatment if rash develops Evaluate for any new medications, exposures, or recent food intake chronic problems Diabetes mellitus type 2 Monitor blood glucose during admission/sliding scale insulin Hypertension Monitor vitals and manage as needed Continue home antihypertensives Rheumatoid arthritis Osteoarthritis History of myocardial infarction Continuing current management. Appreciate treating machine operator's recommendation Neurology has been consulted. Neurologist see the patient, Dr. Nino recommend MRI of the brain and EEG Waiting for EEG results and MRI results. This medical document was created using an electronic medical record system with [employer] direct computerized dictation system. Although this document has been carefully reviewed, there may still be some phonetic and typographical errors. These areas are purely typographical due to imperfections of the software programs, and do not reflect any compromise in the patient's medical care. Plan discussed with: Patient My Orders Orders - MICHAEL DILLARD MD Procedure Category Date Status Time Complete Blood Count LAB 06/05/25 Logged 08:30 Basic Metabolic Panel LAB 06/05/25 Logged 08:30 Date of Service: Jun 05, 2025 Billing Provider: MICHAEL DILLARD MD Common Visit Codes: [id number] INP/OBS CARE(HIGH) MICHAEL DILLARD MD Jun 05, 2025 11:31
[2025-06-05 11:41] LABS: Hemoglobin 12.6 g/dL (12.2-16.2)
[2025-06-05 11:43] LABS: Hematocrit 36.2 % (36.0-46.0); Mean Corpuscular Hemoglobin 35.8 pg (28.0-32.0); Mean Corpuscular Volume 102.9 fL (80.0-100.0); Nucleated Red Blood Cells % 0.1 %
[2025-06-05 11:47] LABS: Chloride 104 mmol/L (98-107); Potassium 3.8 mmol/L (3.5-5.1); Sodium 139 mmol/L (136-145)
[2025-06-05 11:48] LABS: Anion Gap 9 (5-15); Carbon Dioxide 26 mmol/L (20-31)
[2025-06-05 11:49] LABS: Calcium 9.6 mg/dL (8.7-10.4)
[2025-06-05 11:54] LABS: BUN/Creatinine Ratio 21.4 (10.0-20.0); Blood Urea Nitrogen 15 mg/dL (9-23); Glucose 103 mg/dL (74-106)
--- NOTE | 2025-06-05 12:10 | DVH ---
EXAMINATION: MRI BRAIN HEAD WO CONTRAST INDICATION: Dizziness, shaking COMPARISON: CT head dated 06/05/25. TECHNIQUE: Multiplanar, multisequence magnetic resonance imaging of the brain was performed without the use of i ntravenous contrast. FINDINGS: No evidence of acute infarct. No intracranial hemorrhage. No mass effect. There is moderate periventricular/deep white matter T2/FLAIR hyperintensity is nonspecific, but most commonly associated with chronic microvascular disease. The ventricles and sulci are normal in size for age. Clear basal cisterns. Flow voids in the major intracranial vessels are maintained. No abnormality of the orbits. Paranasal sinuses and mastoid air cells are clear. No abnormality of the visualized osseous structures and extracranial soft tissues. IMPRESSION: 1. No acute infarct, intracranial hemorrhage, mass effect, or hydrocephalus. 2. Moderate periventricular and subcortical T2/FLAIR white matter hyperintensities, nonspecific but m ost likely reflecting sequelae of chronic microvascular ischemic changes although other etiologies ar e not excluded.
--- NOTE | 2025-06-05 12:22 | DVH ---
Carotid Duplex Clinical History: dizziness Comparison: None Technique: Duplex Doppler evaluation of the extracranial carotid and vertebral arteries including color Doppler and spectral/pulsed waveform analysis was performed. Findings: RIGHT SIDE: The peak systolic velocities are 67 cm/s in the CCA, 53 cm/s in the ICA. The ICA/CCA ratio is 0.8. The external carotid artery is patent with peak systolic velocity of 90 cm/s proximally. There is appropriate antegrade flow in the right vertebral artery. LEFT SIDE: The peak systolic velocities are 59 cm/s in the CCA, 60 cm/s in the ICA. The ICA/CCA ratio is 1.0. The external carotid artery is patent with peak systolic velocity of 80 cm/s proximally. There is appropriate antegrade flow in the left vertebral artery. IMPRESSION: No hemodynamically significant stenosis noted in the right carotid system. No hemodynamically significant stenosis noted in the left carotid system. Reference: Radiology 2003; 229:340-346 Normal ICA PSV is <125 cm/sec and no plaque or intimal thickening is visible sonographically addition al criteria include ICA/CCA PSV ratio <2.0 and ICA EDV <40 cm/sec <50% ICA stenosis ICA PSV is <125 cm/sec and plaque or intimal thickening is visible sonographically additional criteria include ICA/CCA PSV ratio <2.0 and ICA EDV <40 cm/sec 50-69% ICA stenosis ICA PSV is 125-230 cm/sec and plaque is visible sonographically additional criter ia include ICA/CCA PSV ratio of 2.0-4.0 and ICA EDV of 40-100 cm/sec 70% ICA stenosis but less than near occlusion ICA PSV is >230 cm/sec and visible plaque and luminal narrowing are seen at hernandez-scale and color Doppler ultrasound (the higher the Doppler parameters lie above the threshold of 230 cm/sec, the greater the likelihood of severe disease) additional criteria include ICA/CCA PSV ratio >4 and ICA EDV >100 cm/sec
--- NOTE | 2025-06-05 22:05 | DVHEEG2 ---
Neurology EEG Procedural Note Procedural Note EXAM DATE: 06/05/2025 REFERRING DOCTOR: Dr. Pool TECHNIQUE: Eighteen channels of EEG, 2 channels of EOG, and 1 channel of EKG were recorded using the International 10/20 system. CLINICAL DATA: The patient was referred for an EEG evaluation for the evidence of seizure disorder. MEDICATIONS: See the chart BACKGROUND ACTIVITY: While the patient was awake, the background activity consisted of well regulated 8-9 Hz rhythmic waveforms, symmetrically distributed over both posterior quadrants and was reactive to eye opening. ACTIVATION: Hyperventilation: Not done Photic Stimulation: Not done Sleep: Stage I IMPRESSION: This is a normal EEG. No focal, lateralized, or epileptiform features are noted. If clinically indicated to rule out a seizure disorder, recommend repeat EEG with sleep deprivation. The EKG channel showed a regular heart rate of 66/min. [place] [address] MARIE POOL MD Jun 05, 2025 22:05
[2025-06-06] VITALS (7 sets, daily range): BP systolic 116–149; BP diastolic 67–75; PULSE 48–73; RESP 17–18; TEMP 97.5–98.4; O2SAT 96–100
--- NOTE | 2025-06-06 07:56 | DVHPN2 ---
Progress Note - Dictate Date Seen: Jun 06, 2025 Medical Necessity Reason Pt with a Central, PICC or Fol: No vital signs Vital Sign Date Time Temp Pulse Resp B/P (MAP) Pulse Ox O2 Delivery O2 Flow Rate FiO2 06/06/25 05:00 57 18 125/70 (88) 100 06/06/25 05:00 98.3 98.3 06/05/25 19:45 Room Air* 0 21 Total Intake and Output 06/05/25 06/05/25 06/06/25 15:00 23:00 07:00 Intake Total 600 ml 800 ml Balance 600 ml 800 ml medications Current Medications Medications Dose Ordered Sig/Teresa Route Start Time Stop Time Status Last Admin Dose Admin Methotrexate 1.5 mg DAILY PO 06/03/25 11:19 Hold Aspirin 81 mg DAILY PO 06/03/25 11:12 06/05/25 08:51 81 MG Docusate Sodium 100 mg DAILY PO 06/04/25 10:00 Nitroglycerin 0.4 mg Q5MINP PRN SL 06/03/25 10:45 Ondansetron HCl 4 mg Q4HP PRN IV 06/03/25 10:45 Diagnostic Test (Pha) 1 strip ACHS 06/03/25 11:30 06/06/25 05:07 1 STRIP Insulin Human Regular ACHS SC 06/03/25 11:30 06/05/25 21:06 2 UNITS Dextrose 50 ml UD PRN IV 06/03/25 10:45 Diphenhydramine HCl 25 mg Q6HP PRN IV 06/03/25 10:45 06/04/25 01:20 25 MG Prednisone 60 mg DAILY PO 06/04/25 10:00 06/05/25 08:51 60 MG Pantoprazole Sodium 40 mg DAILY IV 06/04/25 10:00 06/05/25 08:50 40 MG Lorazepam 1 mg ONCE PRN IV 06/05/25 10:30 laboratory and microbiology Laboratory Tests 06/05/25 11:21 Test 06/05/25 11:21 Range/Units Serum Glucose 103 74-106 mg/dL Assessment/Plan Patient is a 84-year-old female who presented to the hospital with dizziness/generalized weakness rash to bilateral arms and atypical chest pains. Cardiology was involved for cardiac aspects of care. Patient has recently started to come to our office as outpatient. She actually had nuclear stress test in April 18, 2025 which revealed normal perfusion. The echocardiogram of April 2025 also revealed preserved left ventricular systolic function and no specific valvular disease. She is known to have rheumatoid arthritis and is on methotrexate. Follows with testing specialist as outside. She also has a history of abdominal tumor/cancer around 40 years ago for which received surgery and also chemotherapy for a while. Denies loss of consciousness. Denies palpitations. Not in acute distress. No JVD. Mucosa is pink and wet. No goiter. No carotid bruit. Lungs are clear to auscultation. Not using accessory muscles of breathing. Cardiac: Regular, no thrill/gallop. Abdomen is soft. Bowel sound is positive. There is no hepatomegaly. There is no abdominal mass. Extremities do not reveal edema. Dorsalis pedis is 2+ bilateral. There was no gross lateralized neurologic deficit. Past medical history includes prediabetes, rheumatoid arthritis (previously on Humira and now days on methotrexate), hyperlipidemia, old history of abdominal tumor/malignancy for which had cancer and chemotherapy over 40 years ago, hypertension, DJD, old history of knee replacement/hysterectomy/oophorectomy/appendectomy. Nuclear stress test of April 18, 2025 revealed normal perfusion and ejection fraction of 76% Echocardiogram of April 20, 2025 (performed in the office) revealed preserved left ventricular systolic function and no specific valvular disease. Creatinine: 0.76 - 0.67 - 0.70 Potassium: 4.1 - 4.1 - 3.8 M.8 AST/ALT: 27/26 TSH: 0.80 Troponin (high sensitive): 5 - 6 - 5 - 5 Chest x-ray revealed: IMPRESSION: No acute intrathoracic abnormality. Carotic Duplex revealed: IMPRESSION: No hemodynamically significant stenosis noted in the right carotid system. No hemodynamically significant stenosis noted in the left carotid system. CT of head revealed: IMPRESSION: No acute intracranial abnormality. MRI of brain revealed: IMPRESSION: 1. No acute infarct, intracranial hemorrhage, mass effect, or hydrocephalus. 2. Moderate periventricular and subcortical T2/FLAIR white matter hyperintensities, nonspecific but most likely reflecting sequelae of chronic microvascular ischemic changes although other etiologies are not excluded. EKG revealed sinus rhythm with no ST-T changes Tele reveals sinus rhythm Echocardiogram revealed: Left ventricle: Left ventricle is normal sized with normal systolic function. LVEF was around 65%. Diastolic function was considered normal for age. There was no wall motion abnormality. Right ventricle was normal sized with normal systolic function. Both atria were normal sized. Aortic valve was trileaflet. There was no aortic insufficiency/stenosis. There was trace mitral/tricuspid regurgitation. There was no pulmonary valve insufficiency. Right ventricular systolic pressure was assessed at 31 mm Hg which is considered normal. There was no pericardial effusion. Patient is a 84-year-old female who presented with dizziness/generalized weakness and atypical chest pains. She feels that she had some rash to bilateral arms also. Serial high sensitive troponin has been negative. EKG has been nonrevealing. Echocardiogram reveals good systolic function. Diastolic function was normal and there was no wall motion abnormalities. Recent nuclear stress test (May 03) was also normal. Acute coronary syndrome is less likely I am not considered at this point. Patient does have history of rheumatoid arthritis. Usually follows with testing specialist. Seen by Neurologist. EEG was non-revealing. Imaging of brain was non-revealing. Vitals were done for orthostasis: normal/negative for orthostasis. Atypical chest discomfort Dizziness Prediabetes Rheumatoid arthritis History of abdominal malignancy, status post surgery/chemotherapy Hypertension Hyperlipidemia Negative for Orthostasis Cardiac suggestion for management: Manage on telemetry Follow-up electrolytes and kidney function tests and correct abnormalities. Keep potassium above 4 and magnesium above 2 Neurology follow up Long-term monitor can be arranged as outpatient Cardiac wetzel, can be followed as outpatient Further evaluation and management depends on the above and clinical course A total of 55 minutes was spent reviewing the patient record, examining the patient, making a diagnostic and therapeutic plan, discussing this plan with medical personnel, following up on diagnostic studies and following the patient for clinical stability excluding any and all procedures. At least 50% of this time was spent in direct, [id number] contact. Thank you for allowing me to participate in this patient's care. Further recommendations will depend on patient's clinical course. Please do not hesitate to contact me if you have any questions or concerns. This medical document was created using electronic medical record system with [employer] dictation system. Although this document has been carefully reviewed, there may still be some phonetic and typographical errors. These areas are purely typographical due to the imperfection of the software programs, and do not reflect any compromise in the patient's medical care. Plan discussed with: Patient, Other (nurse) GINNA CASTRO MD Jun 06, 2025 07:56
--- NOTE | 2025-06-06 10:07 | DVHPN2 ---
Progress Note - Dictate Date Seen: Jun 06, 2025 Medical Necessity Reason Pt with a Central, PICC or Fol: No Subjective Ms. Smith is a 84 years old right-handed female with a history of hypertension, diabetes, coronary artery disease, rheumatoid arthritis, abdominal cancer, she was brought to the [facility] on 06/03/2025 with a chief complaint of chest pain, but she also has other medical complaints I have seen and examined the patient, discussed with her nurse, she is doing fine. she does not have lightheadedness, dizziness (insert shaking) today no new complaints Orthostatic vitals were normal Urinalysis, 06/04/2025: Unremarkable WBC/HB/PLT/MCV, 06/03/2025: 8.1/41/228/103.1 MCV, 04/23/29: 100.9, 09/17/2023: 103.5, 10/14/2024: 100.7, 10/15/24: 100, 06/03/25: 103.1 CMP, 06/04/25: unremarkable Vitamin B12, 10/16/2024: 909, 06/05/25: 1770 Folic acid, 10/16/2024: 4.82, 06/05/2025: 6.85 TSH, 06/04/25: 0.8 EEG, 06/05/2025: Normal CT HEAD, : 1. No acute intracranial abnormality. 2. Chronic small vessel ischemic disease. 3. If there is high clinical suspicion or concern for an acute infarct consider MRI for further evaluation MRI head, 06/05/2025: 1. No acute infarct, intracranial hemorrhage, mass effect, or hydrocephalus. 2. Moderate periventricular and subcortical T2/FLAIR white matter hyperintensities, nonspecific but most likely reflecting sequelae of chronic microvascular ischemic changes although other etiologies are not excluded vital signs Vital Sign Date Time Temp Pulse Resp B/P (MAP) Pulse Ox O2 Delivery O2 Flow Rate FiO2 06/06/25 09:00 98.0 48 18 141/69 (93) 98 98.0 06/06/25 08:00 Room Air* 0 21 Total Intake and Output 06/05/25 06/05/25 06/06/25 15:00 23:00 07:00 Intake Total 600 ml 800 ml Balance 600 ml 800 ml medications Current Medications Medications Dose Ordered Sig/Teresa Route Start Time Stop Time Status Last Admin Dose Admin Methotrexate 1.5 mg DAILY PO 06/03/25 11:19 Hold Aspirin 81 mg DAILY PO 06/03/25 11:12 06/06/25 09:17 81 MG Docusate Sodium 100 mg DAILY PO 06/04/25 10:00 06/06/25 09:17 100 MG Nitroglycerin 0.4 mg Q5MINP PRN SL 06/03/25 10:45 Ondansetron HCl 4 mg Q4HP PRN IV 06/03/25 10:45 Diagnostic Test (Pha) 1 strip ACHS 06/03/25 11:30 06/06/25 05:07 1 STRIP Insulin Human Regular ACHS SC 06/03/25 11:30 06/05/25 21:06 2 UNITS Dextrose 50 ml UD PRN IV 06/03/25 10:45 Diphenhydramine HCl 25 mg Q6HP PRN IV 06/03/25 10:45 06/04/25 01:20 25 MG Prednisone 60 mg DAILY PO 06/04/25 10:00 06/06/25 09:16 60 MG Pantoprazole Sodium 40 mg DAILY IV 06/04/25 10:00 06/06/25 09:19 40 MG Lorazepam 1 mg ONCE PRN IV 06/05/25 10:30 objective General: the patient is well developed and nourished. No acute distress. MENTAL STATUS: Awake and alert. Oriented to person, place, time and general circumstances. Able to give personal history SPEECH, LANGUAGE, HIGHER CORTICAL FUNCTION: no aphasia or dysathria. CRANIAL NERVES: Pupils are equal, round and reactive. EOMs full and conjugate. No nystagmus. Facial sensation intact in all three divisions bilaterally. Mandibular strength intact. Facial muscles symmetrical and strength intact. SENSATION: Sensation to touch and pinprick is normal. MOTOR: Normal tone in the upper and lower extremity. Normal muscle bulk. No fasciculations. No abnormal movements or posturing. Muscle strength of the major groups in the extremities is 5/5. REFLEXES: Deep tendon reflexes normal and symmetrical. No pathological reflexes. CEREBELLAR/COORDINATION: Finger to nose is normal bilaterally. GAIT/STATION: deferred laboratory and microbiology Laboratory Tests 06/05/25 11:21 Test 06/05/25 11:21 Range/Units Serum Glucose 103 74-106 mg/dL Problem List Lightheadedness ? Orthostatic hypotension Presyncope Invisible/inside shaking ? Stress/anxiety ? Seizure, less likely Macrocytosis Assessment/Plan This medical document was created using an electronic medical record system with [employer] dictation system. Although this document has been carefully reviewed, there may still be some phonetic and typographical errors. These areas are purely typographical due to imperfections of the software programs, and do not reflect any compromise in the patient's medical care.Lightheadedness Orthostatic palpitation Presyncope Invisible/inside shaking ? Stress/anxiety ? Seizure, less likely Macrocytosis Prognosis poor Plan discussed with: Patient, Other MARIE POOL MD Jun 06, 2025 10:07
--- NOTE | 2025-06-06 11:34 | DVHDS2 ---
Discharge Summary Date of Admission Jun 03, 2025 at 10:43 Date of Discharge: Jun 06, 2025 Admitting Diagnosis acute Chest pain r/o acs History of myocardial infarction acute allergic reaction Patient reports rash in arms, stomach, inner thighs Diabetes mellitus type 2 Monitor blood glucose during admission/sliding scale insulin Hypertension Monitor vitals and manage as needed Continue home antihypertensives Rheumatoid arthritis Osteoarthritis History of myocardial infarction Labs/Diagnostic Data: Laboratory Results Test 06/06/25 05:02 06/05/25 11:21 06/04/25 11:50 06/04/25 01:27 POC Glucose 111 mg/dl (70-106) White Blood Count 14.3 10^3/uL (4.4-10.8) Red Blood Count 3.52 10^6/uL (4.0-5.20) Hemoglobin 12.6 g/dL (12.2-16.2) Hematocrit 36.2 % (36.0-46.0) Mean Corpuscular Volume 102.9 fL (80.0-100.0) Mean Corpuscular Hemoglobin 35.8 pg (28.0-32.0) Mean Corpuscular Hemoglobin Concent 34.8 g/dL (32.0-36.0) Red Cell Distribution Width 17.6 % (11.8-14.3) Platelet Count 207 10^3/uL (140-450) Mean Platelet Volume 9.0 fL (6.9-10.8) Neutrophils (%) (Auto) 85.1 % (37.0-80.0) Lymphocytes (%) (Auto) 9.2 % (10.0-50.0) Monocytes (%) (Auto) 5.6 % (0.0-12.0) Eosinophils (%) (Auto) 0.0 % (0.0-7.0) Basophils (%) (Auto) 0.1 % (0.0-2.0) Neutrophils # (Auto) 12.2 10 ^3/uL (1.6-8.6) Lymphocytes # (Auto) 1.3 10 ^3/uL (0.4-5.4) Monocytes # (Auto) 0.8 10 ^3/uL (0-1.3) Eosinophils # (Auto) 0 10 ^3/uL (0-0.8) Basophils # (Auto) 0 10 ^3/uL (0-0.2) Nucleated Red Blood Cells 0.1 % Sodium Level 139 mmol/L (136-145) Potassium Level 3.8 mmol/L (3.5-5.1) Chloride Level 104 mmol/L (98-107) Carbon Dioxide Level 26 mmol/L (20-31) Anion Gap 9 (5-15) Blood Urea Nitrogen 15 mg/dL (9-23) Creatinine 0.70 mg/dL (0.550-1.02) Glomerular Filtration Rate Calc 86 mL/min (>90) BUN/Creatinine Ratio 21.4 (10.0-20.0) Serum Glucose 103 mg/dL (74-106) Calcium Level 9.6 mg/dL (8.7-10.4) Vitamin B12 Level 1770 pg/mL (211-911) Folic Acid 6.85 ng/mL (>5.38) Total Bilirubin 0.3 mg/dL (0.2-1.0) Aspartate Amino Transferase (AST) 27 U/L (13-40) Alanine Aminotransferase (ALT) 26 U/L (7-40) Alkaline Phosphatase 85 U/L (46-116) Total Protein 6.2 g/dL (5.7-8.2) Albumin 3.4 g/dL (3.2-4.8) Thyroid Stimulating Hormone (TSH) 0.80 uIU/mL (0.55-4.78) Urine Color Light-yellow (Yellow) Urine Clarity Clear (Clear) Urine pH 6.5 (5.0-9.0) Urine Specific [place] 1.012 (1.001-1.035) Urine Protein Negative (Negative) Urine Ketones Negative (Negative) Urine Blood Negative /uL (Negative) Urine Nitrite Negative (Negative) Urine Bilirubin Negative (Negative) Urine Urobilinogen 2 mg/dL (Negative) Urine Leukocyte Esterase Negative /uL (Negative) Urine RBC 1 /hpf (0 - 4) Urine Microscopic WBC 1 /HPF (0-5) Urine Squamous Epithelial Cells Few /hpf (<5) Urine Bacteria None seen /hpf (None Seen) Urine Glucose Normal mg/dL (Normal) Test 06/03/25 14:00 06/03/25 07:40 Troponin I High Sensitivity 5 ng/L (</=34) Magnesium Level 1.8 mg/dL (1.6-2.6) Other Laboratory Tests 06/05/25 11:21 Brief Hx & Hospital Course: This is a 84 years old female with past medical history of diabetes type 2, hypertension, osteoarthritis, rheumatoid arthritis, came to emergency department because of chest pain. Her chest pain is a stabbing and sharp pain across the midline of the chest radiating to epigastric area and worsening when sitting. The patient apparently had the same complaint about a month ago and underwent a Lexiscan stress test in 04/25/2025 which is unremarkable per patient. Carotid ultrasound was done on 04/17/2025 also reportedly unremarkable. This time Dr. Jean see the patient. He did the 2D echo which showed:Left ventricle: Left ventricle is normal sized with normal systolic function. LVEF was around 65%. Diastolic function was considered normal for age. There was no wall motion abnormality. Right ventricle was normal sized with normal systolic function. Both atria were normal sized. Aortic valve was trileaflet. There was no aortic insufficiency/stenosis. There was trace mitral/tricuspid regurgitation. There was no pulmonary valve insufficiency. Right ventricular systolic pressure was assessed at 31 mm Hg which is considered normal. There was no pericardial effusion. Because of the patient's dizziness he recommend Neurology consult. Dr. Nino see the patient and did an EEG and MRI of the brain. They both showed no acute process, no stenosis. MRI brain: No acute infarct, intracranial hemorrhage, mass effect, or hydrocephalus. Moderate periventricular and subcortical T2/FLAIR white matter hyperintensities, nonspecific but most likely reflecting sequelae of chronic microvascular ischemic changes although other etiologies are not excluded. The patient also had possible allergic reaction with itching all over her body and was given Solu-Medrol in the ER. The patient did not complain of any itching when I see her. So today I am going to discharge her home. Advised her to follow up with primary care physician 1-2 weeks. Follow up with her product test engineer per schedule. Activity as tolerated. Diet low-salt low-cholesterol 2000 ADA calorie diet. Physical exam: HEENT: Normocephalic atraumatic pupils equal react to light and accommodation. Extraocular muscles intact, conjunctiva pink, oropharynx moist, no thrush, no exudate. Lymphatic: No lymphadenopathy Cardiovascular exam: S1, S2 was heard. No murmurs, rubs, gallops Lung: Clear on auscultation bilaterally, no wheeze, rale, rhonchi. GI: Abdominal soft, nondistended, nontenderness, positive bowel sounds. Extremity: No crepitus, cyanosis, edema. Pedal pulses present bilateral. Full range of motion. Skin: Normal turgor, no rash. Psych: Alert, oriented x3. Neurology: No focal deficits, cranial nerve II to XII grossly intact. This medical document was created using an electronic medical record system with [employer] direct computerized dictation system. Although this document has been carefully reviewed, there may still be some phonetic and typographical errors. These areas are purely typographical due to imperfections of the software programs, and do not reflect any compromise in the patient's medical care. Condition at Discharge: Stable Final Diagnosis/Problems List acute Chest pain r/o acs History of myocardial infarction acute allergic reaction Patient reports rash in arms, stomach, inner thighs Diabetes mellitus type 2 Monitor blood glucose during admission/sliding scale insulin Hypertension Monitor vitals and manage as needed Continue home antihypertensives Rheumatoid arthritis Osteoarthritis History of myocardial infarction Discharge Disposition: Home Discharge Instruct/Medications Scheduled Atorvastatin Calcium (Atorvastatin Calcium), 1 TAB PO DAILY, (Reported) Cetirizine Hcl (Zyrtec Allergy), 10 MG PO DAILY Cholecalciferol (Vitamin D3), 5,000 UNIT OR DAILY, (Reported) Famotidine (Pepcid Tablet), 1 TAB PO BID, (Reported) Folic Bqgv-Mbivyzjlyn-Tvuspzob (Folbic), 1 TAB PO DAILY, (Reported) Methotrexate (Methotrexate), 6 TAB PO QWEEKLY, (Reported) Methylprednisolone (Medrol Dosepak), 4 MG PO UD Prednisone (Prednisone), 20 MG PO BID Scheduled PRN Diphenhydramine-Zinc Acetate (Diphenhydramine Hcl/Zinc), 1 CRE EX Q6HP PRN Miscellaneous Medications Methotrexate (Methotrexate), 1.5 MG PO, (Reported) Discharge Statement: "Patient was advised to return to the ER or call 911 if any headaches, dizziness, shortness of breath, chest pain, abdominal pain, bleeding, fevers, or worsening of medical condition. Patient was counseled about treatment plan, medications, possible side effects, patientverbalized understanding. All questions were answered to the best of my ability. This discharge took greater then 30 minutes in planning, reviewing documentation, counseling the patient, and discussing with other team members." ASSESSMENT ASSESSMENT Assessment Date of Service: Jun 06, 2025 Billing Provider: MICHAEL DILLARD MD Common Visit Codes: 92803-VLF/OBS DISCH DAY >30min MICHAEL DILLARD MD Jun 06, 2025 11:34
--- NOTE | 2025-06-14 09:55 | ECG ---
[facility] Test Date: 2025-06-03 Test Time: 07:33:24 Pat Name: BREANA REESE Department: ED Room: [address] [place] [address] 3 Gender: F Internet [employer] Manager: DR ROSE: [id number] Requested By: JENNIFER MACDONALD Order Number: [id number] Reading MD: Tom Diane Measurements Intervals [place] Rate: 95 P: -5 WA: 125 QRS: -16 QRSD: 94 T: 79 QT: 343 QTc: 431 Interpretive Statements Sinus rhythm LVH with secondary repolarization abnormality Anterior Q waves, possibly due to LVH Electronically Signed On 06-19-2025 16:38:38 PDT by Tom Diane Please click the below link to view image of tracing.
== END 2025-06-06 17:15 | disposition home or self-care (01) | DRG 311 ==
LOC: ER 07:35 → OVERFLOW 10:43 → TELE-EAST 13:07
PROVIDERS: ADMIT Internal Medicine; ATTEND Internal Medicine
DX: I24.9 Acute ischemic heart disease, unspecified (principal); L03.818 Cellulitis of other sites; D75.89 Other specified diseases of blood and blood-forming organs; F41.9 Anxiety disorder, unspecified; I95.1 Orthostatic hypotension; T78.49XA Other allergy, initial encounter; R56.9 Unspecified convulsions; M06.9 Rheumatoid arthritis, unspecified; I25.10 Atherosclerotic heart disease of native coronary artery without angina pectoris; I10 Essential (primary) hypertension; E11.9 Type 2 diabetes mellitus without complications; E78.5 Hyperlipidemia, unspecified; Z96.659 Presence of unspecified artificial knee joint; Z88.5 Allergy status to narcotic agent; Z90.49 Acquired absence of other specified parts of digestive tract; I25.2 Old myocardial infarction; Z90.710 Acquired absence of both cervix and uterus; Z85.028 Personal history of other malignant neoplasm of stomach; Z83.511 Family history of glaucoma; Z83.3 Family history of diabetes mellitus; Z80.0 Family history of malignant neoplasm of digestive organs; Z85.89 Personal history of malignant neoplasm of other organs and systems; X58.XXXA Exposure to other specified factors, initial encounter; Z79.899 Other long term (current) drug therapy
CPT/HCPCS: 36415; 70450; 70551; 71045; 80048; 80053; 81001; 82607; 82746; 82962; 83735; 84443; 84484; 85025; 93005; 93306; 93886; 95819; 96365; 96375; G0378; J1815; J2470; J3490

== ENCOUNTER 2025-08-04 06:02 | Emergency (ER) | payer OTHER ==
[~2025-08-04] VITALS: Ht 152.4 cm; Wt 73.6 kg
[~2025-08-04 06:02] MED LIST changes: +ATOR10TA52 PO; +CHOL20007 OR; +FAMO20TA10 PO; +FOLITAB22 PO
[2025-08-04 07:05] LABS: Hematocrit 41.0 % (36.0-46.0); Hemoglobin 14.1 g/dL (12.2-16.2); Mean Corpuscular Hemoglobin 34.1 pg (28.0-32.0); Mean Corpuscular Volume 98.9 fL (80.0-100.0); Nucleated Red Blood Cells % 0.2 %
[2025-08-04 07:11] LABS: Chloride 105 mmol/L (98-107); Potassium 3.6 mmol/L (3.5-5.1); Sodium 137 mmol/L (136-145)
[2025-08-04 07:12] LABS: Anion Gap 9 (5-15); Carbon Dioxide 23 mmol/L (20-31)
--- NOTE | 2025-08-04 07:12 | ED.PDOC ---
Back pain HPI HPI Comments A 84 YEAR OLD FEMALE PRESENTS TO THE ED WITH COMPLAINT OF GENERALIZED BODY AND JOINT PAIN. PATIENT STATES SHE HAS A HISTORY OF RHEUMATOID ARTHRITIS AND HAS BEEN EXPERIENCING GENERALIZED BODY ACHES FEELING PAIN FOR THE PAST 2 DAYS. PATIENT NOTES HER PAIN IS WORSE IN HER HANDS, SHOULDERS, AND ARMS. PATIENT NOTES THAT SHE RAN OUT OF HER METHOTREXATE MEDICATION FOR HER RHEUMATOID ARTHRITIS AND WOULD LIKE A REFILL FOR THIS MEDICATION. PATIENT DENIES FEVER, CHILLS, SHORTNESS OF BREATH, CHEST PAIN, ABDOMINAL PAIN, NAUSEA, VOMITING, HEADACHE, OR OTHER COMPLAINTS. NO OTHER SYMPTOMS OR MODIFYING FACTORS AT THIS TIME. PATIENT IS ALERT, ORIENTED X 4, AND HAS STEADY GAIT. Chief Complaint: Body Pain Time Seen by MD: 06:20 Primary Care Provider: BECKA Reviewed Notes: Nurses Notes, Medications, Allergies Allergies: Coded Allergies: Codeine (Verified Allergy, Unknown, 04/23/19) Home Meds Active Scripts Methylprednisolone (Medrol Dosepak) 4 Mg Shar, 4 MG PO UD, #21 TAB UAD Prov:OLVIN GARIBAY 08/04/25 Methotrexate (Methotrexate) 2.5 Mg Tab, 6 TAB PO QWEEKLY, #24 TAB Prov:OLVIN GARIBAY 08/04/25 Prednisone (Prednisone) 10 Mg Shar, 20 MG PO BID for 5 Days, #20 TAB Prov:ANITA FARLEY MD 02/02/25 Diphenhydramine-Zinc Acetate (DIPHENHYDRAMINE HCL/ZINC) 1 Cre Cre, 1 CRE EX Q6HP PRN for 7 Days, #1 CRE Prov:RICHELLE JIN RESIDENT 10/16/24 Cetirizine Hcl (Zyrtec Allergy) 10 Mg Cap, 10 MG PO DAILY for 7 Days, #7 CAP Prov:RICHELLE JIN RESIDENT 10/16/24 Methylprednisolone (Medrol Dosepak) 4 Mg Shar, 4 MG PO UD, #21 TAB UAD Prov:RICHELLE JIN RESIDENT 10/16/24 Reported Medications Folic Ljje-Whrkijdqxo-Aekpinfk (Folbic) Tab, 1 TAB PO DAILY, #90 TAB 1 Refill 06/03/25 Famotidine (PEPCID TABLET) 20 Mg Tb, 1 TAB PO BID, #60 TAB 5 Refills 06/03/25 Atorvastatin Calcium (ATORVASTATIN CALCIUM) 10 Mg Tab, 1 TAB PO DAILY, #30 TAB 5 Refills 06/03/25 Cholecalciferol (VITAMIN D3) 2,000 Unit Tab, 5000 UNIT OR DAILY, TAB 06/03/25 Methotrexate (Methotrexate) 2.5 Mg Tab, 1.5 MG PO, MG 10/14/24 Information Source: Patient Mode of Arrival: Ambulatory Timing: Days Duration: Since onset, Days Location of Back pain: Other (BODY JOINTS PAIN. ) Severity: Moderate Quality: Aching, Cramping Onset: Spontaneous History of: None Modifying Factors: Movement Associated signs and symptoms: None Past Medical History PAST MEDICAL HISTORY: Arthritis, DM, HTN Past Medical History (Other): RA Surgical History: Denies all surgeries SUSTAINABLE SYSTEMS ANALYST History: Denies all SUSTAINABLE SYSTEMS ANALYST Hx Family History Family History: Reviewed,noncontributory to illness Social History Smoker: Non-Smoker Alcohol: Denies ETOH Use Drugs: Denies Drug Use Lives In: Home Constitutional: denies: chills, diaphoresis, fatigue, fever, malaise, sweats, weakness, others EENTM: denies: blurred vision, double vision, ear bleeding, ear discharge, ear drainage, ear pain, ear ringing, eye pain, eye redness, hearing loss, mouth pain, mouth swelling, nasal discharge, nose bleeding, nose congestion, nose pain, photophobia, tearing, throat pain, throat swelling, voice changes, others Respiratory: denies: cough, hemoptysis, orthopnea, SOB at rest, shortness of breath, SOB with excertion, stridor, wheezing, others Cardiovascular: denies: chest pain, dizzy spells, diaphoresis, Dyspnea on exertion, edema, irregular heart beat, left arm pain, lightheadedness, palpitations, PND, syncope, others Gastrointestinal: denies: abdomen distended, abdominal pain, blood streaked bowels, constipated, diarrhea, dysphagia, difficulty swallowing, hematemesis, melena, nausea, poor appetite, poor fluid intake, rectal bleeding, rectal pain, vomiting, others Genitourinary: denies: abnormal vagina bleeding, burning, dyspareunia, dysuria, flank pain, frequency, hematuria, incontinence, pain, , vagina discharge, urgency, others Neurological: denies: dizziness, fainting, headache, left sided numbness, left sided weakness, numbness, paresthesia, pre-existing deficit, right sided numbness, right sided weakness, seizure, speech problems, tingling, tremors, weakness, others Musculoskeletal: reports: joint pain, muscle pain; denies: back pain, gout, joint swelling, muscle stiffness, neck pain, others Integumetry: denies: bruises, change in color, change in hair/nails, dryness, laceration, lesions, lumps, rash, wounds, others Allergic/Immunocompromised: denies: Difficulty Healing, Frequent Infections, Hives, Itching, others Hematologic/Lymphatic: denies: anemia, blood clots, easy bleeding, easy bruising, swollen glands, others Endocrine: denies: excessive hunger, excessive sweating, excessive thirst, excessive urination, flushing, intolerance to cold, intolerance to heat, unexplained weight gain, unexplained weight loss, others Psychiatric: denies: anxiety, bipolar disorder, depression, hopeless, panic disorder, schizophrenia, sleepless, suicidal, others All Other Systems: Reviewed and Negative Physical Exam General Appearance: No Apparent Distress, Normal HEENT: Normal ENT Inspection, PERRL/EOMI, Pharynx Normal, TMs Normal Neck: Full Range of Motion, Non-Tender, Normal, Normal Inspection Respiratory: Chest Non-Tender, Lungs Clear, No Accessory Muscle Use, No Respiratory Distress, Normal Breath Sounds Cardiovascular: No Edema, No JVD, No Murmur, No Gallop, Normal Peripheral Pulses, Regular Rate/Rhythm Breast Exam: Deferred Gastrointestinal: No Organomegaly, Non Tender, No Pulsatile Mass, Normal Bowel Sounds, Soft Genitalia: Deferred Pelvic: Deferred Rectal: Deferred Extremities: No calf tenderness, Normal capillary refill, Normal range of motion, No pedal edema, Swelling (NO ERYTHEMA AND SWELLING OF KNEES AND SHOULDERS. ), Tender (BILATERAL HANDS, KNEES AND SHOULDER, +DEFORMITY BILATERAL HAND DUE TO RA. 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 Was a procedure done?: No Back Pain Differential Dx Differential Diagnosis: DJD, Musculoskeletal Pain, Strain Other Differential Diagnosis HISTORY OF RHEUMATOID ARTHRITIS X-Ray, Labs, Meds, VS Vital Signs Date Time Temp Pulse Resp B/P (MAP) Pulse Ox O2 Delivery O2 Flow Rate FiO2 08/04/25 06:02 97.3 99 20 131/72 94 97.3 Lab Test 08/04/25 07:10 08/04/25 06:35 Range/Units Urine Color Light-yellow Yellow Urine Clarity Clear Clear Urine pH 6.5 5.0-9.0 Urine Specific [place] 1.005 1.001-1.035 Urine Protein Negative Negative Urine Ketones Negative Negative Urine Blood Negative Negative /uL Urine Nitrite Negative Negative Urine Bilirubin Negative Negative Urine Urobilinogen Normal Negative mg/dL Urine Leukocyte Esterase Negative Negative /uL Urine RBC 1 0 - 4 /hpf Urine Microscopic WBC 1 0-5 /HPF Urine Squamous Epithelial Cells Few <5 /hpf Urine Bacteria None seen None Seen /hpf Urine Glucose 4+ H Normal mg/dL White Blood Count 5.9 4.4-10.8 10^3/uL Red Blood Count 4.14 4.0-5.20 10^6/uL Hemoglobin 14.1 12.2-16.2 g/dL Hematocrit 41.0 36.0-46.0 % Mean Corpuscular Volume 98.9 80.0-100.0 fL Mean Corpuscular Hemoglobin 34.1 H 28.0-32.0 pg Mean Corpuscular Hemoglobin Concent 34.5 32.0-36.0 g/dL Red Cell Distribution Width 14.5 H 11.8-14.3 % Platelet Count 164 140-450 10^3/uL Mean Platelet Volume 8.3 6.9-10.8 fL Neutrophils (%) (Auto) 61.9 37.0-80.0 % Lymphocytes (%) (Auto) 21.6 10.0-50.0 % Monocytes (%) (Auto) 10.8 0.0-12.0 % Eosinophils (%) (Auto) 5.1 0.0-7.0 % Basophils (%) (Auto) 0.6 0.0-2.0 % Neutrophils # (Auto) 3.7 1.6-8.6 10 ^3/uL Lymphocytes # (Auto) 1.3 0.4-5.4 10 ^3/uL Monocytes # (Auto) 0.6 0-1.3 10 ^3/uL Eosinophils # (Auto) 0.3 0-0.8 10 ^3/uL Basophils # (Auto) 0 0-0.2 10 ^3/uL Nucleated Red Blood Cells 0.2 % Erythrocyte Sedimentation Rate Pending Sodium Level 137 136-145 mmol/L Potassium Level 3.6 3.5-5.1 mmol/L Chloride Level 105 98-107 mmol/L Carbon Dioxide Level 23 20-31 mmol/L Anion Gap 9 5-15 Blood Urea Nitrogen < 5 L 9-23 mg/dL Creatinine 0.63 0.550-1.02 mg/dL Glomerular Filtration Rate Calc 88 >90 mL/min BUN/Creatinine Ratio 7.9 L 10.0-20.0 Serum Glucose 91 74-106 mg/dL Calcium Level 8.5 L 8.7-10.4 mg/dL Current Medications Medications (Trade) Dose Ordered Sig/Teresa Route Start Time Stop Time Status Last Admin Ketorolac Tromethamine (Toradol Injection) 30 mg ONCE ONCE IM 08/04/25 08:00 08/04/25 08:01 DC 08/04/25 08:13 Methylprednisolone Sodium Succinate (Solu Medrol) 125 mg ONCE ONCE IM 08/04/25 08:00 08/04/25 08:01 DC 08/04/25 08:14 X-Ray, Labs, Meds, VS Comment EXTERNAL MEDICAL RECORDS REVIEWED: [NONE] INDEPENDENT HISTORIANS: [NONE] SOCIAL DETERMINANTS OF HEALTH: [NONE] LABS ORDERED: CBC, BMP, ESR, UA REVIEWED AND INTERPRETED RESULTS: NORMAL IMAGING ORDERED: NONE TREATMENTS ORDERED: TORADOL 30 MG IM, SOLU-MEDROL 125 MG IM PROCEDURES PERFORMED: NONE CRITICAL CARE TIME: NONE I HAVE DISCUSSED THE PATIENT WITH THE ATTENDING PHYSICIAN DR. MACDONALD AND HE AGREES WITH THE PATIENT'S PLAN OF CARE AND DISPOSITION. BASED ON HISTORY OF PRESENT ILLNESS, AND PHYSICAL EXAM, PATIENT WILL BE DISCHARGED HOME. DISCUSSED PLAN FOR DISCHARGE HOME WITH RX [MEDROL DOSE PACK AND METHOTREXATE]. MEDICATION WARNINGS GIVEN. SHARED DECISION MAKING: DISCUSSED WITH PATIENT THAT THEIR WORKUP WAS NORMAL. PATIENT INSTRUCTED TO FOLLOW UP WITH PRIMARY CARE PROVIDER IN 1-2 DAYS FOR RE- EVALUATION OF SYMPTOMS. PATIENT VERBALIZES UNDERSTANDING TO RETURN TO ED FOR NEW OR WORSENING SYMPTOMS OR IF FOLLOW UP WITH PCP CANNOT BE OBTAINED. PATIENT FEELS COMFORTABLE GOING HOME AT THIS TIME. ALL QUESTIONS ADDRESSED AT TIME OF DISCHARGE. Time of 1ST Reevaluation: 08:40 Reevaluation 1ST: Improved Patient Education/Counseling: Diagnosis, Treatment, Need For Follow Up Family Education/Counseling: Diagnosis, Treatment, Need For Follow Up Medical Screening: No EMC Exist At This Time SEPSIS Sepsis Screen Date sepsis recognized/suspect: Aug 04, 2025 Time Sepsis recognized/suspect: 06 Recent Procedure: No On Antibiotic Therapy: No Respiratory Rate >20: No Heart Rate >90: Yes Temp<36 C (96.8 F) or >38.3 C: No SBP <90 or MAP <65 mmHG: No New Acute Mental Status Change: No Is the patient on CPAP, BIPAP,: No Physician Orders Erythrocyte Sedimentation Rate (08/04/25 07:05) Vital Signs Date Time Temp Pulse Resp B/P (MAP) Pulse Ox O2 Delivery O2 Flow Rate FiO2 08/04/25 06:02 97.3 99 20 131/72 94 97.3 Laboratory Tests Test 08/04/25 06:35 White Blood Count 5.9 10^3/uL (4.4-10.8) Medications Medications Dose Ordered Sig/Teresa Route Start Time Stop Time Status Last Admin Dose Admin Ketorolac Tromethamine 30 mg ONCE ONCE IM 08/04/25 08:00 08/04/25 08:01 DC 08/04/25 08:13 Methylprednisolone Sodium Succinate 125 mg ONCE ONCE IM 08/04/25 08:00 08/04/25 08:01 DC 08/04/25 08:14 Departure 1 Departure Time of Disposition: 08:40 Impression: Primary Impression: Rheumatoid arthritis flare Additional Impression: Encounter for medication refill Disposition: HOME / SELF CARE / HOMELESS Condition: Stable Additional Instructions: FOLLOW-UP WITH PCP IN 1 TO 2 DAYS. TAKE MEDICATIONS PRESCRIBED. RETURN TO ED FOR ANY NEW OR WORSENING SYMPTOMS. e-Prescriptions Methylprednisolone (Medrol Dosepak) 4 Mg Shar 4 MG PO UD, #21 TAB UAD Prov: OLVIN GARIBAY 08/04/25 Methotrexate (Methotrexate) 2.5 Mg Tab 6 TAB PO QWEEKLY, #24 TAB Prov: OLVIN GARIBAY 08/04/25 Discharged With: Self, Relative Critical Care Note Critical Care Time?: No Stability Stability form required: No I personally scribed for OLVIN GARIBAY ([email or web address]) on 08/04/25 at 07:12. Electronically submitted by Silver Quiroz ([email or web address]). I personally scribed for OLVIN GARIBAY ([email or web address]) on 08/04/25 at 07:56. Electronically submitted by Silver Quiroz ([email or web address]). I personally scribed for OLVIN GARIBAY ([email or web address]) on 08/04/25 at 08:25. Electronically submitted by Silver Quiroz ([employer]). OLVIN GARIBAY Aug 04, 2025 07:12
[2025-08-04 07:17] LABS: Glucose 91 mg/dL (74-106)
[2025-08-04 07:26] LABS: BUN/Creatinine Ratio 7.9 (10.0-20.0); Blood Urea Nitrogen < 5 mg/dL (9-23); Calcium 8.5 mg/dL (8.7-10.4)
[2025-08-04 08:11] LABS: Urine Protein, UAD Negative (Negative)
[2025-08-04] MEDS: KETOROLAC TROMETH 60MG/2ML VIAL IM ONE (08:13)
[2025-08-04] MEDS: methylPREDNISolone SOD SUCC 125 MG/2 ML VL IM ONE (08:14)
[2025-08-04] MEDS ORDERED: METH4PAK PO (08:24)
[2025-08-04] MEDS ORDERED: METH2.5T PO (08:24)
[2025-08-04 08:35] VITALS: BP 143/75; PULSE 96; RESP 15; TEMP 98.1; O2SAT 95
== END 2025-08-04 08:37 | disposition home or self-care (01) ==
LOC: ER 06:02
DX: M06.9 Rheumatoid arthritis, unspecified (principal); Z76.0 Encounter for issue of repeat prescription; I10 Essential (primary) hypertension; E11.9 Type 2 diabetes mellitus without complications; Z79.52 Long term (current) use of systemic steroids; Z79.899 Other long term (current) drug therapy; Z88.5 Allergy status to narcotic agent
CPT/HCPCS: 36415; 80048; 81001; 85025; 85652; 96372; 99284; J1885; J2919

== ENCOUNTER 2025-08-23 16:06 | Inpatient (IN) | payer OTHER ==
[~2025-08-23] VITALS: Ht 152.4 cm; Wt 78.9 kg
[2025-08-23] MEDS: HYDROcodone-ACET 5/325MG TAB PO ONE (16:30)
[2025-08-23 16:47] LABS: Hematocrit 39.7 % (36.0-46.0); Hemoglobin 13.6 g/dL (12.2-16.2); Mean Corpuscular Hemoglobin 33.6 pg (28.0-32.0); Mean Corpuscular Volume 98.1 fL (80.0-100.0); Nucleated Red Blood Cells % 0.0 %
[2025-08-23 17:04] LABS: Alanine Aminotransferase 37 U/L (7-40); Albumin 3.5 g/dL (3.2-4.8); Alkaline Phosphatase 88 U/L (46-116); Anion Gap 10 (5-15); BUN/Creatinine Ratio 9.1 (10.0-20.0); Bilirubin, Total 0.6 mg/dL (0.2-1.0); Blood Urea Nitrogen 6 mg/dL (9-23); Calcium 9.2 mg/dL (8.7-10.4); Carbon Dioxide 24 mmol/L (20-31); Chloride 100 mmol/L (98-107); Glucose 98 mg/dL (74-106); Lipase 35 U/L (12-53); Potassium 4.1 mmol/L (3.5-5.1); Sodium 134 mmol/L (136-145); Total Protein 7.1 g/dL (5.7-8.2)
--- NOTE | 2025-08-23 17:06 | ED.PDOC ---
History of Present Illness HPI Comments 84-year-old female presents to the ER with a chief complaint of right upper quadrant abdominal pain radiating to right flank region. Patient reports on having right upper quadrant pain which radiates to the right flank region and epigastric area for the past week. Patient states on the pain being on and off and denies any history of gallbladder, liver or kidney concerns. Denies any other symptoms at this time. Denies chills, fever, N/V/D, SOB, CP. No other associated symptoms, modifiers, recent injuries or sick contacts present at this time. Patient was tachycardic at arrival. Chief Complaint: Abdominal Pain Time Seen by MD: 17:00 Primary Care Provider: BECKA Reviewed Notes: Nurses Notes, Medications, Allergies Allergies: Coded Allergies: Codeine (Verified Allergy, Unknown, 04/23/19) Home Meds Active Scripts Methylprednisolone (Medrol Dosepak) 4 Mg Shar, 4 MG PO UD, #21 TAB UAD Prov:OLVIN GARIBAY 08/04/25 Methotrexate (Methotrexate) 2.5 Mg Tab, 6 TAB PO QWEEKLY, #24 TAB Prov:OLVIN GARIBAY 08/04/25 Prednisone (Prednisone) 10 Mg Shar, 20 MG PO BID for 5 Days, #20 TAB Prov:ANITA FARLEY MD 02/02/25 Diphenhydramine-Zinc Acetate (DIPHENHYDRAMINE HCL/ZINC) 1 Cre Cre, 1 CRE EX Q6HP PRN for 7 Days, #1 CRE Prov:RICHELLE JIN RESIDENT 10/16/24 Cetirizine Hcl (Zyrtec Allergy) 10 Mg Cap, 10 MG PO DAILY for 7 Days, #7 CAP Prov:RICHELLE JIN RESIDENT 10/16/24 Methylprednisolone (Medrol Dosepak) 4 Mg Shar, 4 MG PO UD, #21 TAB UAD Prov:RICHELLE JIN RESIDENT 10/16/24 Reported Medications Folic Hhui-Xygyjvxazj-Uwvixggj (Folbic) Tab, 1 TAB PO DAILY, #90 TAB 1 Refill 06/03/25 Famotidine (PEPCID TABLET) 20 Mg Tb, 1 TAB PO BID, #60 TAB 5 Refills 06/03/25 Atorvastatin Calcium (ATORVASTATIN CALCIUM) 10 Mg Tab, 1 TAB PO DAILY, #30 TAB 5 Refills 06/03/25 Cholecalciferol (VITAMIN D3) 2,000 Unit Tab, 5000 UNIT OR DAILY, TAB 06/03/25 Methotrexate (Methotrexate) 2.5 Mg Tab, 1.5 MG PO, MG 10/14/24 Information Source: Patient, Relative (Child) Mode of Arrival: Ambulatory Severity: Moderate Timing: Days Duration: Since onset, Days Prehospital treatment: None Past Medical History PAST MEDICAL HISTORY: Arthritis, DM, HTN Surgical History: Denies all surgeries PROJECT ARCHITECT History: Denies all PROJECT ARCHITECT Hx Family History Family History: Reviewed,noncontributory to illness, Unknown Social History Smoker: Non-Smoker Alcohol: Denies ETOH Use Drugs: Denies Drug Use Lives In: Home Constitutional: denies: chills, diaphoresis, fatigue, fever, malaise, sweats, weakness, others EENTM: denies: blurred vision, double vision, ear bleeding, ear discharge, ear drainage, ear pain, ear ringing, eye pain, eye redness, hearing loss, mouth pain, mouth swelling, nasal discharge, nose bleeding, nose congestion, nose pain, photophobia, tearing, throat pain, throat swelling, voice changes, others Respiratory: denies: cough, hemoptysis, orthopnea, SOB at rest, shortness of breath, SOB with excertion, stridor, wheezing, others Cardiovascular: denies: chest pain, dizzy spells, diaphoresis, Dyspnea on exertion, edema, irregular heart beat, left arm pain, lightheadedness, palpitations, PND, syncope, others Gastrointestinal: reports: abdominal pain; denies: abdomen distended, blood streaked bowels, constipated, diarrhea, dysphagia, difficulty swallowing, hematemesis, melena, nausea, poor appetite, poor fluid intake, rectal bleeding, rectal pain, vomiting, others Genitourinary: denies: abnormal vagina bleeding, burning, dyspareunia, dysuria, flank pain, frequency, hematuria, incontinence, pain, , vagina discharge, urgency, others Neurological: denies: dizziness, fainting, headache, left sided numbness, left sided weakness, numbness, paresthesia, pre-existing deficit, right sided numbness, right sided weakness, seizure, speech problems, tingling, tremors, weakness, others Musculoskeletal: denies: back pain, gout, joint pain, joint swelling, muscle pain, muscle stiffness, neck pain, others Integumetry: denies: bruises, change in color, change in hair/nails, dryness, laceration, lesions, lumps, rash, wounds, others Allergic/Immunocompromised: denies: Difficulty Healing, Frequent Infections, Hives, Itching, others Hematologic/Lymphatic: denies: anemia, blood clots, easy bleeding, easy br uising, swollen glands, others Endocrine: denies: excessive hunger, excessive sweating, excessive thirst, excessive urination, flushing, intolerance to cold, intolerance to heat, unexplained weight gain, unexplained weight loss, others Psychiatric: denies: anxiety, bipolar disorder, depression, hopeless, panic disorder, schizophrenia, sleepless, suicidal, others All Other Systems: Reviewed and Negative Physical Exam General Appearance: Moderate Distress (Due to right upper quadrant pain concerns.), Normal HEENT: Normal ENT Inspection, Pharynx Normal, TMs Normal Neck: Full Range of Motion, Non-Tender, Normal, Normal Inspection Respiratory: Chest Non-Tender, Lungs Clear, No Accessory Muscle Use, No Respiratory Distress, Normal Breath Sounds Cardiovascular: No Edema, No JVD, No Murmur, No Gallop, Normal Peripheral Pulses, Regular Rate/Rhythm Breast Exam: Deferred Gastrointestinal: Other (Diffuse right upper quadrant pain extending towards the right flank region. No definitive CVA tenderness. No signs of trauma.) Genitalia: Deferred Pelvic: Deferred Rectal: Deferred Extremities: No calf tenderness, Normal capillary refill, Normal inspection, Normal range of motion, Non-tender, No pedal edema Musculoskeletal : Apperance: Normal Neurologic: Alert, No Motor Deficits, Normal Affect, Normal Mood, No Sensory Deficits Cerebellar Function: NOT DONE Reflexes: NOT DONE Skin: Dry, Normal Color, Warm Lymphatic: No Adenopathy Was a procedure done? Was a procedure done?: No Differential Dx Considerations may include: Cholecystitis, hepatic steatosis, gastroenteritis, constipation, UTI, pyelonephritis, kidney stone X-Ray, Labs, Meds, VS Vital Signs Date Time Temp Pulse Resp B/P (MAP) Pulse Ox O2 Delivery O2 Flow Rate FiO2 08/23/25 16:21 94 08/23/25 16:08 97.8 106 16 138/87 96 97.8 Lab Test 08/23/25 16:38 Range/Units White Blood Count 8.2 4.4-10.8 10^3/uL Red Blood Count 4.05 4.0-5.20 10^6/uL Hemoglobin 13.6 12.2-16.2 g/dL Hematocrit 39.7 36.0-46.0 % Mean Corpuscular Volume 98.1 80.0-100.0 fL Mean Corpuscular Hemoglobin 33.6 H 28.0-32.0 pg Mean Corpuscular Hemoglobin Concent 34.3 32.0-36.0 g/dL Red Cell Distribution Width 14.3 11.8-14.3 % Platelet Count 250 140-450 10^3/uL Mean Platelet Volume 7.4 6.9-10.8 fL Neutrophils (%) (Auto) 73.7 37.0-80.0 % Lymphocytes (%) (Auto) 15.2 10.0-50.0 % Monocytes (%) (Auto) 7.4 0.0-12.0 % Eosinophils (%) (Auto) 3.3 0.0-7.0 % Basophils (%) (Auto) 0.4 0.0-2.0 % Neutrophils # (Auto) 6.0 1.6-8.6 10 ^3/uL Lymphocytes # (Auto) 1.2 0.4-5.4 10 ^3/uL Monocytes # (Auto) 0.6 0-1.3 10 ^3/uL Eosinophils # (Auto) 0.3 0-0.8 10 ^3/uL Basophils # (Auto) 0 0-0.2 10 ^3/uL Nucleated Red Blood Cells 0.0 % Sodium Level 134 L 136-145 mmol/L Potassium Level 4.1 3.5-5.1 mmol/L Chloride Level 100 98-107 mmol/L Carbon Dioxide Level 24 20-31 mmol/L Anion Gap 10 5-15 Blood Urea Nitrogen 6 L 9-23 mg/dL Creatinine 0.66 0.550-1.02 mg/dL Glomerular Filtration Rate Calc 87 >90 mL/min BUN/Creatinine Ratio 9.1 L 10.0-20.0 Serum Glucose 98 74-106 mg/dL Calcium Level 9.2 8.7-10.4 mg/dL Total Bilirubin 0.6 0.2-1.0 mg/dL Aspartate Amino Transferase (AST) 43 H 13-40 U/L Alanine Aminotransferase (ALT) 37 7-40 U/L Alkaline Phosphatase 88 46-116 U/L Troponin I High Sensitivity < 3 L </=34 ng/L Total Protein 7.1 5.7-8.2 g/dL Albumin 3.5 3.2-4.8 g/dL Lipase 35 12-53 U/L X-Ray, Labs, Meds, VS Comment All studies performed the ED were evaluated by me personally. Labs were unremarkable for any systemic concerns. EKG revealed a sinus rhythm with a rate of 94. 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 ND interval of 129 and QT interval of 344. Ultrasound of the right upper quadrant confirmed that the gallbladder was filled with echogenic debris. There was also an 18 mm shadowing gallstone. There is sonographic Patel's sign. These group findings together support a clinical diagnosis of acute cholecystitis. Fatty liver was noted as well. Patient will be admitted for surgical evaluation of an acute cholecystitis event. Pain will be managed while in the ED. Time of 1ST Reevaluation: 18:24 Reevaluation 1ST: Improved Consultation: PCP Patient Education/Counseling: Diagnosis, Treatment, Prognosis Family Education/Counseling: Diagnosis, Treatment, No Family Present SEPSIS Sepsis Screen Date sepsis recognized/suspect: Aug 23, 2025 Time Sepsis recognized/suspect: 1608 Recent Procedure: No On Antibiotic Therapy: No Respiratory Rate >20: No Heart Rate >90: Yes Temp<36 C (96.8 F) or >38.3 C: No SBP <90 or MAP <65 mmHG: No New Acute Mental Status Change: No Is the patient on CPAP, BIPAP,: No Physician Orders Troponin-I Hs (08/24/25 00:00) Troponin-I Hs (08/24/25 03:00) Urinalysis (08/23/25 16:22) Gallbladder (08/23/25 16:22) Electrocardigram (08/23/25 16:22) Vital Signs Date Time Temp Pulse Resp B/P (MAP) Pulse Ox O2 Delivery O2 Flow Rate FiO2 08/23/25 16:21 94 08/23/25 16:08 97.8 106 16 138/87 96 97.8 Laboratory Tests Test 08/23/25 16:38 White Blood Count 8.2 10^3/uL (4.4-10.8) Departure 1 Departure Time of Disposition: 18:24 Impression: Primary Impression: Cholecystitis Disposition: 09 ADMITTED INPATIENT Condition: Fair Discharged With: Self, Relative Critical Care Note Critical Care Time?: No Stability Stability form required: No Heart Score Heart Score: Heart Score Response (Comments) Value History Slightly Suspicious 0 EKG Normal 0 Age >65 2 Risk Factors 1 or 2 risk factors 1 Troponin Normal limit 0 Total 3 I personally scribed for GINNA WANG PAC ([email or web address]) on 08/23/25 at 17:06. Electronically submitted by Slava Boswell ([email or web address]). GINNA WANG PAC Aug 23, 2025 17:06
--- NOTE | 2025-08-23 17:47 | DVH ---
ULTRASOUND ABDOMEN, LIMITED RIGHT UPPER QUADRANT: REASON FOR EXAM: Right upper quadrant pain X5 days TECHNIQUE: Real-time sector scans in the transverse and longitudinal planes were obtained through th e right upper quadrant of the abdomen. FINDINGS: The liver is of normal size and contour. The liver is diffusely echogenic. There is hepato petal flow in the portal vein. There is an anechoic 5.6 cm cyst in the right lobe of the liver. There is no intrahepatic nor extrahepatic biliary ductal dilatation. The common bile duct measures 6 mm. The gallbladder is filled with echogenic debris. The gallbladder wall is nearly isoechoic to the de bris and gallbladder wall thickening is difficult to assess. There is an 18 mm shadowing stone within the gallbladder neck. There is a sonographic Patel's sign. The visualized portion of the pancreas is unremarkable. The right kidney measures 9.3 cm. No hydronephrosis or nephrolithiasis is identified. There is no e vidence of right renal mass or cyst. There is a nonshadowing linear calcification within the superior pole of the right kidney, likely a vascular calcification. The visualized portions of the abdominal aorta demonstrate no evidence of aneurysmal dilatation. The visualized inferior vena cava is unremarkable. There is no free fluid identified in the right upper quadrant. IMPRESSION: The gallbladder is filled with echogenic debris. There is also an 18 mm shadowing gallstone. There i s a sonographic patel's sign. These findings support a clinical diagnosis of acute cholecystitis. The liver is diffusely echogenic which may be secondary to steatosis or another diffuse hepatic proce ss. Correlate clinically and with liver function tests.
[2025-08-23] MEDS: ACETAMINOPHEN 500 MG TAB or CAP PO ONE (20:20)
[2025-08-23] MEDS ORDERED: HYDROmorphone HCL 2 MG/ML VL/or syr IV PRN (22:30)
[2025-08-23] MEDS ORDERED: ONDANSETRON HCL 4 MG/2 ML VIAL IV PRN (22:30)
--- NOTE | 2025-08-23 22:31 | DVHHP2 ---
History of Present Illness Reason for Visit: Abdominal pain History of Present Illness 84-year-old female presents for evaluation of abdominal pain. Patient endorses a seven day history of sharp right upper quadrant abdominal pain that radiates to her back. No nausea or vomiting. No fever or chills. No other acute complaints reported. Review of Systems Review of Systems Review of systems are currently negative otherwise addressed in HPI. Allergies: Coded Allergies: Codeine (Verified Allergy, Unknown, 04/23/19) Medications Current Medications Medications Dose Ordered Sig/Teresa Route Start Time Stop Time Status Last Admin Dose Admin Piperacillin Sod/ Tazobactam Sod 100 ml @ 25 mls/hr Q8HR IV 08/24/25 06:00 UNV Pantoprazole Sodium 40 mg DAILY IV 08/24/25 10:00 UNV Ondansetron HCl 4 mg Q4HP PRN IV 08/23/25 22:30 UNV Hydromorphone HCl 0.25 mg Q4HPRN PRN IV 08/23/25 22:30 UNV Exam Vital Signs Vital Signs Date Time Temp Pulse Resp B/P (MAP) Pulse Ox O2 Delivery O2 Flow Rate FiO2 08/23/25 20:38 98.0 56 16 134/82 (99) 98 98.0 Exam Gen: 84-year-old female in mild distress. Skin: Warm, dry, normal color and texture, no rash. HEENT: Normocephalic atraumatic, mucous membranes moist and pink. Neck: Cervical and supraclavicular nodes normal without enlargement, trachea is midline, thyroid gland is normal without masses. Pulmonary: Clear to auscultation and percussion bilaterally. Cardiac: Regular rate and rhythm. No murmur Abdomen: Soft, right upper quadrant tenderness, nondistended, bowel sounds present all 4 quadrants, no guarding, no rigidity, no organomegaly. Extremities: No cyanosis, clubbing, no edema Neuro: Cranial nerves II through XII grossly intact, normal affect and speech, no focal motor deficits. Labs/Xrays ORDERING PHYSICIAN: GINNA WANG PAC PROCEDURE(s): GBUS - GALLBLADDER REASON: Right upper quadrant pain ORDER NUMBER(s): [id number], ACCESSION NUMBER(s): [id number] ULTRASOUND ABDOMEN, LIMITED RIGHT UPPER QUADRANT: REASON FOR EXAM: Right upper quadrant pain X5 days TECHNIQUE: Real-time sector scans in the transverse and longitudinal planes were obtained through the right upper quadrant of the abdomen. FINDINGS: The liver is of normal size and contour. The liver is diffusely echogenic. There is hepatopetal flow in the portal vein. There is an anechoic 5.6 cm cyst in the right lobe of the liver. There is no intrahepatic nor extrahepatic biliary ductal dilatation. The common bile duct measures 6 mm. The gallbladder is filled with echogenic debris. The gallbladder wall is nearly isoechoic to the debris and gallbladder wall thickening is difficult to assess. There is an 18 mm shadowing stone within the gallbladder neck. There is a sonographic Patel's sign. The visualized portion of the pancreas is unremarkable. The right kidney measures 9.3 cm. No hydronephrosis or nephrolithiasis is identified. There is no evidence of right renal mass or cyst. There is a no nshadowing linear calcification within the superior pole of the right kidney, likely a vascular calcification. The visualized portions of the abdominal aorta demonstrate no evidence of aneurysmal dilatation. The visualized inferior vena cava is unremarkable. There is no free fluid identified in the right upper quadrant. IMPRESSION: The gallbladder is filled with echogenic debris. There is also an 18 mm shadowing gallstone. There is a sonographic patel's sign. These findings support a clinical diagnosis of acute cholecystitis. The liver is diffusely echogenic which may be secondary to steatosis or another diffuse hepatic process. Correlate clinically and with liver function tests. Labs Test 08/23/25 16:38 Range/Units White Blood Count 8.2 4.4-10.8 10^3/uL Red Blood Count 4.05 4.0-5.20 10^6/uL Hemoglobin 13.6 12.2-16.2 g/dL Hematocrit 39.7 36.0-46.0 % Mean Corpuscular Volume 98.1 80.0-100.0 fL Mean Corpuscular Hemoglobin 33.6 H 28.0-32.0 pg Mean Corpuscular Hemoglobin Concent 34.3 32.0-36.0 g/dL Red Cell Distribution Width 14.3 11.8-14.3 % Platelet Count 250 140-450 10^3/uL Mean Platelet Volume 7.4 6.9-10.8 fL Neutrophils (%) (Auto) 73.7 37.0-80.0 % Lymphocytes (%) (Auto) 15.2 10.0-50.0 % Monocytes (%) (Auto) 7.4 0.0-12.0 % Eosinophils (%) (Auto) 3.3 0.0-7.0 % Basophils (%) (Auto) 0.4 0.0-2.0 % Neutrophils # (Auto) 6.0 1.6-8.6 10 ^3/uL Lymphocytes # (Auto) 1.2 0.4-5.4 10 ^3/uL Monocytes # (Auto) 0.6 0-1.3 10 ^3/uL Eosinophils # (Auto) 0.3 0-0.8 10 ^3/uL Basophils # (Auto) 0 0-0.2 10 ^3/uL Nucleated Red Blood Cells 0.0 % Sodium Level 134 L 136-145 mmol/L Potassium Level 4.1 3.5-5.1 mmol/L Chloride Level 100 98-107 mmol/L Carbon Dioxide Level 24 20-31 mmol/L Anion Gap 10 5-15 Blood Urea Nitrogen 6 L 9-23 mg/dL Creatinine 0.66 0.550-1.02 mg/dL Glomerular Filtration Rate Calc 87 >90 mL/min BUN/Creatinine Ratio 9.1 L 10.0-20.0 Serum Glucose 98 74-106 mg/dL Calcium Level 9.2 8.7-10.4 mg/dL Total Bilirubin 0.6 0.2-1.0 mg/dL Aspartate Amino Transferase (AST) 43 H 13-40 U/L Alanine Aminotransferase (ALT) 37 7-40 U/L Alkaline Phosphatase 88 46-116 U/L Troponin I High Sensitivity < 3 L </=34 ng/L Total Protein 7.1 5.7-8.2 g/dL Albumin 3.5 3.2-4.8 g/dL Lipase 35 12-53 U/L SEPSIS Sepsis Screen Date sepsis recognized/suspect: Aug 23, 2025 Time Sepsis recognized/suspect: 8 Recent Procedure: No On Antibiotic Therapy: No Respiratory Rate >20: No Heart Rate >90: Yes Temp<36 C (96.8 F) or >38.3 C: No SBP <90 or MAP <65 mmHG: No New Acute Mental Status Change: No Is the patient on CPAP, BIPAP,: No Physician Orders Troponin-I Hs (08/24/25 00:00) Troponin-I Hs (08/24/25 03:00) Urinalysis (08/23/25 16:22) Gallbladder (08/23/25 16:22) Electrocardigram (08/23/25 16:22) Admit (08/23/25 21:40) * Surgical Consult (08/23/25 ) Piperacillin-Tazob 3.375gm (Zosyn 3.375g (08/24/25 06:00) Piperacillin-Tazob 3.375gm (Zosyn 3.375g (08/23/25 22:30) Pantoprazole (Protonix) (08/23/25 22:30) Pantoprazole (Protonix) (08/24/25 10:00) Sodium Chloride 0.9% (08/23/25 22:30) PTPTT (08/23/25 22:21) Type And Screen (08/23/25 22:21) Chest Xray 1 View (08/23/25 22:21) Ondansetron Hcl (Zofran) (08/23/25 22:30) Complete Blood Count (08/24/25 04:00) Comprehensive Metabolic Panel (08/24/25 04:00) Npo (Nothing By Mouth) Diet (08/24/25 Breakfast) Condition: Stable (08/23/25 22:21) Bedrest With Bathroom Privileg (08/23/25 22:21) Hydromorphone Injection (Dilaudid Inject (08/23/25 22:30) Vital Signs Date Time Temp Pulse Resp B/P (MAP) Pulse Ox O2 Delivery O2 Flow Rate FiO2 08/23/25 20:38 98.0 56 16 134/82 (99) 98 98.0 08/23/25 16:21 94 08/23/25 16:08 97.8 106 16 138/87 96 97.8 Laboratory Tests Test 08/23/25 16:38 White Blood Count 8.2 10^3/uL (4.4-10.8) Medications Medications Dose Ordered Sig/Teresa Route Start Time Stop Time Status Last Admin Dose Admin Acetaminophen 1,000 mg ONCE ONCE PO 08/23/25 20:15 08/23/25 20:16 DC 08/23/25 20:20 1,000 MG Assessment/Plan Assessment/Plan Assessment Acute abdominal pain Acute cholecystitis Plan Admit the patient to [facility] to the hospitalist Surgical consultation Pain management Zosyn Maintenance IV fluids Continue treatment per orders. Plan discussed with: Patient My Orders Orders - MY SIMS Procedure Category Date Status Time Admit ADMIT 08/23/25 Transmitted 21:40 * Surgical Consult CONS 08/23/25 Transmitted Piperacillin-Tazob PHA 08/24/25 Logged 3.375gm (Zosyn 3.375g 06:00 Piperacillin-Tazob PHA 08/23/25 Logged 3.375gm (Zosyn 3.375g 22:30 Pantoprazole PHA 08/23/25 Logged (Protonix) 22:30 Pantoprazole PHA 08/24/25 Logged (Protonix) 10:00 Sodium Chloride 0.9% PHA 08/23/25 Logged 22:30 PTPTT LAB 08/23/25 Logged 22:21 Type And Screen BBK 08/23/25 Logged 22:21 Chest Xray 1 View XY 08/23/25 Logged 22:21 Ondansetron Hcl PHA 08/23/25 Logged (Zofran) 22:30 Complete Blood Count LAB 08/24/25 Verified 04:00 Comprehensive LAB 08/24/25 Verified Metabolic Panel 04:00 Npo (Nothing By DIET 08/24/25 Transmitted Mouth) Diet Breakfast Condition: Stable ANDREW 08/23/25 In Process 22:21 Bedrest With Bathroom ANDREW 08/23/25 In Process Privileg 22:21 Hydromorphone PHA 08/23/25 Logged Injection (Dilaudid 22:30 Date of Service: Aug 23, 2025 Billing Provider: MY SIMS Common Visit Codes: [id number] INP/OBS CARE (HIGH) MY SIMS Aug 23, 2025 22:31
--- NOTE | 2025-08-23 23:06 | DVH ---
EXAM: XY CHEST XRAY 1 VIEW CLINICAL HISTORY: preop TECHNIQUE: Single AP view of the chest WID: COMPARISON: XY CHEST PORTABLE on DOS: 06/03/25, Lines and tubes: None Chest: The heart size and pulmonary vasculature is within normal limits. Diffuse interstitial prominence of the lungs. No new airspace consolidation, pleural effusion, or pne umothorax. Unchanged area of focal pleural thickening along the lateral left upper lung. The osseous structures are grossly intact. Multilevel thoracic spondylosis. IMPRESSION: 1. Persistent interstitial prominence in the lungs without significant change favored to reflect fibr osis. 2. No new acute cardiopulmonary abnormality.
[2025-08-23 23:42] LABS: INR 1.14 (0.9-1.15); Partial Thromboplastin Time 29.3 SEC (24.5-34.5); Prothrombin Time 11.9 sec (9.3-11.8)
[2025-08-24] VITALS (10 sets, daily range): BP systolic 108–127; BP diastolic 50–81; PULSE 70–100; RESP 5–20; TEMP 97–98; O2SAT 93–100
[2025-08-24] MEDS: PANTOPRAZOLE 40 MG/10 ML VIAL INJ IV ONE (02:13)
[2025-08-24] MEDS: PIPERACILLIN-TAZOB 3.375GM 100 ML IV ONE (02:21)
[2025-08-24 03:54] LABS: Hematocrit 37.3 % (36.0-46.0); Hemoglobin 12.8 g/dL (12.2-16.2); Mean Corpuscular Hemoglobin 33.7 pg (28.0-32.0); Mean Corpuscular Volume 97.9 fL (80.0-100.0); Nucleated Red Blood Cells % 0.0 %
[2025-08-24] MEDS: SODIUM CHLORIDE 0.9% 1,000 ML IV ONE (04:28)
[2025-08-24 04:35] LABS: Alanine Aminotransferase 34 U/L (7-40); Alkaline Phosphatase 81 U/L (46-116); Anion Gap 11 (5-15); BUN/Creatinine Ratio 11.6 (10.0-20.0); Blood Urea Nitrogen 10 mg/dL (9-23); Calcium 8.8 mg/dL (8.7-10.4); Carbon Dioxide 23 mmol/L (20-31); Chloride 101 mmol/L (98-107); Glucose 103 mg/dL (74-106); Potassium 3.7 mmol/L (3.5-5.1); Total Protein 6.4 g/dL (5.7-8.2)
[2025-08-24 04:39] LABS: Albumin 3.1 g/dL (3.2-4.8); Sodium 135 mmol/L (136-145)
[2025-08-24 04:42] LABS: Bilirubin, Total 0.5 mg/dL (0.2-1.0)
--- NOTE | 2025-08-24 06:59 | ECG ---
[facility] Test Date: 2025-08-23 Test Time: 16:21:09 Pat Name: BREANA REESE Department: ED Room: 0294 B Gender: F [employer] Business [employer]st: KEELY : 1940 Requested By: GINNA WANG Order Number: [id number] Reading MD: Tom Diane Measurements Intervals Dixon Rate: 94 P: 7 PA: 129 QRS: 7 QRSD: 86 T: 59 QT: 344 QTc: 431 Interpretive Statements Sinus rhythm Anterior infarct, old Electronically Signed On 08-26-2025 18:41:47 PDT by Tom Diane Please click the below link to view image of tracing.
[2025-08-24] MEDS: PIPERACILLIN-TAZOB 3.375GM 100 ML IV SCH (07:11)
[2025-08-24] MEDS: PANTOPRAZOLE 40 MG/10 ML VIAL INJ IV SCH (08:55)
--- NOTE | 2025-08-24 12:06 | DVHINCON2 ---
Consultation - Surgical Date Seen: Aug 24, 2025 Referring Physician Reason for Consultation Acute cholecystitis History of Present Illness History of Present Illness Mrs. Smith is a 84-year-old female who presented with right upper quadrant pain since last Thursday. The pain has been on and off and decreasing in severity. Patient does not associate any particular foods with the pain. This is the 1st time she has had this pain. Denies nausea, vomiting, fevers, chills, changes in urinary or stooling habits. Patient walks several miles a daily without being short of breath, over 4 Mets of physical activity. Denies acholic stools, yellowing of eyes, darkening of urine. 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, open appendectomy Family and Social History Family and Social History Family history noncontributory ETOH/T Ob/drugs denies Allergies and medications Allergies: Coded Allergies: Codeine (Verified Allergy, Unknown, 04/23/19) Home Meds Active Scripts Methylprednisolone (Medrol Dosepak) 4 Mg Shar, 4 MG PO UD, #21 TAB UAD Prov:OLVIN GARIBAY 08/04/25 Methotrexate (Methotrexate) 2.5 Mg Tab, 6 TAB PO QWEEKLY, #24 TAB Prov:OLVIN GARIBAY 08/04/25 Prednisone (Prednisone) 10 Mg Shar, 20 MG PO BID for 5 Days, #20 TAB Prov:ANITA FARLEY MD 02/02/25 Diphenhydramine-Zinc Acetate (DIPHENHYDRAMINE HCL/ZINC) 1 Cre Cre, 1 CRE EX Q6HP PRN for 7 Days, #1 CRE Prov:RICHELLE JIN RESIDENT 10/16/24 Cetirizine Hcl (Zyrtec Allergy) 10 Mg Cap, 10 MG PO DAILY for 7 Days, #7 CAP Prov:RICHELLE JIN RESIDENT 10/16/24 Methylprednisolone (Medrol Dosepak) 4 Mg Shar, 4 MG PO UD, #21 TAB UAD Prov:RICHELLE JIN RESIDENT 10/16/24 Reported Medications Folic Ysxj-Unwdsudevz-Bwtnamja (Folbic) Tab, 1 TAB PO DAILY, #90 TAB 1 Refill 06/03/25 Famotidine (PEPCID TABLET) 20 Mg Tb, 1 TAB PO BID, #60 TAB 5 Refills 06/03/25 Atorvastatin Calcium (ATORVASTATIN CALCIUM) 10 Mg Tab, 1 TAB PO DAILY, #30 TAB 5 Refills 06/03/25 Cholecalciferol (VITAMIN D3) 2,000 Unit Tab, 5000 UNIT OR DAILY, TAB 06/03/25 Methotrexate (Methotrexate) 2.5 Mg Tab, 1.5 MG PO, MG 10/14/24 Review of systems Review of Systems: Deferred Examination Vital signs Vital Signs Date Time Temp Pulse Resp B/P (MAP) Pulse Ox O2 Delivery O2 Flow Rate FiO2 08/24/25 09:00 97.9 85 20 124/64 (84) 98 97.9 08/24/25 08:00 Room Air* 0 21 Medications Current Medications Medications (Trade) Dose Ordered Sig/Teresa Route PRN Reason Start Time Stop Time Status Last Admin Piperacillin Sod/ Tazobactam Sod 100 ml @ 25 mls/hr Q8HR IV 08/24/25 06:00 08/24/25 07:11 Pantoprazole Sodium (Protonix) 40 mg DAILY IV 08/24/25 10:00 08/24/25 08:55 Ondansetron HCl (Zofran) 4 mg Q4HP PRN IV NAUSEA / VOMITING 08/23/25 22:30 Hydromorphone HCl (Dilaudid Injection) 0.25 mg Q4HPRN PRN IV SEVERE PAIN (7-10 PAIN SCALE) 08/23/25 22:30 Laboratory Labs Test 08/24/25 03:04 08/23/25 23:02 08/23/25 16:38 Range/Units White Blood Count 6.9 4.4-10.8 10^3/uL Red Blood Count 3.82 L 4.0-5.20 10^6/uL Hemoglobin 12.8 12.2-16.2 g/dL Hematocrit 37.3 36.0-46.0 % Mean Corpuscular Volume 97.9 80.0-100.0 fL Mean Corpuscular Hemoglobin 33.7 H 28.0-32.0 pg Mean Corpuscular Hemoglobin Concent 34.4 32.0-36.0 g/dL Red Cell Distribution Width 14.3 11.8-14.3 % Platelet Count 207 140-450 10^3/uL Mean Platelet Volume 7.9 6.9-10.8 fL Neutrophils (%) (Auto) 77.5 37.0-80.0 % Lymphocytes (%) (Auto) 10.5 10.0-50.0 % Monocytes (%) (Auto) 6.0 0.0-12.0 % Eosinophils (%) (Auto) 4.9 0.0-7.0 % Basophils (%) (Auto) 1.1 0.0-2.0 % Neutrophils # (Auto) 5.4 1.6-8.6 10 ^3/uL Lymphocytes # (Auto) 0.7 0.4-5.4 10 ^3/uL Monocytes # (Auto) 0.4 0-1.3 10 ^3/uL Eosinophils # (Auto) 0.3 0-0.8 10 ^3/uL Basophils # (Auto) 0.1 0-0.2 10 ^3/uL Nucleated Red Blood Cells 0.0 % Sodium Level 135 L 136-145 mmol/L Potassium Level 3.7 3.5-5.1 mmol/L Chloride Level 101 98-107 mmol/L Carbon Dioxide Level 23 20-31 mmol/L Anion Gap 11 5-15 Blood Urea Nitrogen 10 9-23 mg/dL Creatinine 0.86 # 0.550-1.02 mg/dL Glomerular Filtration Rate Calc 67 >90 mL/min BUN/Creatinine Ratio 11.6 10.0-20.0 Serum Glucose 103 74-106 mg/dL Calcium Level 8.8 8.7-10.4 mg/dL Total Bilirubin 0.5 0.2-1.0 mg/dL Aspartate Amino Transferase (AST) 41 H 13-40 U/L Alanine Aminotransferase (ALT) 34 7-40 U/L Alkaline Phosphatase 81 46-116 U/L Troponin I High Sensitivity < 3 L </=34 ng/L Total Protein 6.4 5.7-8.2 g/dL Albumin 3.1 L 3.2-4.8 g/dL Prothrombin Time 11.9 H 9.3-11.8 sec Prothrombin Time INR 1.14 0.9-1.15 Activated Partial Thromboplast Time 29.3 24.5-34.5 SEC Lipase 35 12-53 U/L Examination: GENERAL:Normal, HEENT:Normal (No icterus), ABDOMEN:Abnormal (Nondistended, right lower quadrant scar, lower midline scar, soft, depressible, right upper quadrant tenderness, no rebound, no guarding) Problem List/Assessment/Plan Problems: (1) Acute cholecystitis due to biliary calculus Assessment and Plan Mrs. Smith is a 84-year-old female who presents with acute cholecystitis. Ultrasound shows large stone at the neck of the gallbladder, although there is no pericholecystic fluid all gallbladder wall thickening. Physical exam patient is exquisitely tender in the right upper quadrant. Patient will benefit from laparoscopic cholecystectomy, possible open. Procedure, risks, benefits, complications, and alternatives discussed with the patient. 1. On-call to OR for laparoscopic cholecystectomy, possible open 2. NPO Plan discussed with Plan discussed with: Patient Visit Coding Surgery Date of Service if different f: Aug 24, 2025 Billing Provider: MEHNAZ LE MD Surgery Visit Codes: [id number] - INP CONSULT <110 MIN MEHNAZ LE MD Aug 24, 2025 12:06
[2025-08-24] MEDS ORDERED: ROCURONIUM 10MG/ML 10ML VIAL IV ONE (13:09)
[2025-08-24] MEDS ORDERED: HYDROCORTISONE SOD SUCC 100 MG/2ML INJ VIAL ONE (13:09)
[2025-08-24] MEDS ORDERED: fentaNYL CITRATE 100 MCG/2 ML VL ONE (13:09)
[2025-08-24] MEDS ORDERED: ETOMIDATE (2MG/ML) 20ML VIAL IV ONE (13:09)
[2025-08-24] MEDS ORDERED: GLYCOPYRROLATE 0.2 MG/ML 1ML VIAL ONE (13:09)
[2025-08-24] MEDS ORDERED: LIDOCAINE 2% (LOCAL ANESTH.) PF 5ml SDV ONE (13:09)
[2025-08-24] MEDS ORDERED: HYDROmorphone HCL 2 MG/ML VL/or syr ONE (13:09)
[2025-08-24] MEDS: BUPIVACAINE 0.25% INJ 50ML VIAL ONE (14:13)
[2025-08-24] MEDS ORDERED: HYDROmorphone HCL 2 MG/ML VL/or syr IV PRN (15:15)
[2025-08-24] MEDS ORDERED: ONDANSETRON HCL 4 MG/2 ML VIAL IV PRN (15:15)
[2025-08-24] MEDS ORDERED: SUGAMMADEX 200mg/2ml Vial (100MG/ML) IV ONE (15:58)
--- NOTE | 2025-08-24 16:10 | DVHPN2 ---
Reviewed: H&P Changes from previous H/P or p: No Changes General: Per HPI Objective Vitals Vital Signs Date Time Temp Pulse Resp B/P (MAP) Pulse Ox O2 Delivery O2 Flow Rate FiO2 08/24/25 13:00 97.8 70 18 117/58 (77) 95 97.8 08/24/25 08:00 Room Air* 0 21 Intake/Output Intake and Output 08/24/25 07:00 Intake Total 0 ml Output Total 0 ml Balance 0 ml Intake Oral 0 ml Output Urine Total 0 ml Exam Gen: 84-year-old female in mild distress. Skin: Warm, dry, normal color and texture, no rash. HEENT: Normocephalic atraumatic, mucous membranes moist and pink. Neck: Cervical and supraclavicular nodes normal without enlargement, trachea is midline, thyroid gland is normal without masses. Pulmonary: Clear to auscultation and percussion bilaterally. Cardiac: Regular rate and rhythm. No murmur Abdomen: Soft, right upper quadrant tenderness, nondistended, bowel sounds present all 4 quadrants, no guarding, no rigidity, no organomegaly. Extremities: No cyanosis, clubbing, no edema Neuro: Cranial nerves II through XII grossly intact, normal affect and speech, no focal motor deficits. Medications Current Medications Medications Dose Ordered Sig/Teresa Route Start Time Stop Time Status Last Admin Dose Admin Piperacillin Sod/ Tazobactam Sod 100 ml @ 25 mls/hr Q8HR IV 08/24/25 06:00 08/24/25 07:11 25 MLS/HR Pantoprazole Sodium 40 mg DAILY IV 08/24/25 10:00 08/24/25 08:55 40 MG Ondansetron HCl 4 mg Q4HP PRN IV 08/23/25 22:30 Hydromorphone HCl 0.25 mg Q4HPRN PRN IV 08/23/25 22:30 Hydrocortisone Sodium Succinate 100 mg Q8HR IV 08/24/25 22:00 UNV Ondansetron HCl 4 mg ONCE PRN IV 08/24/25 15:15 08/24/25 15:16 UNV Hydromorphone HCl 0.25 mg Q10M PRN IV 08/24/25 15:15 08/24/25 15:46 UNV Laboratory Results Laboratory Tests 08/24/25 03:04 Chemistry Test 08/23/25 16:38 08/24/25 03:04 Albumin 3.5 g/dL (3.2-4.8) 3.1 g/dL (3.2-4.8) L Calcium Level 9.2 mg/dL (8.7-10.4) 8.8 mg/dL (8.7-10.4) Total Protein 7.1 g/dL (5.7-8.2) 6.4 g/dL (5.7-8.2) Coagulation Test 08/23/25 23:02 Prothrombin Time 11.9 sec (9.3-11.8) H Prothrombin Time INR 1.14 (0.9-1.15) Activated Partial Thromboplast Time 29.3 SEC (24.5-34.5) Lipid panel Test 08/23/25 16:38 Lipase 35 U/L (12-53) LFT Test 08/23/25 16:38 08/24/25 03:04 Alanine Aminotransferase (ALT) 37 U/L (7-40) 34 U/L (7-40) Alkaline Phosphatase 88 U/L (46-116) 81 U/L (46-116) Aspartate Amino Transferase (AST) 43 U/L (13-40) H 41 U/L (13-40) H Total Bilirubin 0.6 mg/dL (0.2-1.0) 0.5 mg/dL (0.2-1.0) Labs and/or images reviewed: Labs reviewed by me, Image(s) reviewed by me Assessment/Plan Assessment/Plan 84-year-old female presents for evaluation of abdominal pain. Patient endorses a seven day history of sharp right upper quadrant abdominal pain that radiates to her back. No nausea or vomiting. No fever or chills. No other acute complaints reported. 08/24: taken to OR today for lap/open cholecystectomy. dx: Acute cholecystitis Acute intractable abdominal pain due to above Plan: IV antibiotics Zosyn Surgical consult Pain prn analgesia Maintenance IV fluids Diet per surgery Med surge Full code Plan discussed with: Patient Date of Service: Aug 24, 2025 Billing Provider: EASTON CHACKO MD Common Visit Codes: [id number] INP/OBS CARE(HIGH) EASTON CHACKO MD Aug 24, 2025 16:10
--- NOTE | 2025-08-24 16:13 | DVHOP2 ---
Operative Report - 2 Report Details Date: 08/24/25 Preop Diagnosis: Acute cholecystitis Postop Diagnosis: Acute cholecystitis Hepatic cyst Surgeon: Mehnaz Quiroz MD Pearl Restorer: Erik Harris NP Anesthesiologist: Dr. Padilla Sloan Anesthesia: General Drains: 19 Russian round channel drain under the liver exiting out of the right flank incision Consent: The patient was informed of the risks and benefits of the procedure. These include but are not limited to complications of anesthesia, postoperative infection, incomplete relief of symptoms, recurrence of symptoms, damage to blood vessels, nerves and tendons, deep venous thrombosis, pulmonary embolism and possible need for repeat surgery in the future. Complications: None Estimated Blood Loss: 5 mL Findings: Entire peritoneal cavity full of dense adhesions to the anterior abdominal wall. Enlarged gallbladder with large stone at the neck. Large liver cyst in segment 6 Indications for Surgery: Acute cholecystitis Name of Procedure Performed Laparoscopic cholecystectomy and lysis of adhesions Procedure Details Procedure Details: Upon arriving to the operating room the patient was transferred to the operating table and placed in the supine position with arms extended. General endotracheal anesthesia was induced. Patient was prepped and draped in the standard sterile surgical fashion with chlorhexidine. I then proceeded to enter at killian's point with Veress needle technique. I insufflated the peritoneal cavity to 15 mmHg with toleration. I then placed a 5 mm trocar at killian's point utilizing Optiview. Once in the peritoneal cavity I noted dense adhesions throughout the entire peritoneal cavity to the anterior abdominal wall. I then proceeded to lyse some adhesions bluntly utilizing the camera until I was able to free up space in the left lower quadrant for a 2nd 5 mm trocar. I then placed a 2nd 5 mm trocar in the left lower quadrant under direct vision. Utilizing this trocar I inserted a laparoscopic peanut and I was able to lyse adhesions until I got to the right hemiabdomen. Now was able to visualize the right side of the liver. I then placed a trocar at the right midclavicular subcostal area under direct vision. I then used this port to lyse some more adhesions in the right hemiabdomen making room for the usual ports and for a camera port in the off right position a cm or 2 above the umbilicus. Utilizing this last port for camera I was able to place a 12 mm to the right of the umbilicus and 2-3 cm above it. I then placed 2 additional 5 mm ports at the epigastric area and the right flank area. Attention now turned to the liver were a very large cyst was seen in segment 6. Gallbladder was also noted to be very enlarged with omentum draping over it. Patient was then placed in the reverse Trendelenburg [id number] position. I then utilized a grasper to grab the fundus of the gallbladder and retracted cephalad and towards the right shoulder. I then lyse the omental adhesions to the gallbladder both bluntly and with cautery. Once the infundibulum was completely exposed I placed a 2nd grasper at the infundibulum retracted laterally, exposing cholesterol angle. At this point I noted there was a large stone at the neck of the gallbladder, and gallbladder was not enlarged. The fundus grasper made a hole in the gallbladder and we had some bile spillage. I then proceeded to open the peritoneum on either side of the gallbladder with cautery and brought it down to the liver. I then proceeded to fully skeletonized Calot triangle. I then noted 2 and only 2 structures entering the gallbladder. Cystic duct and artery were fully skeletonized. Critical view was obtained. Artery was then clipped with 5 mm clips 2 times proximal and 1 times distal. Duct was also milked prior to clipping no stones felt. I then clipped it with 2 5 mm clips proximal and 1 distal. Both artery and duct were transected. I then removed the gallbladder from its liver attachment with cautery. Once the gallbladder was completely off it was placed in a Endo-Catch bag and removed out of the peritoneal cavity through the 12 mm port site. I then proceeded to inspect the liver bed, and how to cauterize several areas of oozing. Hemostasis was achieved. I then proceeded to irrigate serially the gallbladder bed and below the liver until effluent was clear. I then proceeded to do the same over the liver until effluent was also clear. At this point I rechecked the gallbladder fossa and it was hemostatic, and all clips were in place. I decided to place a 19 Russian round channel drain under the liver and exiting out of the right flank incision, drain was secured in place with a 2-0 nylon. This concluded the intraperitoneal portion of the procedure. 5 mm ports were removed under direct vision no bleeding from the abdominal cavity. Peritoneal cavity was allowed to fully desufflate. All counts were complete and correct. Fascia at the 12 mm site was closed with a running 0 Vicryl suture. All skin sites were closed with 4-0 Monocryl and Dermabond. 0.25% Marcaine was used as local anesthetic. Specimen: Gallbladder and contents Condition Stable Disposition Still a Patient MEHNAZ LE MD Aug 24, 2025 16:13
[2025-08-24] MEDS ORDERED: HYDROcodone-ACET 5/325MG TAB PO PRN (16:15)
[2025-08-24] MEDS ORDERED: HYDROcodone-ACET 10/325MG TAB PO PRN (16:15)
[2025-08-24] MEDS: ACETAMINOPHEN IV 1000 MG/100ML (10MG/ML) IV ONE (17:14)
[2025-08-24] MEDS: NALOXONE HCL 1MG/ML 2ML SYRINGE IV ONE (21:04)
[2025-08-24] MEDS: HYDROCORTISONE SOD SUCC 100 MG/2ML INJ VIAL IV SCH (22:52)
[2025-08-25 01:00] VITALS: BP 122/70; PULSE 92; RESP 14; TEMP 97.4; O2SAT 98
[2025-08-25 05:00] VITALS: BP 122/68; PULSE 94; RESP 16; TEMP 97.5; O2SAT 94
[2025-08-25 07:46] LABS: Hematocrit 36.4 % (36.0-46.0); Hemoglobin 12.5 g/dL (12.2-16.2); Mean Corpuscular Hemoglobin 34.2 pg (28.0-32.0); Mean Corpuscular Volume 99.6 fL (80.0-100.0); Nucleated Red Blood Cells % 0.0 %
[2025-08-25 08:12] LABS: Alkaline Phosphatase 76 U/L (46-116); Anion Gap 11 (5-15); BUN/Creatinine Ratio 11.2 (10.0-20.0); Blood Urea Nitrogen 11 mg/dL (9-23); Carbon Dioxide 24 mmol/L (20-31); Chloride 99 mmol/L (98-107); Potassium 4.4 mmol/L (3.5-5.1); Total Protein 6.3 g/dL (5.7-8.2)
[2025-08-25 08:13] LABS: Bilirubin, Direct 0.2 mg/dL (<0.3); Bilirubin, Total 0.4 mg/dL (0.2-1.0)
[2025-08-25 08:17] LABS: Alanine Aminotransferase 66 U/L (7-40); Albumin 3.1 g/dL (3.2-4.8); Calcium 8.5 mg/dL (8.7-10.4); Glucose 151 mg/dL (74-106); Sodium 134 mmol/L (136-145)
[2025-08-25 09:00] VITALS: BP 111/56; PULSE 63; RESP 18; TEMP 97.4; O2SAT 95
--- NOTE | 2025-08-25 12:33 | DVHPN2 ---
Progress Note - Surgical Date Seen: Aug 25, 2025 Post op day Post op day: 1 Subjective Patient reports: Feels better (Patient feels better, no abdominal pain complaints, tolerating liquid diet.) Review of Systems: Deferred Objective Vital signs Vital Sign Date Time Temp Pulse Resp B/P (MAP) Pulse Ox O2 Delivery O2 Flow Rate FiO2 08/25/25 09:00 97.4 63 18 111/56 (74) 95 97.4 08/24/25 20:00 Nasal Cannula* 2 28 Total Intake and Output 08/24/25 08/24/25 08/25/25 15:00 23:00 07:00 Intake Total 450 ml 0 ml 625 ml Output Total 40 ml Balance 450 ml -40 ml 625 ml Medications Current Medications Medications Dose Ordered Sig/Teresa Route Start Time Stop Time Status Last Admin Dose Admin Piperacillin Sod/ Tazobactam Sod 100 ml @ 25 mls/hr Q8HR IV 08/24/25 06:00 08/25/25 06:21 25 MLS/HR Pantoprazole Sodium 40 mg DAILY IV 08/24/25 10:00 08/25/25 10:29 40 MG Ondansetron HCl 4 mg Q4HP PRN IV 08/23/25 22:30 Hydromorphone HCl 0.25 mg Q4HPRN PRN IV 08/23/25 22:30 Hold Hydrocortisone Sodium Succinate 100 mg Q8HR IV 08/24/25 22:00 08/25/25 06:22 100 MG Acetaminophen/ Hydrocodone Bitart 1 tab Q4HPRN PRN PO 08/24/25 16:15 Acetaminophen/ Hydrocodone Bitart 1 tab Q4HP PRN PO 08/24/25 16:15 Laboratory Laboratory Tests 08/25/25 07:17 Test 08/25/25 07:17 Range/Units Serum Glucose 151 H 74-106 mg/dL Examination: GENERAL:Normal, HEENT:Normal (No icterus), ABDOMEN:Normal (Nondistended, incision sites with skin glue in place and without surrounding signs of infection, right flank drain with serosanguineous output approximately 15 mL, prior surgical scars the midline and right lower quadrant, appropriate tenderness, no rebound no guarding) Labs and/or images reviewed: Labs reviewed by me (White count 10 from 7 likely reactive to the surgery, hemoglobin stable) Problem List/Assessment/Plan Assessment and Plan Mrs. Smith is a 84-year-old female who presented with the acute cholecystitis and she is currently postop day 1 from laparoscopic cholecystectomy with lysis of adhesions. A drain was left in place due to some bile spillage during the case and given that she has so much adhesions throughout the peritoneal cavity, it will be hard to place a drain if she needed one. Patient is cleared from surgical standpoint for discharge, no additional antibiotics required. 1. Cleared for discharge per surgical standpoint. 2. Low-fat diet 3. No lifting over 10 lb for 6-8 weeks 4. May shower starting today, soap and water okay to run over incision sites. No bathing or swimming for 2 weeks. 5. For baseline pain control Tylenol and/or ibuprofen, please follow mail clerk's direction. 6. If needed: Sheridan 5-325 mg 1 tab p.o. every 6 hours p.r.n. severe pain 7. No driving while taking narcotics 8. Follow-up with Dr. Márquez at surgery Clinic in 1-2 weeks 9. Drain education, patient will need to leave with a drain, drain will be removed at clinic. My Orders My Orders Orders - MEHNAZ LE MD Procedure Category Date Status Time Clear Liq Diet DIET 08/24/25 Transmitted Dinner Communication Order ORDERS 08/24/25 Transmitted 16:14 Hydrocodone-Acet PHA 08/24/25 In Process 5/325mg Tab ([place] 16:15 Hydrocodone-Acet PHA 08/24/25 In Process 10/325mg Tab ([place] 16:15 Plan discussed with Plan discussed with: Patient Visit Coding Surgery Date of Service if different f: Aug 25, 2025 Billing Provider: MEHNAZ LE MD Surgery Visit Codes: [id number] INP/OBS CARE(HIGH) MEHNAZ LE MD Aug 25, 2025 12:33
[2025-08-25 13:00] VITALS: BP 98/58; PULSE 77; RESP 16; TEMP 97.2; O2SAT 95
--- NOTE | 2025-08-25 13:00 | DVHPN2 ---
Reviewed: H&P Changes from previous H/P or p: No Changes General: Per HPI Objective Vitals Vital Signs Date Time Temp Pulse Resp B/P (MAP) Pulse Ox O2 Delivery O2 Flow Rate FiO2 08/25/25 09:00 97.4 63 18 111/56 (74) 95 97.4 08/24/25 20:00 Nasal Cannula* 2 28 Intake/Output Intake and Output 08/25/25 07:00 Intake Total 1075 ml Output Total 40 ml Balance 1035 ml Intake Oral 625 ml IV Total 450 ml Drainage Total 40 ml # Voids 4 Exam Gen: 84-year-old female in mild distress. Skin: Warm, dry, normal color and texture, no rash. HEENT: Normocephalic atraumatic, mucous membranes moist and pink. Neck: Cervical and supraclavicular nodes normal without enlargement, trachea is midline, thyroid gland is normal without masses. Pulmonary: Clear to auscultation and percussion bilaterally. Cardiac: Regular rate and rhythm. No murmur Abdomen: Soft, right upper quadrant tenderness, nondistended, bowel sounds present all 4 quadrants, no guarding, no rigidity, no organomegaly. Extremities: No cyanosis, clubbing, no edema Neuro: Cranial nerves II through XII grossly intact, normal affect and speech, no focal motor deficits. Medications Current Medications Medications Dose Ordered Sig/Teresa Route Start Time Stop Time Status Last Admin Dose Admin Piperacillin Sod/ Tazobactam Sod 100 ml @ 25 mls/hr Q8HR IV 08/24/25 06:00 08/25/25 06:21 25 MLS/HR Pantoprazole Sodium 40 mg DAILY IV 08/24/25 10:00 08/25/25 10:29 40 MG Ondansetron HCl 4 mg Q4HP PRN IV 08/23/25 22:30 Hydromorphone HCl 0.25 mg Q4HPRN PRN IV 08/23/25 22:30 Hold Hydrocortisone Sodium Succinate 100 mg Q8HR IV 08/24/25 22:00 08/25/25 06:22 100 MG Acetaminophen/ Hydrocodone Bitart 1 tab Q4HPRN PRN PO 08/24/25 16:15 Acetaminophen/ Hydrocodone Bitart 1 tab Q4HP PRN PO 08/24/25 16:15 Laboratory Results Laboratory Tests 08/25/25 07:17 Chemistry Test 08/25/25 07:17 Albumin 3.1 g/dL (3.2-4.8) L Calcium Level 8.5 mg/dL (8.7-10.4) L Total Protein 6.3 g/dL (5.7-8.2) LFT Test 08/25/25 07:17 Alanine Aminotransferase (ALT) 66 U/L (7-40) H Alkaline Phosphatase 76 U/L (46-116) Aspartate Amino Transferase (AST) 139 U/L (13-40) H Direct Bilirubin 0.2 mg/dL (<0.3) Total Bilirubin 0.4 mg/dL (0.2-1.0) Labs and/or images reviewed: Labs reviewed by me, Image(s) reviewed by me Assessment/Plan Assessment/Plan 84-year-old female presents for evaluation of abdominal pain. Patient endorses a seven day history of sharp right upper quadrant abdominal pain that radiates to her back. No nausea or vomiting. No fever or chills. No other acute complaints reported. 08/24: taken to OR today for lap/open cholecystectomy. 08/25: Patient postop day 1, doing well, on full liquid diet,. Surgery following. Patient is still having pain requiring IV analgesia,. Patient off feeling safe to go home. We will keep patient for 1 more midnight to evaluate tomorrow morning, likely discharge tomorrow morning a.m.. dx: Acute cholecystitis Acute intractable abdominal pain due to above Plan: IV antibiotics Zosyn Surgical consult Pain prn analgesia Maintenance IV fluids Diet per surgery Med surge Full code Plan discussed with: Patient Date of Service: Aug 25, 2025 Billing Provider: EASTON CHACKO MD Common Visit Codes: [id number] INP/OBS CARE(HIGH) EASTON CHACKO MD Aug 25, 2025 13:00
[2025-08-25 16:29] VITALS: BP 104/64; PULSE 76; RESP 20; TEMP 98; O2SAT 96
[2025-08-25 21:00] VITALS: BP 104/55; PULSE 65; RESP 19; TEMP 98.1; O2SAT 96
[2025-08-26 00:56] VITALS: BP 93/51; PULSE 66; RESP 18; TEMP 97.1; O2SAT 94
[2025-08-26 04:34] VITALS: BP 111/58; PULSE 65; RESP 18; TEMP 98.2; O2SAT 94
[2025-08-26 06:42] LABS: Hematocrit 33.7 % (36.0-46.0); Hemoglobin 11.7 g/dL (12.2-16.2); Mean Corpuscular Hemoglobin 33.9 pg (28.0-32.0); Mean Corpuscular Volume 98.3 fL (80.0-100.0); Nucleated Red Blood Cells % 0.0 %
[2025-08-26 06:51] LABS: Alkaline Phosphatase 71 U/L (46-116); Anion Gap 9 (5-15); BUN/Creatinine Ratio 9.1 (10.0-20.0); Bilirubin, Total 0.5 mg/dL (0.2-1.0); Carbon Dioxide 21 mmol/L (20-31); Chloride 100 mmol/L (98-107); Potassium 3.8 mmol/L (3.5-5.1); Total Protein 6.3 g/dL (5.7-8.2)
[2025-08-26 07:25] LABS: Alanine Aminotransferase 64 U/L (7-40); Albumin 3.0 g/dL (3.2-4.8); Blood Urea Nitrogen 7 mg/dL (9-23); Calcium 8.5 mg/dL (8.7-10.4); Glucose 129 mg/dL (74-106); Sodium 130 mmol/L (136-145)
[2025-08-26 09:00] VITALS: BP 104/60; PULSE 63; RESP 18; TEMP 97.5; O2SAT 95
--- NOTE | 2025-08-26 10:29 | DVHPN2 ---
Reviewed: H&P Changes from previous H/P or p: No Changes General: Per HPI Objective Vitals Vital Signs Date Time Temp Pulse Resp B/P (MAP) Pulse Ox O2 Delivery O2 Flow Rate FiO2 08/26/25 09:00 97.5 63 18 104/60 (75) 95 97.5 08/25/25 20:00 Room Air* 0 N/A Nasal Cannula* Intake/Output Intake and Output 08/26/25 07:00 Intake Total 1280 ml Balance 1280 ml Intake Oral 1080 ml IV Total 200 ml # Voids 3 Exam Gen: 84-year-old female in mild distress. Skin: Warm, dry, normal color and texture, no rash. HEENT: Normocephalic atraumatic, mucous membranes moist and pink. Neck: Cervical and supraclavicular nodes normal without enlargement, trachea is midline, thyroid gland is normal without masses. Pulmonary: Clear to auscultation and percussion bilaterally. Cardiac: Regular rate and rhythm. No murmur Abdomen: Soft, right upper quadrant tenderness, nondistended, bowel sounds present all 4 quadrants, no guarding, no rigidity, no organomegaly. Extremities: No cyanosis, clubbing, no edema Neuro: Cranial nerves II through XII grossly intact, normal affect and speech, no focal motor deficits. Medications Current Medications Medications Dose Ordered Sig/Teresa Route Start Time Stop Time Status Last Admin Dose Admin Piperacillin Sod/ Tazobactam Sod 100 ml @ 25 mls/hr Q8HR IV 08/24/25 06:00 08/26/25 05:52 25 MLS/HR Pantoprazole Sodium 40 mg DAILY IV 08/24/25 10:00 08/25/25 10:29 40 MG Ondansetron HCl 4 mg Q4HP PRN IV 08/23/25 22:30 Hydromorphone HCl 0.25 mg Q4HPRN PRN IV 08/23/25 22:30 Hold Acetaminophen/ Hydrocodone Bitart 1 tab Q4HPRN PRN PO 08/24/25 16:15 Acetaminophen/ Hydrocodone Bitart 1 tab Q4HP PRN PO 08/24/25 16:15 Laboratory Results Laboratory Tests 08/26/25 05:40 Chemistry Test 08/26/25 05:40 Albumin 3.0 g/dL (3.2-4.8) L Calcium Level 8.5 mg/dL (8.7-10.4) L Total Protein 6.3 g/dL (5.7-8.2) LFT Test 08/26/25 05:40 Alanine Aminotransferase (ALT) 64 U/L (7-40) H Alkaline Phosphatase 71 U/L (46-116) Aspartate Amino Transferase (AST) 114 U/L (13-40) H Total Bilirubin 0.5 mg/dL (0.2-1.0) Labs and/or images reviewed: Labs reviewed by me, Image(s) reviewed by me Assessment/Plan Assessment/Plan 84-year-old female presents for evaluation of abdominal pain. Patient endorses a seven day history of sharp right upper quadrant abdominal pain that radiates to her back. No nausea or vomiting. No fever or chills. No other acute complaints reported. 08/24: taken to OR today for lap/open cholecystectomy. 08/25: Patient postop day 1, doing well, on full liquid diet,. Surgery following. Patient is still having pain requiring IV analgesia,. Patient off feeling safe to go home. We will keep patient for 1 more midnight to evaluate tomorrow morning, likely discharge tomorrow morning a.m.. 08/26: Patient doing well, tolerating p.o.. Vital signs stable. We will get PT eval. Hyponatremia likely volume depletion we will give normal saline. We will check BmP to 2p.m.. dx: Acute cholecystitis Acute intractable abdominal pain due to above Plan: IV antibiotics Zosyn Surgical consult Pain prn analgesia Maintenance IV fluids Diet per surgery Med surge Full code Plan discussed with: Patient My Orders Orders - EASTON CHACKO MD Procedure Category Date Status Time Pt Request For Service PT 08/26/25 Logged 10:22 Date of Service: Aug 26, 2025 Billing Provider: EASTON CHACKO MD Common Visit Codes: [id number] INP/OBS CARE(HIGH) EASTON CHACKO MD Aug 26, 2025 10:29
[2025-08-26] MEDS ORDERED: AUG875T PO (12:21)
[2025-08-26] MEDS ORDERED: ZOFR4T PO (12:21)
[2025-08-26] MEDS: SODIUM CHLORIDE 0.9% 1,000 ML IV SCH (12:23)
--- NOTE | 2025-08-26 12:23 | DVHDS2 ---
Discharge Summary Date of Admission Aug 23, 2025 at 21:40 Date of Discharge: Aug 26, 2025 Labs/Diagnostic Data: Laboratory Results Test 08/26/25 05:40 08/25/25 07:17 08/24/25 03:04 08/23/25 23:02 White Blood Count 13.0 10^3/uL (4.4-10.8) Red Blood Count 3.43 10^6/uL (4.0-5.20) Hemoglobin 11.7 g/dL (12.2-16.2) Hematocrit 33.7 % (36.0-46.0) Mean Corpuscular Volume 98.3 fL (80.0-100.0) Mean Corpuscular Hemoglobin 33.9 pg (28.0-32.0) Mean Corpuscular Hemoglobin Concent 34.5 g/dL (32.0-36.0) Red Cell Distribution Width 14.1 % (11.8-14.3) Platelet Count 260 10^3/uL (140-450) Mean Platelet Volume 7.8 fL (6.9-10.8) Neutrophils (%) (Auto) 79.5 % (37.0-80.0) Lymphocytes (%) (Auto) 9.8 % (10.0-50.0) Monocytes (%) (Auto) 10.5 % (0.0-12.0) Eosinophils (%) (Auto) 0.1 % (0.0-7.0) Basophils (%) (Auto) 0.1 % (0.0-2.0) Neutrophils # (Auto) 10.3 10 ^3/uL (1.6-8.6) Lymphocytes # (Auto) 1.3 10 ^3/uL (0.4-5.4) Monocytes # (Auto) 1.4 10 ^3/uL (0-1.3) Eosinophils # (Auto) 0 10 ^3/uL (0-0.8) Basophils # (Auto) 0 10 ^3/uL (0-0.2) Nucleated Red Blood Cells 0.0 % Sodium Level 130 mmol/L (136-145) Potassium Level 3.8 mmol/L (3.5-5.1) Chloride Level 100 mmol/L (98-107) Carbon Dioxide Level 21 mmol/L (20-31) Anion Gap 9 (5-15) Blood Urea Nitrogen 7 mg/dL (9-23) Creatinine 0.77 mg/dL (0.550-1.02) Glomerular Filtration Rate Calc 76 mL/min (>90) BUN/Creatinine Ratio 9.1 (10.0-20.0) Serum Glucose 129 mg/dL (74-106) Calcium Level 8.5 mg/dL (8.7-10.4) Total Bilirubin 0.5 mg/dL (0.2-1.0) Aspartate Amino Transferase (AST) 114 U/L (13-40) Alanine Aminotransferase (ALT) 64 U/L (7-40) Alkaline Phosphatase 71 U/L (46-116) Total Protein 6.3 g/dL (5.7-8.2) Albumin 3.0 g/dL (3.2-4.8) Direct Bilirubin 0.2 mg/dL (<0.3) Troponin I High Sensitivity < 3 ng/L (</=34) Prothrombin Time 11.9 sec (9.3-11.8) Prothrombin Time INR 1.14 (0.9-1.15) Activated Partial Thromboplast Time 29.3 SEC (24.5-34.5) Test 08/23/25 16:38 Lipase 35 U/L (12-53) Other Laboratory Tests 08/26/25 05:40 Brief Hx & Hospital Course: 84-year-old female presents for evaluation of abdominal pain. Patient endorses a seven day history of sharp right upper quadrant abdominal pain that radiates to her back. No nausea or vomiting. No fever or chills. No other acute complaints reported. 08/24: taken to OR today for lap/open cholecystectomy. 08/25: Patient postop day 1, doing well, on full liquid diet,. Surgery following. Patient is still having pain requiring IV analgesia,. Patient off feeling safe to go home. We will keep patient for 1 more midnight to evaluate tomorrow morning, likely discharge tomorrow morning a.m.. 08/26: Patient doing well, tolerating p.o.. Vital signs stable. We will get PT eval. Hyponatremia likely volume depletion we will give normal saline. We will check BmP to 2p.m.. dx: Acute cholecystitis status post laparoscopic cholecystectomy Hepatic cyst Acute intractable abdominal pain due to above Discharge plan: -For pain take Tylenol -Take Augmentin 875 mg twice daily for 5 days - Home health for medication management, and vital checks - ambulate using front wheel walker. -For nausea can take Zofran as needed up to 3 times daily, oral dissolvable tablet. -Full liquid diet (soup, broth, smoothly, weaker drink, apple puree) , to full liquid diet for 1 week, thereafter can advance to puree and then regular -Follow up with surgery for postop follow up and to remove abdominal binder and MILTON drain --follow up with PCP to review discharge -continue other home medications not mentioned above. Condition at Discharge: Fair Final Diagnosis/Problems List Acute cholecystitis status post laparoscopic cholecystectomy Hepatic cyst Acute intractable abdominal pain due to above Discharge Disposition: Home with Health Services Discharge Instruct/Medications Scheduled Atorvastatin Calcium (Atorvastatin Calcium), 1 TAB PO DAILY, (Reported) Cetirizine Hcl (Zyrtec Allergy), 10 MG PO DAILY Cholecalciferol (Vitamin D3), 5,000 UNIT OR DAILY, (Reported) Famotidine (Pepcid Tablet), 1 TAB PO BID, (Reported) Folic Skjd-Qlxezgtycd-Gjxhckly (Folbic), 1 TAB PO DAILY, (Reported) Methotrexate (Methotrexate), 6 TAB PO QWEEKLY Methylprednisolone (Medrol Dosepak), 4 MG PO UD Methylprednisolone (Medrol Dosepak), 4 MG PO UD Prednisone (Prednisone), 20 MG PO BID Scheduled PRN Diphenhydramine-Zinc Acetate (Diphenhydramine Hcl/Zinc), 1 CRE EX Q6HP PRN Miscellaneous Medications Methotrexate (Methotrexate), 1.5 MG PO, (Reported) Discharge Statement: "Patient was advised to return to the ER or call 911 if any headaches, dizziness, shortness of breath, chest pain, abdominal pain, bleeding, fevers, or worsening of medical condition. Patient was counseled about treatment plan, medications, possible side effects, patientverbalized understanding. All questions were answered to the best of my ability. This discharge took greater then 30 minutes in planning, reviewing documentation, counseling the patient, and discussing with other team members." Date of Service: Aug 26, 2025 Billing Provider: EASTON CHACKO MD Common Visit Codes: 82882-EJJ/OBS DISCH DAY >30min EASTON CHACKO MD Aug 26, 2025 12:23
[2025-08-26 12:33] VITALS: BP 118/58; PULSE 63; RESP 15; TEMP 97.7; O2SAT 95
[2025-08-26 14:40] LABS: Chloride 100 mmol/L (98-107); Potassium 3.7 mmol/L (3.5-5.1)
[2025-08-26 14:41] LABS: Anion Gap 10 (5-15); Carbon Dioxide 24 mmol/L (20-31)
[2025-08-26 14:42] LABS: Sodium 134 mmol/L (136-145)
[2025-08-26 14:47] LABS: BUN/Creatinine Ratio 15.6 (10.0-20.0); Blood Urea Nitrogen 12 mg/dL (9-23)
[2025-08-26 14:55] LABS: Calcium 8.4 mg/dL (8.7-10.4); Glucose 119 mg/dL (74-106)
[2025-08-26 16:47] VITALS: BP 111/61; PULSE 57; RESP 18; TEMP 98.1; O2SAT 95
[2025-08-26 18:12] VITALS: TEMP 36.7
== END 2025-08-26 19:00 | disposition home or self-care (01) | DRG 418 ==
LOC: ER 16:06 → OVERFLOW 21:40 → WEST WING 21:41
PROVIDERS: ADMIT Student in an Organized Health Care Education/Training Program; ATTEND Student in an Organized Health Care Education/Training Program
PROC: 0DNW4ZZ Release Peritoneum, Percutaneous Endoscopic Approach (ICD-10-PCS; 2025-08-24)
PROC: 0FT44ZZ Resection of Gallbladder, Percutaneous Endoscopic Approach (ICD-10-PCS; principal; 2025-08-24 13:43)
DX: K80.00 Calculus of gallbladder with acute cholecystitis without obstruction (principal); E87.1 Hypo-osmolality and hyponatremia; R16.0 Hepatomegaly, not elsewhere classified; E11.9 Type 2 diabetes mellitus without complications; E86.9 Volume depletion, unspecified; I10 Essential (primary) hypertension; K66.0 Peritoneal adhesions (postprocedural) (postinfection); K76.89 Other specified diseases of liver; K82.8 Other specified diseases of gallbladder; M06.9 Rheumatoid arthritis, unspecified; Z88.5 Allergy status to narcotic agent; Z90.49 Acquired absence of other specified parts of digestive tract
CPT/HCPCS: 36415; 71045; 76705; 80048; 80053; 82248; 83690; 84484; 85025; 85610; 85730; 86850; 86900; 86901; 93005; 97163; G0378; J0131; J0694; J2003; J2470; J2543; J3490

== ENCOUNTER 2025-11-08 03:45 | Emergency (ER) | payer OTHER ==
[~2025-11-08] VITALS: Ht 149.9 cm; Wt 65.9 kg
[~2025-11-08 03:45] MED LIST changes: +AUG875T PO; +ZOFR4T PO
--- NOTE | 2025-11-08 04:09 | ED.PDOC ---
HPI (NEURO) HPI Comments 84 year old female presents to the ED for cc of headache onset last night. Pt reports associated symptoms of dizziness, nausea, and generalized weakness on the left side of her body. Pt states weakness extends from her head down to her left arm. Pt denies associated symptoms of diarrhea, vomiting, chest pain at this time. No other associated symptoms, modifiers, recent injuries or sick contacts present at this time. Chief Complaint: Headache Time Seen by MD: 04:03 Primary Care Provider: BECKA Atkins Notes: Nurses Notes, Medications, Allergies Information Source: Patient, Relative (Child) Mode of Arrival: Wheelchair Severity: Moderate Headache Severity: Moderate Timing: Hours Duration: Since onset Prehospital treatment: None Headache Location: Generalized Weakness Location: (L) Sided, (L) Leg Onset: At rest Circumstances: Spontaneous Symptoms: None Before: Normal During: Trauma: None History of: None Modifying factors: Nothing Associated Signs and Symptoms: Nausea, Weakness Past Medical History PAST MEDICAL HISTORY: Arthritis, DM, HTN Surgical History: Denies all surgeries HAND OUTSIDE CUTTER History: Denies all HAND OUTSIDE CUTTER Hx Family History Family History: Reviewed,noncontributory to illness, Unknown Social History Smoker: Non-Smoker Alcohol: Denies ETOH Use Drugs: Denies Drug Use Lives In: Home Constitutional: denies: chills, diaphoresis, fatigue, fever, malaise, sweats, weakness, others EENTM: denies: blurred vision, double vision, ear bleeding, ear discharge, ear drainage, ear pain, ear ringing, eye pain, eye redness, hearing loss, mouth pain, mouth swelling, nasal discharge, nose bleeding, nose congestion, nose pain, photophobia, tearing, throat pain, throat swelling, voice changes, others Respiratory: denies: cough, hemoptysis, orthopnea, SOB at rest, shortness of breath, SOB with excertion, stridor, wheezing, others Cardiovascular: denies: chest pain, dizzy spells, diaphoresis, Dyspnea on exertion, edema, irregular heart beat, left arm pain, lightheadedness, palpitations, PND, syncope, others Gastrointestinal: reports: nausea; denies: abdomen distended, abdominal pain, blood streaked bowels, constipated, diarrhea, dysphagia, difficulty swallowing, hematemesis, melena, poor appetite, poor fluid intake, rectal bleeding, rectal pain, vomiting, others Genitourinary: denies: abnormal vagina bleeding, burning, dyspareunia, dysuria, flank pain, frequency, hematuria, incontinence, pain, , vagina discharge, urgency, others Neurological: reports: headache, left sided weakness, weakness; denies: dizziness, fainting, left sided numbness, numbness, paresthesia, pre-existing deficit, right sided numbness, right sided weakness, seizure, speech problems, tingling, tremors, others Musculoskeletal: denies: back pain, gout, joint pain, joint swelling, muscle pain, muscle stiffness, neck pain, others Integumetry: denies: bruises, change in color, change in hair/nails, dryness, laceration, lesions, lumps, rash, wounds, others Allergic/Immunocompromised: denies: Difficulty Healing, Frequent Infections, Hives, Itching, others Hematologic/Lymphatic: denies: anemia, blood clots, easy bleeding, easy bruising, swollen glands, others Endocrine: denies: excessive hunger, excessive sweating, excessive thirst, excessive urination, flushing, intolerance to cold, intolerance to heat, unexplained weight gain, unexplained weight loss, others Psychiatric: denies: anxiety, bipolar disorder, depression, hopeless, panic disorder, schizophrenia, sleepless, suicidal, others All Other Systems: Reviewed and Negative Physical Exam General Appearance: No Apparent Distress, Normal HEENT: Normal ENT Inspection, Pharynx Normal, TMs Normal Neck: Full Range of Motion, Non-Tender, Normal, Normal Inspection Respiratory: Chest Non-Tender, Lungs Clear, No Accessory Muscle Use, No Respiratory Distress, Normal Breath Sounds Cardiovascular: No Edema, No JVD, No Murmur, No Gallop, Normal Peripheral Pulses, Regular Rate/Rhythm Breast Exam: Deferred Gastrointestinal: No Organomegaly, Non Tender, No Pulsatile Mass, Normal Bowel Sounds, Soft Genitalia: Deferred Pelvic: Deferred Rectal: Deferred Extremities: No calf tenderness, Normal capillary refill, Normal inspection, Normal range of motion, Non-tender, No pedal edema Musculoskeletal : Apperance: Normal Neurologic: Alert, architectural project captain II-XII nml as Tested, No Motor Deficits, Normal Affect, Normal Mood, No Sensory Deficits Cerebellar Function: Normal Reflexes: Normal Skin: Dry, Normal Color, Warm Lymphatic: No Adenopathy Was a procedure done? Was a procedure done?: No X-Ray, Labs, Meds, VS Vital Signs Date Time Temp Pulse Resp B/P (MAP) Pulse Ox O2 Delivery O2 Flow Rate FiO2 11/08/25 05:02 102 95 Room Air 11/08/25 05:02 97.7 102 18 146/86 (106) 95 97.7 11/08/25 04:43 84 11/08/25 03:48 97.7 102 18 146/86 95 97.7 Lab Test 11/08/25 03:51 Range/Units POC Glucose 106 70-106 mg/dl Current Medications Medications (Trade) Dose Ordered Sig/Teresa Route Start Time Stop Time Status Last Admin Ondansetron HCl (Zofran Po) 4 mg ONCE ONCE PO 11/08/25 04:15 11/08/25 04:17 DC 11/08/25 04:15 Time of 1ST Reevaluation: 04:33 Reevaluation 1ST: Unchanged Patient Education/Counseling: Diagnosis, Treatment, Need For Follow Up Family Education/Counseling: Diagnosis, Treatment, Need For Follow Up Departure 1 Departure Time of Disposition: 06:00 Impression: Primary Impression: Headache Disposition: 01 HOME / SELF CARE / HOMELESS Condition: Stable e-Prescriptions Gabapentin (Once-Daily) (Gabapentin) 300 Mg Tab 300 MG PO Q6HP PRN, #60 TAB Prov: MANISH HARMON MD 11/08/25 Discharged With: Self Critical Care Note Critical Care Time?: No Stability Stability form required: No Heart Score Heart Score: Heart Score Response (Comments) Value History Slightly Suspicious 0 EKG Normal 0 Age >65 2 Risk Factors 1 or 2 risk factors 1 Troponin Normal limit 0 Total 3 I personally scribed for MANISH HARMON MD ([email or web address]) on 11/08/25 at 04:09. Electronically submitted by Emilee Collins ([email or web address]). I personally scribed for MANISH HARMON MD ([email or web address]) on 11/08/25 at 04:15. Electronically submitted by Emilee Collins (Merkle). MANISH HARMON MD Nov 08, 2025 04:09
[2025-11-08] MEDS: ONDANSETRON ODT 4 MG TAB PO ONE (04:15)
--- NOTE | 2025-11-08 04:48 | ECG ---
[facility] Test Date: 2025-11-08 Test Time: 04:43:17 Pat Name: BREANA REESE Department: Room: Gender: F Adjuster Arbitrator: : 1940 Requested By: MANISH HARMON Order Number: [id number] Reading MD: Tom Diane Measurements Intervals [place] Rate: 84 P: -12 [place]: 136 QRS: -5 QRSD: 93 T: 41 QT: 377 QTc: 446 Interpretive Statements Sinus rhythm Abnormal R-wave progression, early transition Consider anterior infarct Electronically Signed On 11-09-2025 16:28:17 PST by Tom Diane Please click the below link to view image of tracing.
[2025-11-08 05:02] VITALS: BP 146/86; PULSE 102; RESP 18; TEMP 97.7; O2SAT 95
--- NOTE | 2025-11-08 05:12 | DVH ---
EXAM: CT HEAD WITHOUT CONTRAST INDICATION: Headache. TECHNIQUE: CT of the head without intravenous contrast. Coronal and sagittal reformatted images are submitted. Radiation Dose : 1. Head: CT Dose: CTDI volume is 48.65 mGy. Dose-length product is 681.1 mGy*cm The dose indicators for CT are the volume Computed Tomography (CT) Dose Index (CTDIvol) and the Dose Length Product (DLP), and are measured in units of mGy and mGy-cm, respectively. These indicators are not patient dose, but values generated from the CT scanner acquisition factors. The report includes radiation exposure data for exposures received during this examination. All CT scans at this medical facility are performed using dose modulation techniques as appropriate to a performed exam including the following: Automated exposure control was utilized; adjustment of the MA and/or KV according to patient size; and use of iterative reconstruction technique. COMPARISON: MRI BRAIN HEAD WO CONTRAST on DOS: 06/05/25. FINDINGS: There is no evidence of acute intracranial hemorrhage, extra-axial collection, mass effect, midline shift, herniation or hydrocephalus. There are periventricular and subcortical hypodensities, nonspecific, but likely reflecting sequelae of chronic microvascular ischemic changes. The ventricles, sulci and cisterns are age appropriate. The hernandez-white differentiation is intact. The visualized paranasal sinuses and mastoid air cells are clear. No depressed calvarial fracture. The surrounding soft tissues are unremarkable. IMPRESSION: 1. No acute intracranial abnormality.
[2025-11-08] MEDS ORDERED: GABA300T4 PO (05:48)
== END 2025-11-08 06:00 | disposition home or self-care (01) ==
LOC: ER 03:45
DX: R51.9 Headache, unspecified (principal); R53.1 Weakness; I10 Essential (primary) hypertension; E11.9 Type 2 diabetes mellitus without complications; M19.90 Unspecified osteoarthritis, unspecified site
CPT/HCPCS: 70450; 82947; 93005; 99284; Q0162; 82962